=== PATIENT | male | born 1960 | race Caucasian/White ===

== ENCOUNTER → 2017-12-11 09:57 | Outpatient (CLI) | payer OTHER, SELFPAY ==
--- NOTE | 2017-12-11 15:29 | PFTCOMP_ITS ---
COMPLETE PULMONARY FUNCTION TEST INTERPRETATION Brief HPI: Patient is a 57 year old male, currently under the care of myself, who presents to [facility] for complete pulmonary function tests secondary to diagnosis of dyspnea. Respiratory therapist reports good effort and reproducible results. Interpretation: Forced expiration spirometry shows no large airways obstructive ventilatory defect with an FEV1 of 93% predicted. There is no significant bronchodilator response by ATS criteria. Spirograms are of good quality and plateau normally. The respiratory flow volume loop shows a normal pattern. Lung volumes by body plethysmography show a decreased total lung capacity at 5.25 L, 82% predicted. All other lung volumes are reduced symmetrically. Diffusion capacity by carbon monoxide is normal at 91% predicted. The airway resistance is normal. Compared to previous pulmonary function tests from 11/09/2016, there has been no significant change. Impression: Mild restrictive ventilatory defect with preserved diffusion capacity consistent with musculoskeletal limitation.
== END ==
PROVIDERS: Family Provider Internal Medicine; PCP Internal Medicine; Visit Provider Internal Medicine Critical Care Medicine
DX: J20.9 Acute bronchitis, unspecified (principal)
CPT/HCPCS: 94060; 94726; 94729

== ENCOUNTER 2020-08-26 07:52 | Outpatient (RCR) | payer OTHER, SELFPAY ==
[2017-12-20 12:40] VITALS: BMI 35.6
== END 2020-10-12 23:59 ==
LOC: IMMUN 07:52
PROVIDERS: PCP Internal Medicine; Referring Provider Family Medicine; Visit Provider Family Medicine
DX: Z23 Encounter for immunization (principal)
CPT/HCPCS: 0001A; 0002A; 91300

== ENCOUNTER → 2020-10-14 06:18 | Outpatient (CLI) | payer OTHER, SELFPAY ==
--- NOTE | 2020-10-14 18:18 | STRESSREP ---
Stress Test Report Exercise cardial perfusion stress test. 60-year-old man with a history of chest pain. Stress protocol: Rest EKG demonstrates normal sinus rhythm with a rate of 78 bpm normal intervals are noted resting blood pressure is 120/82 mmHg. The patient exercised according to regular Surjit protocol for total duration of 6 minutes and 30 seconds. Patient completed 30 seconds into stage III of the Surjit protocol the maximum heart rate attained was 150 bpm which was 94% of maximum predicted heart rate and maximum workload was 7.4 metabolic equivalents. At rest there were no ST or T wave changes noted to suggest ischemia and at peak exercise upsloping ST changes only were noted with did not meet the criteria for ischemia the test was terminated due to shortness of breath. The peak blood pressure was 140/62 mmHg. Myocardial perfusion protocol. 14.4 mCi of technetium 99m sestamibi was injected at rest. The patient exercised according to regular Surjit protocol for 6-1/2 minutes and at peak exercise 44.7 mCi of technetium 99m sestamibi was injected stress images were obtained stress and rest images were reconstructed in comparing the short axis vertical long and horizontal long axis. Gated images were also obtained Perfusion SPECT analysis: Review of the stress images demonstrate normal uptake of tracer noted in all areas of the myocardium. The resting images similarly demonstrate normal uptake of tracer noted in all areas of the myocardium. No areas of reversibility were noted to suggest ischemia and no previous infarct is noted. Gated SPECT analysis: The gated ejection fraction is 74%. Conclusion: Normal exercise myocardial perfusion stress test at a moderate workload. Preserved ejection fraction.
== END ==
PROVIDERS: PCP Internal Medicine; Referring Provider Internal Medicine; Visit Provider Internal Medicine
DX: R00.0 Tachycardia, unspecified (principal); R06.00 Dyspnea, unspecified; R06.02 Shortness of breath
CPT/HCPCS: 78452; 93017; A9500; A4216

== ENCOUNTER → 2022-11-17 | Outpatient (CLI) | payer BC, SELFPAY ==
--- NOTE | 2022-11-18 07:55 | PFT ---
INTRODUCTION: The patient is a 62-year-old male that presents for pulmonary function studies secondary to a diagnosis of asthma. Respiratory therapy reported good patient effort. Bronchodilators were used during testing. INTERPRETATION: Forced expiration spirometry demonstrates no evidence of a large airways obstructive ventilatory defect. There was no significant response to aerosolized bronchodilators. Spirograms are of good quality and plateau normally. Body plethysmography was performed and revealed a decreased TLC to 5.04 L, 79% of predicted, indicative of a mild restrictive ventilatory impairment. Diffusing capacity by single breath CO was within normal limits. IMPRESSION: Mild restrictive ventilatory impairment with preserved diffusing capacity.
== END | disposition home or self-care (01) ==
PROVIDERS: PCP Internal Medicine; Referring Provider Internal Medicine Critical Care Medicine; Visit Provider Internal Medicine Critical Care Medicine
DX: J45.909 Unspecified asthma, uncomplicated (principal)
CPT/HCPCS: 94060; 94726; 94729

== ENCOUNTER → 2024-01-01 | Outpatient (CLI) | payer MEDICARE, BC, SELFPAY ==
[2024-01-01 09:22] LABS: Absolute Lymphocyte Count 3.14 X10^3/uL (0.83-4.51); Basophil# 0.05 X10^3/uL; Basophil% 0.6 % (0-1); Eosinophil# 0.26 X10^3/uL; Eosinophils% 3.2 % (0-5); Hematocrit 47.7 % (40-54); Hemoglobin 15.8 g/dL (13.0-16.5); Lymphocyte # 3.14 X10^3/ul (0.83-4.51); Lymphocyte % 38.2 % (19-41); Mean Corp Hgb Conc 33.1 g/dL (32-36); Mean Corpuscular Hgb 30.1 pg (27.0-32.0); Mean Corpuscular Volume 90.9 fL (80-94); Mean Platelet Vol. 10.2 fl (6.2-12.0); Monocyte# 0.74 X10^3/uL; NRBC Flagged by Analyzer 0 % (0-5); Neutrophil % 48.6 % (47-70); Platelet Count 299 K/mm3 (150-450); RBC Distribution Width CV 12.2 % (11.6-14.6); RBC Distribution Width SD 40.6 fl (35.1-43.9); Red Blood Count 5.25 M/mm3 (4.6-6.2); White Blood Count 8.2 K/mm3 (4.4-11.0)
[2024-01-01 15:03] LABS: Vitamin B12 1375 pg/mL (211-911)
[2024-01-01 17:21] LABS: ALB/GLOB Ratio 0.9 RATIO (0.9-2.4); AST(SGOT) 23 U/L (15-37); Alanine Aminotransfer ALT/SGPT 35 U/L (16-61); Albumin, Serum 3.6 g/dL (3.2-5.0); Alkaline Phosphatase 106 U/L (45-117); Anion Gap 9 (5-15); BUN 13 mg/dL (7-18); BUN/Creat Ratio 13.8 RATIO (10-20); Calcium,Total 9.4 mg/dL (8.5-10.1); Chloride 101 mmol/L (98-107); Cholesterol 136 mg/dL (200); Creatinine, Serum 0.94 mg/dL (0.70-1.30); EST Glomerular Filtration Rate 85 mL/min (>60); Est Glom Filt Rate - Afr Amer 103 mL/min (>60); Ferritin 28 ng/mL (26-388); Globulin 3.8 g/dL (2.2-4.2); Glucose 157 mg/dL (74-106); High Density Lipoprotein 51 mg/dL; Potassium 4.2 mmol/L (3.5-5.1); Protein, Total 7.4 g/dL (6.4-8.2); Sodium Level 136 mmol/L (136-145); Triglycerides 184 mg/dL; Very Low Density Lipoprotein 37 mg/dL (5-40)
== END | disposition home or self-care (01) ==
PROVIDERS: PCP Internal Medicine; Referring Provider Nurse Practitioner Family; Visit Provider Nurse Practitioner Family
DX: R53.83 Other fatigue (principal); E11.9 Type 2 diabetes mellitus without complications; E55.9 Vitamin D deficiency, unspecified; D64.9 Anemia, unspecified
CPT/HCPCS: 36415; 80053; 80061; 82306; 82607; 82728; 84443; 85025

== ENCOUNTER → 2024-05-19 | Outpatient (CLI) | payer MEDICARE, BC, SELFPAY ==
[2024-05-19] MEDS: Zolpidem Tartrate 5 MG Tablet PO (21:25)
== END | disposition home or self-care (01) ==
LOC: SL 19:49
PROVIDERS: PCP Internal Medicine; Referring Provider Nurse Practitioner Family; Visit Provider Nurse Practitioner Family
DX: G47.33 Obstructive sleep apnea (adult) (pediatric) (principal)
CPT/HCPCS: 95810; 95811

== ENCOUNTER 2024-06-09 16:02 | Emergency (ER) | payer MEDICARE, BC, SELFPAY ==
[2024-06-09 16:03] VITALS: BP 120/73; PULSE 93; RESP 18; TEMP 36.6; O2SAT 98; BMI 31.0
[2024-06-09 17:42] VITALS: O2SAT 98
[2024-06-09] MEDS: 0.9% Normal Saline (500mL Bag) 500 ML 1000 ML IV (18:28)
--- NOTE | 2024-06-09 18:30 | RAD_ITS ---
PROCEDURE: CHEST PA AND LATERAL REASON FOR EXAM: Increased weakness; fatigue; cough and congestion. TECHNIQUE: Frontal and lateral views of the chest. COMPARISON: None. FINDINGS: The heart size is normal. The mediastinal contour is unremarkable. The lungs are clear. The bones are unremarkable. RAD/Chest PA and Lateral IMPRESSION: NEGATIVE CHEST Reading Location: [id number]
[2024-06-09 18:46] LABS: Absolute Lymphocyte Count 2.85 X10^3/uL (0.83-4.51); Absolute Neutrophil Count 2.3 X10^3/uL (2.0-7.7); Basophil# 0.01 X10^3/uL; Basophil% 0.2 % (0-1); Eosinophils% 1.7 % (0-5); Hematocrit 46.1 % (40-54); Hemoglobin 15.3 g/dL (13.0-16.5); Lymphocyte # 2.85 X10^3/ul (0.83-4.51); Lymphocyte % 48.4 % (19-41); Mean Corp Hgb Conc 33.2 g/dL (32-36); Mean Corpuscular Hgb 30.1 pg (27.0-32.0); Mean Corpuscular Volume 90.6 fL (80-94); Mean Platelet Vol. 10.3 fl (6.2-12.0); Monocyte# 0.62 X10^3/uL; Monocyte% 10.5 % (0-10); NRBC Flagged by Analyzer 0 % (0-5); Platelet Count 255 K/mm3 (150-450); RBC Distribution Width CV 12.1 % (11.6-14.6); RBC Distribution Width SD 40.2 fl (35.1-43.9); Red Blood Count 5.09 M/mm3 (4.6-6.2); White Blood Count 5.9 K/mm3 (4.4-11.0)
--- NOTE | 2024-06-09 18:47 | EDS_ITS ---
HPI History of Present Illness Chief Complaint: Shortness of Breath Informant: patient and spouse/S.O. Narrative Narrative: History of asthma and diabetes, 1 with history of fatigue not feeling well. Mild cough productive. No fevers. No urinary symptoms. Had diarrhea yesterday but states he must ate something bad. Denies black or bloody stools. Denies nausea or vomiting. States mild wheezing. Reports his pulse ox at home was in the 80s throughout the week. Denies any tobacco history. Prior similar symptoms: No PFSH PFSH Medical History Obesity Polyneuropathy due to type 2 diabetes mellitus Diabetes GERD (gastroesophageal reflux disease) Neuropathy Asthma Acute bronchitis Sepsis Hyperlipidemia Hypertension Type 2 diabetes mellitus Home Medications ?Medication ?Instructions ?Recorded ?Last Taken ?Type multivitamin (Multiple Vitamins 1 ea PO DAILY 08/22/16 08/21/16 History tablet) atorvastatin 10 mg tablet 10 mg PO QHS 10/13/20 Unknow n History tamsulosin 0.4 mg capsule 0.4 mg PO QHS 10/13/20 Unkno wn History pen needle, diabetic 32 gauge x #100 ea 10/26/21 Unkno wn Rx (BD Ultra-Fine Wendy Pen Needle) omeprazole magnesium 20 mg 20 mg PO DAILY 10/31/22 Unk nown History tablet,delayed release (Prilosec OTC) lisinopril 5 mg tablet 2.5 mg PO DAILY 06/25/23 Unk nown History metformin 1,000 mg tablet 1,000 mg PO BIDWMEAL #180 ta bs 10/06/23 Unknown Rx cyanocobalamin (vitamin B-12) 1,000 mcg PO DAILY 12/23 Unknown History 1,000 mcg tablet dulaglutide 4.5 mg/0.5 mL 4.5 mg (0.5 mL) subcut QWEEK #6 mL 02/04/24 Unknown Rx subcutaneous pen injector (Trulicity) dapagliflozin propanediol 10 mg 10 mg PO QDAY #90 tabs 04/09/24 Unknown Rx tablet (Farxiga) melatonin 5 mg capsule mg PO HS PRN 05/09/24 Unknow n History Allergy/AdvReac Type Severity Reaction Status Date / Time No Known Allergies Allergy Verified 06/09/24 16:03 Family History Father CVA (cerebral vascular accident) Diabetes Heart disease Myocardial infarction, Onset Age: 64 Mother Diabetes Grandfather Diabetes Other High cholesterol Hypertension Skin cancer Social History Smoking Status: Never smoker second hand exposure: No alcohol intake: never substance use type: does not use caffeine: No what type of physical activity do you participate in: none ROS ROS ED Constitutional Constitutional ED: Reports other Details: Fatigue ; Denies chills, fever(s) or sweats ENT ENT ED: Denies sore throat Cardiovascular Cardiovascular: Denies chest pain, leg edema, palpitations or racing heartbeat Respiratory/Chest Respiratory/Chest: Reports cough; Denies dyspnea or dyspnea on exertion Gastrointestinal Gastrointestinal: Reports diarrhea; Denies abdominal pain, nausea or vomiting Genitourinary Genitourinary ED: Denies dysuria, hematuria or urinary frequency Musculoskeletal Musculoskeletal: Denies back pain, extremity pain or neck pain Integumentary Denies rash or wounds Neurologic Neurologic: Denies headache(s), paresthesias or weakness EXAM Physical Exam Const Vital Signs: 06/09/24 16:03 06/09/24 17:42 06/09/24 20:00 Temperature 98 F 97.6 F L Temperature Source Oral Oral Pulse Rate 93 67 Respiratory Rate 18 18 Respiratory Effort Normal Respiratory Depth Normal Respiratory Pattern Normal Blood Pressure 120/73 112/84 H Blood Pressure Mean 88 93 Pulse Ox 98 98 Oxygen Delivery Method Room Air Room Air Room Air Positive well nourished and well developed General Appearance ED: well developed and NAD HEENT HEENT Narrative: Mild dry mucosal membranes. normocephalic and atraumatic Eyes General Eye ED: Yes normal appearance of both eyes Neck full ROM Chest Wall Chest: Negative for tenderness Resp normal respiratory effort and normal air movement Effort and Inspection: symmetric chest movement; Negative for respiratory distress Cardio regular rate, regular rhythm and no murmurs Peripheral Pulses: pulses 2+ throughout GI normal to inspection, nondistended, normoactive bowel sounds and non-tender Palpation: Negative for guarding or rebound tenderness present Extremity normal to inspection General Extremety ED: Negative for edema or tenderness General Extremity: Negative for edema Neuro oriented x3 and no sensory deficits noted Sensorium / Orientation: awake and alert Skin no rashes or lesions noted and no wounds MDM MDM MDM Narrative Medical decision making narrative: Interventions / MDM: Differential diagnosis: Viral syndrome, history of asthma Diagnosis considered but do not suspect: Pneumonia however chest x-ray negative. My EKG interpretation: N/A Imaging independently reviewed and interpreted by myself: 2 view chest x-ray no acute process also read by radiology. External documents reviewed: N/A Test considered but not ordered:N/A ED course: Vital stable 98% room air on arrival no respiratory distress. Cough fatigue with wheeze symptoms. Will check chest x-ray labs and viral swabs. Will dose with prednisone with his asthma history reported wheezing at home. Chest x-ray negative labs negative. Swabs positive for influenza A. Day 6 of symptoms outside the window for antivirals. He is continued on prednisone with his asthma history. Outpatient follow-up. All questions were answered. Re-evaluation: stable Disposition discussed with patient/family/significant other: Patient Case discussed with consulting clinician: N/A This note was generated with [email or web address] dictation software. It may contain incorrect words, spelling, and punctuation that were not noted in checking the note before signing. Lab Data Attestation: I reviewed the patient's lab results. Labs: Laboratory Results - last 24 hr 06/09/24 18:14 WBC 5.9 RBC 5.09 Hgb 15.3 Hct 46.1 MCV 90.6 MCH 30.1 MCHC 33.2 RDW Std Deviation 40.2 RDW Coeff of Mauro 12.1 Plt Count 255 MPV 10.3 Immature Gran % (Auto) 0.200 Neut % (Auto) 39.0 L Lymph % (Auto) 48.4 H [place] % (Auto) 10.5 H Eos % (Auto) 1.7 Baso % (Auto) 0.2 Absolute Neuts (auto) 2.3 Absolute Lymphs (auto) 2.85 Nucleated RBC % 0 Sodium 137 Potassium 4.1 Chloride 105 Carbon Dioxide 24.0 Anion Gap 8 BUN 13 Creatinine 0.85 Estim Creat Clear Calc 98.68 Est GFR (MDRD) Af Amer 116 Est GFR (MDRD) Non-Af 96 BUN/Creatinine Ratio 15.2 Glucose 132 H Calcium 8.9 Radiography Diagnostic Testing: Clinical Impression(s) from Imaging Studies Chest X-Ray 06/09/24 18:30 IMPRESSION: NEGATIVE CHEST Reading Location: [id number] Discharge Plan Triage Chief Complaint: Shortness of Breath ED Provider: Ed Montoya Dx/Rx/DC Orders Clinical Impression: Influenza A, Viral syndrome, History of diabetes mellitus Instructions: ED Influenza (Adult) Prescriptions: No Action atorvastatin 10 mg tablet 10 mg PO QHS tamsulosin 0.4 mg capsule 0.4 mg PO QHS (DME) pen needle, diabetic [BD Ultra-Fine Wendy Pen Needle] 32 gauge x 5/32 needle See Rx Instructions .Route Qty: 100 3RF Rx Instructions: once daily omeprazole magnesium [Prilosec OTC] 20 mg tablet,delayed release (DR/EC) 20 mg PO DAILY cyanocobalamin (vitamin B-12) 1,000 mcg tablet 1,000 mcg PO DAILY melatonin 5 mg capsule PO HS PRN multivitamin [Multiple Vitamins] 1 EACH tablet 1 ea PO DAILY Patient Comments: SUPPLEMENT lisinopril 5 mg tablet 2.5 mg PO DAILY Patient Comments: BLOOD PRESSURE metformin 1,000 mg tablet 1,000 mg PO BIDWMEAL Qty: 180 3RF Trulicity 4.5 mg/0.5 mL pen injector 4.5 mg subcut QWEEK Qty: 6 1RF dapagliflozin propanediol [Farxiga] 10 mg tablet 10 mg PO QDAY Qty: 90 3RF Primary Care Provider: Les Elizalde Referrals: Les Elizalde MD [Primary Care Provider] - 1 Week Activity Restrictions/Additional Instructions: Influenza A positive. COVID-negative. RSV negative. Chest x-ray negative. Labs stable glucose 132. Continue oral fluids for hydration. Follow-up with your doctor. Print Language: Tamazight Disposition Disposition: Home, Self Care Discharge Date/Time: 06/09/24 20:03
[2024-06-09 18:50] LABS: Anion Gap 8 (5-15); BUN 13 mg/dL (7-18); BUN/Creat Ratio 15.2 RATIO (10-20); Calcium,Total 8.9 mg/dL (8.5-10.1); Chloride 105 mmol/L (98-107); Creatinine, Serum 0.85 mg/dL (0.70-1.30); EST Glomerular Filtration Rate 96 mL/min (>60); Est Glom Filt Rate - Afr Amer 116 mL/min (>60); Estimated Creatinine Clearance 98.68 ml/min; Glucose 132 mg/dL (74-106); Potassium 4.1 mmol/L (3.5-5.1); Sodium Level 137 mmol/L (136-145)
[2024-06-09] MEDS: predniSONE 20 MG Tablet 60 MG PO (19:21)
[2024-06-09 20:00] VITALS: BP 112/84; PULSE 67; RESP 18; TEMP 36.4; O2SAT 98
== END 2024-06-09 20:03 | disposition home or self-care (01) ==
PROVIDERS: Emergency Provider Emergency Medicine; PCP Internal Medicine; Visit Provider Emergency Medicine
DX: J10.1 Influenza due to other identified influenza virus with other respiratory manifestations (principal); E11.42 Type 2 diabetes mellitus with diabetic polyneuropathy; I10 Essential (primary) hypertension; E78.5 Hyperlipidemia, unspecified; Z79.84 Long term (current) use of oral hypoglycemic drugs; Z79.85 Long-term (current) use of injectable non-insulin antidiabetic drugs; Z79.899 Other long term (current) drug therapy
CPT/HCPCS: 71046; 80048; 85025; 87631; 96360; 99282; A4216

== ENCOUNTER → 2024-06-13 | Outpatient (CLI) | payer MEDICARE, BC, SELFPAY ==
[2024-06-13] MEDS: Zaleplon 5 MG Capsule PO (22:11)
== END | disposition home or self-care (01) ==
LOC: SL 20:14
PROVIDERS: PCP Internal Medicine; Referring Provider Nurse Practitioner Family; Visit Provider Nurse Practitioner Family
DX: G47.33 Obstructive sleep apnea (adult) (pediatric) (principal)
CPT/HCPCS: 95811

== ENCOUNTER → 2024-09-09 | Outpatient (CLI) | payer MEDICARE, BC, SELFPAY | END | disposition home or self-care (01) | LOC: PSN 08:10 | PROVIDERS: PCP Internal Medicine; Referring Provider Nurse Practitioner Family; Visit Provider Nurse Practitioner Family | DX: R09.02 Hypoxemia (principal) | CPT/HCPCS: 94060; 94726; 94729 ==

== ENCOUNTER → 2024-09-16 | Outpatient (CLI) | payer MEDICARE, BC, SELFPAY ==
[2024-09-16 08:17] VITALS: PULSE 84; PULSE 86; PULSE 90; PULSE 96; PULSE 98; PULSE 99; O2SAT 93; O2SAT 94; O2SAT 95; O2SAT 96
--- NOTE | 2024-09-19 11:25 | PCM.PSN.6M ---
PSN 6 Minute Walk Test 6 Minute Walk Test 6 Minute Walk Test: 6 Minute Walk Test PSN:6-Minute Walk Test Start: 09/16/24 08:17 Freq: Status: Active Protocol: [id number] Document 09/16/24 08:17 DENZEL (Rec: 09/16/24 08:19 DENZEL [id number]) 6 Minute Walk Test Date Performed 09/16/24 Time Performed 08:00 Height 5 ft 9 in Weight: 215 lb Weight in Pounds [address]: Luanne Bar Assistive device None used: Pre-test Oxygen Delivery Room Air Method Pulse Ox (%) 96 Pulse Rate (60-100 86 beats/min) Dyspnea Emmy Scale ( 0 0-10) Exertion Emmy Scale 6 (6-20) 1st minute Oxygen Delivery Room Air Method Pulse Ox (%) 95 Pulse Rate (60-100 90 beats/min) 2nd minute Oxygen Delivery Room Air Method Pulse Ox (%) 94 Pulse Rate (60-100 96 beats/min) 3rd minute Oxygen Delivery Room Air Method Pulse Ox (%) 93 Pulse Rate (60-100 98 beats/min) 4th minute Oxygen Delivery Room Air Method Pulse Ox (%) 95 Pulse Rate (60-100 99 beats/min) 5th minute Oxygen Delivery Room Air Method Pulse Ox (%) 94 Pulse Rate (60-100 99 beats/min) 6th minute Oxygen Delivery Room Air Method Pulse Ox (%) 95 Pulse Rate (60-100 99 beats/min) Dyspnea Emmy Scale ( 2 0-10) Exertion Emmy Scale 12 (6-20) Post-test Oxygen Delivery Room Air Method Pulse Ox (%) 96 Pulse Rate (60-100 84 beats/min) Full Laps Walked 23 Partial Lap, Number 2 of Tiles Walked Total Distance 1359 Walked (ft) Interpretation Interpretation: The patient ambulated 1359 feet over the course of 6 minutes beginning on room air without assistive devices. Pretesting oxygen saturation was noted to be 96% on room air. With ambulation, the shawna oxygen saturation was 93%. There was no significant exertional oxygen desaturation. Recommendations Recommendations: There is no indication for the use of supplemental oxygen at this time.
== END | disposition home or self-care (01) ==
LOC: PSN 07:59
PROVIDERS: PCP Internal Medicine; Referring Provider Nurse Practitioner Family; Visit Provider Nurse Practitioner Family
DX: R09.02 Hypoxemia (principal)
CPT/HCPCS: 94618

== ENCOUNTER → 2024-12-11 | Outpatient (CLI) | payer MEDICARE, BC, SELFPAY ==
--- OUTSIDE RECORDS SUMMARY | 2024-12-11 09:52 | XMS RPT_ITS | CCD ---
Author Organization [facility] Care Team Providers Care Java Web Services Developer Name Role Phone Blake SOFTWARE CLERK, Mary Julianna Unavailable Unavaila ble Yensho SOFTWARE CLERK, Eli A Unavailable Unavailab le Blake SOFTWARE CLERK, Mary Julianna Unavailable Unavaila ble Blake SOFTWARE CLERK, Mary Julianna Unavailable Unavaila Les Huerta MD Primary Care Provider Les Viramontes MD Primary Care Provider Les Viramontes MD Primary Care Provider Dr. Les Viramontes Primary Care Provider Dr. Les Viramontes Referring Provider BEN Wick Attending Provider Dr. Surjit Barrera Attending Provider Dr. Surjit Barrera Referring Provider Dr. Surjit Barrera Other Provider Dr. Lex Dial Attending Provider Les Viramontes MD Primary Care Provider Juana CRITICAL CARE EDUCATOR.BUILDING INSPECTION ENGINEER, Marisa M Unavailable Dr. Les Viramontes MD Primary Care Provider Luanne Nice Attending Provider Luanne Nice Referring Provider Dr. Ed Montoya DO Attending Provider Dr. Ed Montoya DO Emergency Provider Dr. Les Viramontes MD Referring Provider Delano NURSING UNIT CLERK-CGladys Attending Provider [phone] VIRAMONTES, SHIVA Referring Unavailable VIRAMONTES, SHIVA Primary Care Unavailable VIRAMONTES, SHIVA Attending Unavailable VIRAMONTES, SHIVA Primary Care Unavailable SELF Referring Unavailable VIRAMONTES, SHIVA Primary Care Unavailable VIRAMONTES, SHIVA Primary Care Unavailable VIRAMONTES, SHIVA Attending Unavailable VIRAMONTES, SHIVA Referring Unavailable VIRAMONTES, SHIVA Primary Care Unavailable VIRAMONTES, SHIVA Primary Care Unavailable VIRAMONTES, SHIVA Attending Unavailable Dr. Les Viramontes MD Primary Care Provider Dipika GUTIERRES-CLuanne Attending Provider Dipika NURSING UNIT CLERK-C, Luanne Coto Referring Provider Dr. Lex Dial DO Attending Provider [phone] Dipika GUTIERRES-C, Luanne Coto Other Provider [phone] Tonio, Les Primary Care Unavailable dE Montoya Attending Unavailable Luanne Bar Attending Unavailable Luanne Bar Referring Unavailable Tonio, Les Primary Care Unavailable Gladys Wick Referring Unavailable Gladys Wick Attending Unavailable Viramontes, Les Primary Care Unavailable Luanne Bar Attending Unavailable Tonio, Les Primary Care Unavailable Tonio, Les Referring Unavailable Lex Dial Attending Unavailable Luanne Bar Referring Unavailable Tonio, Les Primary Care Unavailable Lex Dial Attending Unavailable Luanne Bar Consulting Unavailable Luanne Bar Referring Unavailable Viramontes, Les Primary Care Unavailable Gladys Wick Attending Unavailable Viramontes, Les Primary Care Unavailable Viramontes, Les Referring Unavailable Luanne Bar Attending Unavailable Viramontes, Les Primary Care Unavailable Viramontes, Les Referring Unavailable Gladys Wick Attending Unavailable Viramontes, Les Referring Unavailable Viramontes, Les Primary Care Unavailable Gladys Wick Attending Unavailable Viramontes, Les Referring Unavailable Viramontes, Les Primary Care Unavailable Gladys Wick Attending Unavailable Viramontes, Les Primary Care Unavailable Viramontes, Les Referring Unavailable Luanne Bar Attending Unavailable Les Viramontes Referring Unavailable Les Viramontes Primary Care Unavailable Luanne Bar Attending Unavailable Luanne Bar Referring Unavailable Les Viramontes Primary Care Unavailable Luanne Bar Attending Unavailable Luanne Bar Referring Unavailable Les Viramontes Primary Care Unavailable Luanne Bar Attending Unavailable Luanne Bar Referring Unavailable Les Viramontes Primary Care Unavailable Luanne Bar Attending Unavailable Luanne Bar Referring Unavailable Les Viramontes Primary [facility] Unavailable Allergies Allergy Classification Reported Allergen(s) Allergy Type Date of Onset Reaction(s) Facility (1 source) Seasonal Allergies: Uncoded; Translations: [Seasonal Allergies: Uncoded] Propensity to adverse reactions (disorder) [facility] Repository Medications Current Medications Medication Drug Class(es) Dates Sig (Normalized) Sig (Original) amoxicillin 875 mg / clavulanate 125 mg oral tablet (1 source) Penicillin-class Antibacterial Start: 10-08-2022 End: 10-13-2022 take 1 tablet by mouth twice daily amoxicillin-clavula jasen acid (AUGMENTIN) 875-125 mg per tablet Take 1 tablet by mouth twice daily for 5 days. 10 tablet 0 10/08/2022 10/13/2022 Active Comment on above: Take 1 tablet by marci th twice daily for 5 days. atorvastatin 10 mg oral tablet (20 sources) HMG-CoA Reductase Inhibitor Start: 10-13-2020 End: 07-01-2024 take 1 tablet by mouth at bedtime Atorvastatin 10 mg tablet Active 10 mg PO AT BEDTIME October 13, 2020 12:00am Comment on above: Take 1 tablet by marci th daily at bedtime. betamethasone 0.5 mg/ml / clotrimazole 10 mg/ml topical cream (1 source) Azole Antifungal, Corticosteroid Start: 05-10-2022 End: 05-24-2022 clotrimazole-betame thasone (LOTRISONE) cream Apply to affected area twice daily for 14 days. 45 g 0 05/10/2022 05/24/2022 Active Comment on above: Apply to affected ar ea twice daily for 14 days. cephalexin 500 mg oral capsule (1 source) Cephalosporin Antibacterial Start: 01-26-2024 End: 01-31-2024 take 1 capsule by mouth four times daily cephALEXin (KEFLEX) 500 mg capsule Take 1 capsule by mouth four times daily for 5 days. 20 capsule 01/26/2024 01/31/2024 Active ciclopirox 7.7 mg/ml topical cream (1 source) Start: 03-10-2022 End: 04-09-2022 ciclopirox (LOPROX) 0.77 % cream Indications: Erythema intertrigo Apply to affected area twice daily. Left axillary rash 30 g 0 03/10/2022 04/09/2022 Active Comment on above: Apply to affected ar ea twice daily. Left axillary rash dapagliflozin 10 mg oral tablet (6 sources) Sodium-Glucose Cotransporter 2 Inhibitor Start: 04-09-2024 End: 10-29-2024 take 1 tablet by mouth once daily Dapagliflozin Propanediol (Farxiga) 10 mg tablet Active 10 mg PO daily 90 October 29, 2024 11:32am Diabetes mellitus Type 2 diabetes mellitus with hyperglycemia dulaglutide (TRULICITY) 4.5 mg/0.5 mL pen injector (6 sources) Start: 09-21-2023 inject 4.5 mg by subcutaneous injection once dulaglutide (TRULICITY) 4.5 mg/0.5 mL pen injector Indications: Type 2 diabetes mellitus with diabetic neuropathy, without long-term current use of insulin (HCC) Inject 4.5 mg subcutaneously one time a week. Per Endo. 09/21/2023 Active Start: 09-21-2023 inject 4.5 mg by sub cutaneous injection once dulaglutide (TRULICITY) 4.5 mg/0.5 mL pen injector Indications: Type 2 diabetes mellitus with diabetic neuropathy, without long-term current use of insulin (HCC) Inject 4.5 mg subcutaneously one time a week. Per Endo. 0 09/21/2023 Active lisinopril 2.5 mg oral tablet (20 sources) Angiotensin Converting Enzyme Inhibitor Start: 11-28-2024 take 1 tablet by mouth every other day Lisinopril 2.5 mg tablet Active 2.5 mg PO .November 28, 2024 12:00am 2.5 mg orally Every other day; Start: 08-06-2024 End: 11-05-2024 take 2.5 mg by mouth every other day Lisinopril 5 mg tablet Discontinued 2.5 mg PO every other day August 06, 2024 2:54pm November 05, 2024 2:41pm Start: 06-25-2023 End: 08-06-2024 take 2.5 mg by mouth once daily Lisinopril 5 mg tablet Discontinued 2.5 mg PO DAILY June 25, 2023 3:20pm August 06, 2024 2:54pm Start: 03-23-2023 End: 07-01-2024 take 1 tablet by mouth once daily lisinopril 2.5 mg tablet Indications: Essential hypertension Take 1 tablet by mouth once daily. 90 tablet 3 07/02/2024 Active Start: 08-22-2016 End: 06-25-2023 take 1 tablet by mouth once daily Lisinopril 5 MG tablet Discontinued 5 mg PO DAILY August 22, 2016 12:00am June 25, 2023 3:21pm Comment on above: Take 1 tablet by marci th once daily. melatonin 5 mg oral capsule (6 sources) Start: 05-09-2024 take 1 mg by mouth at bedtime as needed Melatonin 5 mg capsule Active mg PO BEDTIME as needed May 09, 2024 1:00am End: 03-10-2022 take 1 tablet by mouth every twenty-four hours as needed melatonin 5 mg tablet Take 5 mg by mouth at bedtime as needed. 0 03/10/2022 Discontinued Comment on above: Take 5 mg by mouth a t bedtime as needed. MOUNJARO 2.5 mg/0.5 mL pen injector (1 source) Start: 09-02-19 25 inject 2.5 mg by subcutaneous injection once MOUNJARO 2.5 mg/0.5 mL pen injector Inject 2.5 mg subcutaneously one time a week. Per endo 2024 Active Multivitamin (Multiple Vitamins) 1 EACH tablet (4 sources) Start: 08-23-19 17 take 1 tablet by mouth once daily Multivitamin (Multiple Vitamins) 1 EACH tablet Active 1 NMA PO DAILY August 22, 2016 12:00am Start: 08-22-2016 take 1 tablet by marci th once daily Multivitamin (Multiple Vitamins) 1 EACH tablet Active 1 EACH PO DAILY August 22, 2016 12:00am MULTIVITAMIN TAB (15 sources) Start: 01-07-2008 MULTIVITAMIN TAB Indications: Diarrhea Take one(1) tablet daily. 0 01/07/2008 Active Comment on above: Take one(1) tablet d aily. omeprazole 20 mg delayed release oral tablet (15 sources) Proton Pump Inhibitor Start: 09-15-2022 take 1 tablet by mouth once daily Omeprazole Magnesium (Prilosec Otc) 20 mg tablet,delayed release (DR/EC) Active 20 mg PO DAILY October 31, 2022 12:00am Comment on above: Take 1 tablet by marci daily before breakfast. 1/2 hr before meal. sildenafil 100 mg oral tablet (3 sources) Phosphodiesterase 5 Inhibitor Start: 11-05-2024 take 50-100 mg by mouth once daily as needed Sildenafil 100 mg tablet Active 50 - 100 mg PO daily as needed November 05, 2024 12:00am Start: 09-26-2024 take 0.5-1 tablets b y mouth once daily as needed sildenafil (VIAGRA) 100 mg tablet Indications: Erectile dysfunction, unspecified erectile dysfunction type Take 0.5-1 tablets by mouth once daily as needed. Take 30-60 minutes before sexual activity. 5 tablet 1 09/26/2024 Active tamsulosin hydrochloride 0.4 mg oral capsule (20 sources) alpha-Adrenergic Paulino Start: 10-13-2020 End: 11-06-2024 take 1 capsule by mouth at bedtime Tamsulosin 0.4 mg capsule Active 0.4 mg PO AT BEDTIME October 13, 2020 12:00am Comment on above: Take 1 capsule by mo [facility] daily at bedtime. Tirzepatide (Mounjaro) 5 mg/0.5 mL pen injector (2 sources) Start: 11-05-2024 Tirzepatide (Mounjaro) 5 mg/0.5 mL pen injector Active 5 mg SC EVERY WEEK 2 November 05, 2024 12:00am Type 2 diabetes mellitus Type 2 diabetes mellitus without complications vitamin b12 1 mg oral tablet (3 sources) Vitamin B12 Start: 12-24-2023 take 1 tablet by mouth once daily Cyanocobalamin (Vitamin B-12) 1,000 mcg tablet Active 1000 ug PO DAILY December 24, 2023 12:00am Completed/Discontinued Medications Medication Drug Class(es) Dates Sig (Normalized) Sig (Original) 200 actuat albuterol 0.09 mg/actuat metered dose inhaler (4 sources) beta2-Adrenergic Agonist Start: 08-29-2016 take 2 puff(s) by inhalation every four hours as needed VENTOLIN HFA 108 (90 Base) MCG/ACT AERS INH 2 puffs q4h as needed ALBUTEROL SULFATE [id number] Mary Julianna Blake SOFTWARE CLERK Start: 08-29-2016 take 2 puff(s) by in halation every four hours as needed VENTOLIN HFA 108 (90 Base) MCG/ACT AERS INH 2 puffs q4h as needed ALBUTEROL SULFATE [id number] Mary Julianna Blake SOFTWARE CLERK azithromycin 250 mg oral tablet (4 sources) Macrolide Antimicrobial Start: 10-31-2022 End: 11-20-2022 Azithromycin 250 mg tablet Discontinued 0 PO .COMPLEX 6 0 October 31, 2022 12:00am November 20, 2022 1:30pm For 250 mg dose pack: take 500 mg today (day 1), then 250 mg for 4 days (days 2-5) PO Start: 10-31-2022 End: 11-20-2022 Azithromycin Discontinued 0 PO .COMPLEX 6 October 31, 2022 12:00am November 20, 2022 1:30pm For 250 mg dose pack: take 500 mg today (day 1), then 250 mg for 4 days (days 2-5) PO benzonatate 100 mg oral capsule (1 source) Non-narcotic Antitussive Start: 10-16-2022 take 100-200 mg by mouth every eight hours as needed for cough and cough benzonatate (TESSALON PERLES) 100 mg capsule Indications: Acute cough Take 1-2 capsules by mouth three times daily as needed. 30 capsule 0 10/16/2022 Active Comment on above: Take 1-2 capsules by mouth three times daily as needed. doxycycline hyclate 100 mg oral tablet (2 sources) Tetracycline-class Drug Start: 03-23-2023 End: 09-21-2023 take 1 tablet by mouth once daily doxycycline (VIBRA-TABS) 100 mg tablet Indications: Travel advice encounter Take 1 tablet by mouth once daily. Begin 1 day before foreign travel, and take for 4 weeks after returning from travel. 56 tablet 0 03/23/2023 09/21/2023 Discontinued Start: 05-29-2021 End: 10-28-2021 take 1 tablet by mouth once daily doxycycline (VIBRA-TABS) 100 mg tablet Indications: Travel advice encounter Take 1 tablet by mouth once daily. Begin 1 day before foreign travel, and take for 4 weeks after returning from travel. 56 tablet 0 05/29/2021 10/28/2021 Discontinued Comment on above: Take 1 tablet by marci once daily. Begin 1 day before foreign travel, and take for 4 weeks after returning from travel. Dulaglutide (20 sources) GLP-1 Receptor Agonist Start: 02-04-2024 End: 08-15-2024 Dulaglutide (Trulicity) 4.5 mg/0.5 mL pen injector Discontinued 4.5 mg SC EVERY WEEK 6 February 04, 2024 4:18pm August 15, 2024 1:43pm Type 2 diabetes mellitus Type 2 diabetes mellitus without complications Start: 02-04-2024 End: 08-15-2024 Dulaglutide (Trulicity) 4.5 mg/0.5 mL pen injector Discontinued 4.5 mg SC EVERY WEEK 6 February 04, 2024 4:18pm August 15, 2024 1:43pm Start: 11-15-2023 End: 02-04-2024 Dulaglutide (Trulicity) 4.5 mg/0.5 mL pen injector Discontinued 4.5 mg SC EVERY WEEK 6 November 15, 2023 2:34pm February 04, 2024 4:19pm Type 2 diabetes mellitus Type 2 diabetes mellitus without complications Start: 11-15-2023 End: 02-04-2024 Dulaglutide (Trulicity) 4.5 mg/0.5 mL pen injector Discontinued 4.5 mg SC EVERY WEEK 6 November 15, 2023 2:34pm February 04, 2024 4:19pm Start: 08-13-2023 End: 11-15-2023 Dulaglutide (Trulicity) 4.5 mg/0.5 mL pen injector Discontinued 4.5 mg SC EVERY WEEK 6 August 13, 2023 4:29pm November 15, 2023 2:34pm Type 2 diabetes mellitus Type 2 diabetes mellitus without complications Start: 08-13-2023 End: 11-15-2023 Dulaglutide (Trulicity) 4.5 mg/0.5 mL pen injector Discontinued 4.5 mg SC EVERY WEEK 6 August 13, 2023 4:29pm November 15, 2023 2:34pm Start: 08-07-2023 End: 08-13-2023 Dulaglutide (Trulicity) 4.5 mg/0.5 mL pen injector Discontinued 4.5 mg SC EVERY WEEK 6 August 07, 2023 5:21pm August 13, 2023 4:29pm Type 2 diabetes mellitus Type 2 diabetes mellitus without complications Start: 08-07-2023 End: 08-13-2023 Dulaglutide (Trulicity) 4.5 mg/0.5 mL pen injector Discontinued 4.5 mg SC EVERY WEEK August 07, 2023 5:21pm August 13, 2023 4:29pm Start: 06-25-2023 End: 08-07-2023 Dulaglutide (Trulicity) 4.5 mg/0.5 mL pen injector Discontinued 4.5 mg SC EVERY WEEK 6 June 25, 2023 1:00am August 07, 2023 5:22pm Type 2 diabetes mellitus Type 2 diabetes mellitus without complications Start: 06-25-2023 End: 08-07-2023 Dulaglutide (Trulicity) 4.5 mg/0.5 mL pen injector Discontinued 4.5 mg SC EVERY WEEK 6 June 25, 2023 1:00am August 07, 2023 5:22pm Start: 04-03-2023 End: 06-25-2023 Dulaglutide (Trulicity) 3 mg /0.5 mL pen injector Discontinued 3 mg SC EVERY WEEK 6 April 03, 2023 1:09pm June 25, 2023 3:45pm Diabetes mellitus Type 2 diabetes mellitus without complications Start: 04-03-2023 End: 06-25-2023 Dulaglutide (Trulicity) 3 mg /0.5 mL pen injector Discontinued 3 mg SC EVERY WEEK 6 April 03, 2023 1:09pm June 25, 2023 3:45pm Start: 03-01-2023 End: 04-03-2023 Dulaglutide (Trulicity) 3 mg /0.5 mL pen injector Discontinued 3 mg SC EVERY WEEK 6 March 01, 2023 5:06pm April 03, 2023 1:09pm Diabetes mellitus Type 2 diabetes mellitus without complications Start: 03-01-2023 End: 04-03-2023 Dulaglutide (Trulicity) 3 mg /0.5 mL pen injector Discontinued 3 mg SC EVERY WEEK 6 March 01, 2023 5:06pm April 03, 2023 1:09pm Start: 10-19-2022 End: 03-01-2023 Dulaglutide (Trulicity) 3 mg /0.5 mL pen injector Discontinued 3 mg SC EVERY WEEK 6 October 19, 2022 1:35pm March 01, 2023 5:06pm Diabetes mellitus Type 2 diabetes mellitus without complications Start: 10-19-2022 End: 03-01-2023 Dulaglutide (Trulicity) 3 mg /0.5 mL pen injector Discontinued 3 mg SC EVERY WEEK 6 October 19, 2022 1:35pm March 01, 2023 5:06pm Start: 10-19-2022 Dulaglutide (T rulicity) 3 mg/0.5 mL pen injector Active 3 MG SC EVERY WEEK 6 October 19, 2022 1:35pm Start: 08-21-2022 End: 10-19-2022 Dulaglutide (Trulicity) 3 mg /0.5 mL pen injector Discontinued 3 mg SC EVERY WEEK 6 August 21, 2022 12:00am October 19, 2022 1:35pm Diabetes mellitus Type 2 diabetes mellitus without complications Start: 08-21-2022 End: 10-19-2022 Dulaglutide (Trulicity) 3 mg /0.5 mL pen injector Discontinued 3 mg SC EVERY WEEK 6 August 21, 2022 12:00am October 19, 2022 1:35pm Start: 08-21-2022 End: 10-19-2022 Dulaglutide (Trulicity) 3 mg /0.5 mL pen injector Discontinued 3 MG SC EVERY WEEK 6 August 21, 2022 12:00am October 19, 2022 1:35pm Start: 12-05-2021 End: 09-15-2022 Dulaglutide (Trulicity) 1.5 mg/0.5 mL pen injector Discontinued 1.5 mg SC EVERY WEEK 6 April 17, 2022 9:19am August 21, 2022 1:43pm Diabetes mellitus Type 2 diabetes mellitus with hyperglycemia Start: 10-28-2021 End: 12-05-2021 Dulaglutide (Trulicity) 3 mg /0.5 mL pen injector Discontinued 3 mg SC EVERY WEEK 6 1 October 28, 2021 2:45pm December 05, 2021 2:55pm Start: 10-28-2021 End: 12-05-2021 Dulaglutide (Trulicity) 3 mg /0.5 mL pen injector Discontinued 3 mg SC EVERY WEEK 6 October 28, 2021 2:45pm December 05, 2021 2:55pm Start: 10-28-2021 End: 12-05-2021 Dulaglutide (Trulicity) 3 mg /0.5 mL pen injector Discontinued 3 MG SC EVERY WEEK 6 October 28, 2021 2:45pm December 05, 2021 2:55pm Start: 10-28-2021 End: 10-28-2021 Dulaglutide (Trulicity) 3 mg /0.5 mL pen injector Discontinued 3 mg SC EVERY WEEK 6 1 October 28, 2021 2:04pm October 28, 2021 2:45pm Start: 10-28-2021 End: 10-28-2021 Dulaglutide (Trulicity) 3 mg /0.5 mL pen injector Discontinued 3 mg SC EVERY WEEK 6 October 28, 2021 2:04pm October 28, 2021 2:45pm Start: 10-28-2021 End: 10-28-2021 Dulaglutide (Trulicity) 3 mg /0.5 mL pen injector Discontinued 3 MG SC EVERY WEEK 6 October 28, 2021 2:04pm October 28, 2021 2:45pm Start: 06-06-2021 End: 06-10-2021 Dulaglutide (Trulicity) 3 mg /0.5 mL pen injector Discontinued 3 mg SC EVERY WEEK 6 0 June 06, 2021 11:48am June 10, 2021 9:29am Start: 06-06-2021 End: 06-10-2021 Dulaglutide (Trulicity) 3 mg /0.5 mL pen injector Discontinued 3 mg SC EVERY WEEK June 06, 2021 11:48am June 10, 2021 9:29am Start: 06-06-2021 End: 06-10-2021 Dulaglutide (Trulicity) 3 mg /0.5 mL pen injector Discontinued 3 MG SC EVERY WEEK 6 June 06, 2021 11:48am June 10, 2021 9:29am Start: 11-01-2020 End: 06-06-2021 Dulaglutide (Trulicity) 3 mg /0.5 mL pen injector Discontinued 3 mg SC EVERY WEEK 6 November 01, 2020 12:00am June 06, 2021 11:49am Start: 11-01-2020 End: 06-06-2021 Dulaglutide (Trulicity) 3 mg /0.5 mL pen injector Discontinued 3 mg SC EVERY WEEK 6 November 01, 2020 12:00am June 06, 2021 11:49am Start: 11-01-2020 End: 06-06-2021 Dulaglutide (Trulicity) 3 mg /0.5 mL pen injector Discontinued 3 MG SC EVERY WEEK 6 November 01, 2020 12:00am June 06, 2021 11:49am Start: 10-13-2020 End: 11-01-2020 Dulaglutide (Trulicity) 1.5 mg/0.5 mL pen injector Discontinued 1.5 mg SC EVERY WEEK October 13, 2020 12:00am November 01, 2020 3:11pm Comment on above: Inject 1.5 mg subcut aneously one time a week. Inject once per week. Discard Pen After dulaglutide (TRULICITY) 3 mg/0.5 mL pen injector (1 source) Start: 021 End: 022 inject 3 mg by subcutaneous injection once dulaglutide (TRULICITY) 3 mg/0.5 mL pen injector Indications: Type 2 diabetes mellitus with diabetic neuropathy, without long-term current use of insulin (HCC) Inject 3 mg subcutaneously one time a week. Per Dr. Oneyda Haynes, endocrinology. 0 01/03/2021 10/28/2021 Discontinued Comment on above: Inject 3 mg subcutan eously one time a week. Per Dr. Oneyda Haynes, endocrinology. dulaglutide (TRULICITY) 3 mg/0.5 mL pen injector (5 sources) End: inject 3 mg by subcutaneous injection every week dulaglutide (TRULICITY) 3 mg/0.5 mL pen injector Indications: Type 2 diabetes mellitus with diabetic neuropathy, without long-term current use of insulin (HCC) Inject 3 mg subcutaneously one time a week. 09/21/2023 Discontinued End: 09-21-2023 inject 3 mg by subcutaneous injection every week dulaglutide (TRULICITY) 3 mg/0.5 mL pen injector Indications: Type 2 diabetes mellitus with diabetic neuropathy, without long-term current use of insulin (HCC) Inject 3 mg subcutaneously one time a week. 0 09/21/2023 Discontinued inject 3 mg by subcu taneous injection every week dulaglutide (TRULICITY) 3 mg/0.5 mL pen injector Indications: Type 2 diabetes mellitus with diabetic neuropathy, without long-term current use of insulin ([facility]) Inject 3 mg subcutaneously one time a week. 0 Active Comment on above: Inject 3 mg subcutan eously one time a week. empagliflozin 25 mg oral tablet (18 sources) Sodium-Glucose Cotransporter 2 Inhibitor Start: 06-25-19 End: 04-09-20 24 take 1 tablet by mouth once daily Empagliflozin (Jardiance) 25 mg tablet Discontinued 25 mg PO DAILY 3 March 11, 2024 8:58am April 09, 2024 9:25am Type 2 diabetes mellitus Type 2 diabetes mellitus without complications esomeprazole 20 mg delayed release oral capsule (9 sources) Proton Pump Inhibitor Start: 10-02-19 End: 11-01-19 23 take 1 capsule by mouth once daily Esomeprazole Magnesium (Nexium) 20 mg capsule,delayed release(DR/EC) Discontinued 20 mg PO DAILY October 13, 2020 12:00am October 31, 2022 1:51pm Comment on above: Take 1 capsule by [facility] daily before breakfast. 1/2 hr before meal. glipiZIDE er 5 mg 24 hr extended release oral tablet (20 sources) Sulfonylurea Start: 03-10-20 End: 09-16-19 23 take 1 tablet by mouth once daily glipiZIDE (GLUCOTROL XL) 5 mg 24 hr tablet Indications: Type 2 diabetes mellitus with diabetic neuropathy, without long-term current use of insulin ([facility]) Take 1 tablet by mouth once daily. 0 03/10/2022 09/15/2022 Discontinued Start: 07-11-2021 End: 09-21-2023 take 1 tablet by mouth twice daily Glipizide 5 mg tablet extended release 24hr Discontinued 5 mg PO TWICE A DAY 180 1 December 01, 2022 9:09am June 25, 2023 3:45pm Start: 04-26-2021 End: 10-28-2021 take 1 tablet by mouth once daily glipiZIDE (GLUCOTROL XL) 5 mg 24 hr tablet Indications: Type 2 diabetes mellitus with diabetic neuropathy, without long-term current use of insulin (HCC) Take 1 tablet by mouth once daily. 90 tablet 3 04/26/2021 10/28/2021 Discontinued Start: 10-13-2020 End: 07-11-2021 take 5 mg by mouth once daily Glipizide Discontinued 5 MG PO DAILY October 13, 2020 8:52am July 11, 2021 4:45pm Start: 08-22-2016 End: 07-11-2021 take 1 tablet by mouth once daily Glipizide 2.5 mg tablet extended release 24hr Discontinued 5 mg PO DAILY October 13, 2020 8:52am July 11, 2021 4:45pm Comment on above: Take 1 tablet by marci th twice daily with meals. Take 1 tablet by marci th once daily. Take 2 tablets by mo [facility] twice daily with meals. Take 1 tablet by marci th twice daily. Take 1 tablet by marci th two times a day. 3 ml insulin glargine 100 unt/ml pen injector (7 sources) Insulin Analog Start: End: inject 10 [IU] by subcutaneous injection once daily insulin glargine (LANTUS SOLOSTAR U-100 INSULIN) 100 unit/mL (3 mL) Indications: Type 2 diabetes mellitus with diabetic neuropathy, without long-term current use of insulin (HCC) Inject 10 Units subcutaneously once daily. 0 10/28/2021 03/10/2022 Discontinued (Course of therapy completed) Start: 10-26-2021 End: 08-21-2022 Insulin Glargine (Lantus Karen ostar U-100 Insulin) 100 unit/mL (3 mL) insulin pen Discontinued 15 U SC AT BEDTIME 13.5 1 October 26, 2021 12:00am August 21, 2022 1:43pm Comment on above: Inject 10 Units subc utaneously once daily. levoFLOXacin 500 mg oral tablet (8 sources) Quinolone Antimicrobial Start: 08-25-19 End: 12-21-19 take 1 tablet by mouth once daily Levofloxacin 500 MG tablet Discontinued 500 mg PO DAILY August 24, 2016 12:00am December 20, 2017 4:41pm metFORMIN hydrochloride 1000 mg oral tablet (20 sources) Biguanide Start: 07-12-19 End: 06-16-19 take 1 tablet by mouth twice daily at mealtime Metformin 1,000 mg tablet Discontinued 1000 mg PO 2 times per day with meals 180 3 October 06, 2023 8:41pm June 16, 2024 2:09pm Start: 07-11-2021 End: 07-11-2021 Metformin 500 mg tablet Discontinued NMA PO July 11, 2021 1:00am July 11, 2021 4:45pm Start: 04-26-2021 End: 07-01-2024 take 2 tablets by mouth twice daily at mealtime metFORMIN (GLUCOPHAGE) 500 mg tablet Indications: Type 2 diabetes mellitus with diabetic neuropathy, without long-term current use of insulin (HCC) Take 2 tablets by mouth two times a day with meals. 360 tablet 3 07/02/2024 Active Start: 08-22-2016 End: 11-02-2020 Metformin 1,000 mg tablet Discontinued 1000 mg PO .bidcm October 13, 2020 8:51am November 02, 2020 2:13pm Comment on above: Take 2 tablets by [facility] twice daily with meals. MULTIPLE VITAMINS-MINERALS (1 source) Start: 7 take 1 tablet by mouth once daily MULTI COMPLETE CAPS One tablet by mouth daily MULTIPLE VITAMINS-MINERALS [id number] Mary Julianna Blake SOFTWARE CLERK MULTIPLE VITAMINS-MINERALS (3 sources) Start: 7 take 1 tablet by mouth once daily MULTI COMPLETE CAPS One tablet by mouth daily MULTIPLE VITAMINS-MINERALS [id number] Mary Julianna Blake SOFTWARE CLERK pantoprazole 40 mg oral granules (8 sources) Proton Pump Inhibitor Start: 7 take 1 tablet by mouth once daily PROTONIX 40 MG PACK One tablet by mouth daily PANTOPRAZOLE SODIUM [id number] Mary Julianna Blake SOFTWARE CLERK Start: 08-29-2016 take 1 tablet by marci once daily PROTONIX 40 MG PACK One tablet by mouth daily PANTOPRAZOLE SODIUM [id number] Mary Blake NANETTE Start: 08-22-2016 End: 10-13-2020 take 1 tablet by mouth once daily Pantoprazole 40 MG tablet Discontinued 40 mg PO DAILY August 22, 2016 12:00am October 13, 2020 8:51am pravastatin sodium 10 mg oral tablet (8 sources) HMG-CoA Reductase Inhibitor Start: 08-22-2016 End: 10-13-2020 take 1 tablet by mouth once daily Pravastatin 10 MG tablet Discontinued 10 mg PO DAILY August 22, 2016 12:00am October 13, 2020 8:53am predniSONE 10 mg oral tablet (8 sources) Start: 10-31-2022 End: 11-20-2022 take 4 tablets by mouth once daily Prednisone 10 mg tablet Discontinued 10 mg PO DAILY 20 0 October 31, 2022 3:06pm November 20, 2022 1:31pm Take 4 tabs by mouth daily for 5 days Semaglutide (4 sources) Start: 06-10-2021 End: 10-26-2021 Semaglutide (Ozempic) 1 mg/dose (4 mg/3 mL) pen injector Discontinued 1 mg SC EVERY WEEK 9 June 10, 2021 1:00am October 26, 2021 8:06am Start: 06-10-2021 End: 10-26-2021 Semaglutide (Ozempic) 1 mg/d ose (4 mg/3 mL) pen injector Discontinued 1 mg SC EVERY WEEK June 10, 2021 1:00am October 26, 2021 8:06am Start: 06-10-2021 End: 10-26-2021 Semaglutide (Ozempic) 1 mg/d ose (4 mg/3 mL) pen injector Discontinued 1 MG SC EVERY WEEK June 10, 2021 1:00am October 26, 2021 8:06am Tirzepatide (Mounjaro) 2.5 mg/0.5 mL pen injector (6 sources) Start: 08-25-2024 End: 11-05-2024 Tirzepatide (Mounjaro) 2.5 mg/0.5 mL pen injector Discontinued 2.5 mg SC EVERY WEEK 2 3 August 25, 2024 2:20pm November 05, 2024 2:57pm Diabetes mellitus Type 2 diabetes mellitus with hyperglycemia Start: 08-25-2024 Tirzepatide (M ounjaro) 2.5 mg/0.5 mL pen injector Active 2.5 mg SC EVERY WEEK 2 August 25, 2024 2:20pm Start: 08-15-2024 End: 08-25-2024 Tirzepatide (Mounjaro) 2.5 m g/0.5 mL pen injector Discontinued 2.5 mg SC EVERY WEEK August 15, 2024 12:00am August 25, 2024 2:20pm for 4 weeks Problems Active Problems Problem Classification Problem Date Documented Date Episodic/Chronic Acute bronchitis (4 sources) Acute bronchitis; Translations: [Acute bronchitis, unspecified] 12-20-2017 Episodic Asthma (9 sources) Asthma; Translations: [Unspecified asthma, uncomplicated] 10-13-2020 Chronic Deficiency and other anemia (1 source) Anemia, unspecified; Translations: [Anemia, unspecified] Onset: 11-05-2024 Episodic Diabetes mellitus with complications (20 sources) Type 2 diabetes mellitus; Translations: [Type 2 diabetes mellitus with diabetic neuropathy, unspecified] Onset: 12-26-2018 Chronic Diabetes mellitus without complication (11 sources) Diabetes mellitus; Translations: [Type 2 diabetes mellitus without complications] Onset: 11-05-2024 07-11-2021 Chronic Disorders of lipid metabolism (20 sources) Hyperlipidemia; Translations: [Hyperlipidemia, unspecified] Onset: 04-23-2012 Chronic Esophageal disorders (20 sources) Gastroesophageal reflux disease; Translations: [Gastro-esophageal reflux disease without esophagitis] Onset: 07-11-2005 07-11-2005 Chronic Essential hypertension (20 sources) Essential hypertension; Translations: [Essential (primary) hypertension] Onset: 08-05-2015 Chronic Hyperplasia of prostate (20 sources) Benign prostatic hypertrophy with outflow obstruction; Translations: [Benign prostatic hyperplasia with lower urinary tract symptoms] Onset: 11-11-2013 11-11-2013 Chronic Immunizations and screening for infectious disease (6 sources) Exposure to Mycobacterium tuberculosis; Translations: [Needs influenza immunization] Onset: 12-18-2016 12-18-2016 Episodic Influenza (3 sources) Influenza due to Influenza A virus; Translations: [Influenza due to other identified influenza virus with other respiratory manifestations] 06-17-2024 Episodic Malaise and fatigue (1 source) Chronic fatigue, unspecified; Translations: [Chronic fatigue, unspecified] Onset: 11-05-2024 Chronic Malaise and fatigue (4 sources) Fatigue; Translations: [Other fatigue] Onset: 11-05-2024 12-24-2023 Episodic Nutritional deficiencies (1 source) Vitamin D deficiency, unspecified; Translations: [Vitamin D deficiency, unspecified] Onset: 11-05-2024 Chronic Open wounds of extremities (1 source) Laceration of left thumb; Translations: [Laceration without foreign body of left thumb without damage to nail, initial encounter] 01-26-2024 Episodic Other aftercare (1 source) Removal of sutures done; Translations: [Encounter for removal of sutures] 02-04-2024 Episodic Other connective tissue disease (1 source) Patellar tendinitis, left knee; Translations: [Patellar tendonitis of left knee] Onset: 09-26-2024 Episodic Other lower respiratory disease (4 sources) Dyspnea on exertion; Translations: [Other forms of dyspnea] 12-20-2017 Episodic Other lower respiratory disease (1 source) Cough; Translations: [Acute cough] 10-16-2022 Episodic Other lower respiratory disease (7 sources) Hypoxemia; Translations: [Hypoxemia] 08-15-2024 Episodic Other lower respiratory disease (2 sources) Hypoxemia; Translations: [Hypoxemia] Onset: 09-25-2024 Episodic Other male genital disorders (2 sources) Male erectile dysfunction, unspecified; Translations: [Impotence of organic origin] Onset: 09-26-2024 09-26-2024 Chronic Other nervous system disorders (7 sources) Neuropathy; Translations: [Polyneuropathy, unspecified] 10-13-2020 Chronic Other nervous system disorders (1 source) Other chronic pain; Translations: [Chronic hip pain, right] Onset: 09-26-2024 Chronic Other nervous system disorders (1 source) Polyneuropathy, unspecified; Translations: [Polyneuropathy, unspecified] Onset: 11-05-2024 Chronic Other non-traumatic joint disorders (1 source) Pain in right hip; Translations: [Chronic hip pain, right] Onset: 09-26-2024 Episodic Other nutritional; endocrine; and metabolic disorders (15 sources) Obese class I; Translations: [Obesity, unspecified] Onset: 10-01-2020 10-01-2020 Chronic Other nutritional; endocrine; and metabolic disorders (20 sources) Obese class II; Translations: [Obesity, unspecified] Onset: 12-25-2017 Resolved: 10-01-2020 Chronic Other nutritional; endocrine; and metabolic disorders (16 sources) Obesity; Translations: [Obesity, unspecified] Onset: 01-07-2008 Resolved: 12-25-2017 07-11-2021 Chronic Other nutritional; endocrine; and metabolic disorders (2 sources) Obesity, unspecified; Translations: [Obesity, unspecified] 08-21-2022 Chronic Other nutritional; endocrine; and metabolic disorders (1 source) Other obesity due to excess calories; Translations: [Other obesity due to excess calories] Onset: 11-05-2024 Chronic Other nutritional; endocrine; and metabolic disorders (1 source) Body mass index (BMI) 34.0-34.9, adult; Translations: [Body mass index [BMI] 34.0-34.9, adult] Onset: 11-05-2024 Chronic Other nutritional; endocrine; and metabolic disorders (3 sources) H/O: diabetes mellitus; Translations: [Personal history of other endocrine, nutritional and metabolic disease] 06-17-2024 Episodic Other screening for suspected conditions (not mental disorders or infectious disease) (1 source) Patient encounter status; Translations: [Encounter for screening for malignant neoplasm of prostate] Episodic Other upper respiratory disease (1 source) Chronic rhinitis; Translations: [Unspecified sinusitis (chronic)] Chronic Other upper respiratory infections (1 source) Chronic sinusitis, unspecified; Translations: [Unspecified sinusitis (chronic)] 10-31-2022 Chronic Residual codes; unclassified (20 sources) Obstructive sleep apnea syndrome; Translations: [Obstructive sleep apnea (adult) (pediatric)] Onset: 12-25-2017 07-01-2018 Chronic Residual codes; unclassified (3 sources) Obstructive sleep apnea (adult) (pediatric); Translations: [LONI on CPAP] Onset: 06-30-2024 Chronic Screening and history of mental health and substance abuse codes (2 sources) Encounter for screening for depression; Translations: [Encounter for screening examination for other mental health and behavioral disorders] Onset: 09-26-2024 Episodic Septicemia (except in labor) (4 sources) Sepsis; Translations: [Sepsis, unspecified organism] 12-20-2017 Episodic Viral infection (3 sources) Viral disease; Translations: [Viral infection, unspecified] 06-17-2024 Episodic Past or Other Problems Problem Classification Problem Date Documented Da te Episodic/Chronic Mood disorders (8 sources) Depressive disorder; Translations: [Other specified depressive episodes] Onset: 07-11-2005 Resolved: 10-30-2014 10-30-2014 Chronic Other and unspecified benign neoplasm (15 sources) Tubular adenoma of colon; Translations: [Benign neoplasm of colon, unspecified] Onset: 11-19-2014 01-03-2021 Episodic Other diseases of kidney and ureters (1 source) Other obstructive and reflux uropathy; Translations: [BPH with obstruction/lower urinary tract symptoms] Onset: 11-11-2013 Episodic Other gastrointestinal disorders (8 sources) Diarrhea; Translations: [Diarrhea, unspecified] Onset: 01-07-2008 Resolved: 07-26-2009 07-26-2009 Episodic Other inflammatory condition of skin (15 sources) Intertrigo; Translations: [Erythema intertrigo] Onset: 03-10-2022 Episodic Other lower respiratory disease (4 sources) Dyspnea; Translations: [Shortness of breath] Onset: 08-29-2016 08-29-2016 Episodic Other lower respiratory disease (1 source) Shortness of breath; Translations: [Shortness of breath] Onset: 06-26-2024 Episodic Other nutritional; endocrine; and metabolic disorders (8 sources) Metabolic syndrome X; Translations: [Dysmetabolic syndrome] Onset: 11-12-2009 Resolved: 10-19-2011 10-19-2011 Chronic Residual codes; unclassified (4 sources) Hypersomnia; Translations: [Hypersomnia, unspecified] Onset: 08-29-2016 08-29-2016 Episodic Results Test Name Value Interpretation Reference Range Facility Pulmonary Visit Reporton Pulmonary Visit Report [facility] [place] [address] [place] [address] OFFICE VISIT Date of Service: 11/28/24 MR#: [id number] Acct: [id number] Name: LELE PASTRANA Rep #: [id number] : 1960 Provider: Luanne Bar NP Age/Sex: 64/M Location: [facility] [place].[facility] Status: Signed Assessment and Plan Assessment and Plan (1) LONI (obstructive sleep apnea): Status: Chronic Plan: Obstructive sleep apnea is well-controlled with use of CPAP at 5 cm. The patient is receiving significant benefit from using the device. I have recommended that a nocturnal oximetry be performed on CPAP 5 cm prior to next follow-up in 3 to 4 months. The patient should continue to use a nasal style mask. There is no indication for a titration study at this time. Compliance download on follow-up. (2) Asthma: Status: Chronic Qualifiers: Asthma complication type: uncomplicated Asthma persistence: unspecified Asthma severity: unspecified severity Qualified Code(s): J45.909 - Unspecified asthma, uncomplicated Plan: There is no evidence to suggest asthma on his recent PFT. He has not had an albuterol inhaler for 15-17 years. He is to notify this practice if he has worsening respiratory symptoms. (3) Hypoxemia: Status: Acute Plan: I strongly suspect that the nocturnal hypoxemia identified on sleep testing was due to uncontrolled sleep apnea because the recent PFT did not show gas transfer abnormality or hypoxemia on the 6- minute walk test. I have recommended that a nocturnal oximetry be performed on PAP therapy to ensure that the nocturnal hypoxemia is controlled with PAP therapy. The patient is agreeable to this plan. Orders: Orders OutPt Pulse Ox/Cont Overnight Today G47.33 - Obstructive sleep apnea (adult) (pediatric) Plan Details Follow Up: 4 to 6 months (LMR) HPI HPI Comments Details: This 64 year old male patient presents to the office today to review recent testing. He is ambulatory and currently on room air. Since last follow-up he has not had recent respiratory illness requiring oral prednisone or antibiotics. He has not been seen in the hospital or require ER or urgent care. He has had no recent exacerbation of his asthma. He is not currently on inhaled therapy. He denies shortness of breath. He is denying cough and sputum production. He denies any wheezing, chest tightness, chest pain or palpitations. He denies fever, chills or body aches. He is a lifetime non-smoker. He has noticed a difference in the quality of his sleep since using the pap device. He is sleeping through the night better. He is not awakening as often. He does feel rested on awakening. He is not napping. He is not struggling with claustrophobia as he was anticipating because he is using a nasal style mask. He is not experiencing oral dryness. He reports compliant use of PAP therapy. He does not have mask leak. Pulmonary function test completed on November 17, 2022. Impression is mild restrictive ventilatory impairment with preserved diffusing capacity. PSG from May 19 2024 showed moderate obstructive sleep apnea with hypoxemia identified and average saturation at 87% during sleep. Documentation reviewed with patient today includes: Compliance download from October 25, 2024 shows use of CPAP 5 cm at 100% compliance, 8 hours and 26 minutes nightly average. There is minimal air leak identified. AHI is 1.1. PFT from September 09, 2024 is grossly normal. 6-minute walk test from September 16, 2024 shows no significant exertional oxygen desaturation. There is no indication for the use of supplemental oxygen at this time. Intake Vital Signs 09/16/24 08:17 11/28/24 12:22 Height 5 ft 9 in 5 ft 9 in Weight: 220 lb BMI 32.5 BP 128/76 H Blood Pressure Location Lt brachial Position Sitting Respiration 16 Pulse 76 Pulse Source Monitor Temp 97.3 F L Temperature Source Temporal Artery Pulse Oximetry (%) 96 Oxygen Delivery Method room air Intake Visit Reasons: 3 M FU Chief Complaint: f/u diabetes Supervisor Brake Repair Required: No DME Vendor: Ann Accompanied by: Self Is patient in pain?: No Allergies No Known Allergies Allergy (Verified 11/28/24 14:44) Medications ???Medication ???Instructions ???Recorded ???Confirmed ???Type multivitamin (Multiple Vitamins 1 ea PO DAILY 08/22/16 11/28/24 giddy story tablet) atorvastatin 10 mg tablet 10 mg PO QHS 10/13/20 11/28/24 His tory tamsulosin 0.4 mg capsule 0.4 mg PO QHS 10/13/20 11/28/24 Hi story pen needle, diabetic 32 gauge x #100 ea 10/26/21 11/28/24 Rx (BD Ultra-Fine Wendy Pen Needle) omeprazole magnesium 20 mg 20 mg PO DAILY 10/31/22 11/28/24 H istory tablet,delayed release (Prilosec OTC) cyanocobalamin (vitamin B-12) 1,000 mcg PO DAILY 12/24/2311/28/ (more content not included)... Normal [facility] Endocrinology Visit Reporton 11-05-2024 Endocrinology Visit Report [facility] [address] [place] [address] OFFICE VISIT Date of Service: 11/05/24 MR#: [id number] Acct: [id number] Name: LELE PASTRANA Rep #: [id number] : 1960 Provider: BEN power Age/Sex: 64/M [place] [facility] [place]: Signed Intake Vital Signs 08/06/24 14:49 09/16/24 08:17 11/05/24 14:37 Height 5 ft 9 in 5 ft 9 in 5 ft 9 in Weight: 221 lb 2 oz BMI 32.6 BP 123/78 H Blood Pressure Location Rt brachial Position Sitting Pulse 85 Pulse Source Monitor Pulse Oximetry (%) 94 Oxygen Delivery Method room air Intake Visit Reasons: 3 M FU, RS 07/31 Chief Complaint: f/u diabetes Is patient in pain?: No Allergies No Known Allergies Allergy (Verified 11/05/24 14:41) Medications ???Medication ???Instructions ???Recorded ???Confirmed ???Type multivitamin (Multiple Vitamins 1 ea PO DAILY 08/22/16 11/05/24 Hi story tablet) atorvastatin 10 mg tablet 10 mg PO QHS 10/13/20 11/05/24 His tory tamsulosin 0.4 mg capsule 0.4 mg PO QHS 10/13/20 11/05/24 Hi story pen needle, diabetic 32 gauge x #100 ea 10/26/21 11/05/24 Rx (BD Ultra-Fine Wendy Pen Needle) omeprazole magnesium 20 mg 20 mg PO DAILY 10/31/22 11/05/24 H istory tablet,delayed release (Prilosec OTC) cyanocobalamin (vitamin B-12) 1,000 mcg PO DAILY 12/24/23 History 1,000 mcg tablet melatonin 5 mg capsule mg PO HS PRN 05/09/24 11/05/24 His tory metformin 1,000 mg tablet 1,000 mg PO BIDWMEAL #180 tabs 02/2811/05/24 Rx dapagliflozin propanediol 10 mg 10 mg PO QDAY #90 tabs 10/29/24 Rx tablet (Farxiga) sildenafil 100 mg tablet 50 - 100 mg PO QDAY PRN 11/05/24 0 11/05/24 History tirzepatide 5 mg/0.5 mL 5 mg (0.5 mL) subcut QWEEK #2 mL 0 11/05/24 11/05/24 Rx subcutaneous pen injector (Mounjaro) Have you fallen in the past year?: No PFSH Medical History Obesity Polyneuropathy due to type 2 diabetes mellitus Diabetes GERD (gastroesophageal reflux disease) Neuropathy Asthma Acute bronchitis Sepsis Hyperlipidemia Hypertension Type 2 diabetes mellitus Family History Father CVA (cerebral vascular accident) Diabetes Heart disease Myocardial infarction, Onset Age: 64 Mother Diabetes Grandfather Diabetes Other High cholesterol Hypertension Skin cancer Social History Smoking Status: Never smoker second hand exposure: No alcohol intake: never substance use type: does not use caffeine: No what type of physical activity do you participate in: none HPI HPI Chief Complaint: f/u diabetes Details: LELE PASTRANA, is a 64 M who presents to the office today for evaluation and management of diabetes. A1C today is 7.6%, essentially unchanged from 08/06/24. Weight is stable. Currently taking Farixga 10 mg once daily, metformin 1 gm BID with food, and Mounjaro 2.5 mg qweek- tolerating well. He admits that his diet is high in processed carbs, he does not enjoy eating vegetables. BP is controlled. ACEI was recently discontinued d/t postural hypotension. He reports symptoms have resolved since discontinuing medication. He takes a daily statin. He has tightly controlled cholesterol. He recently had labs completely with PCP. Denies any acute concerns. ROS Const Constitutional: No fatigue or weight change ENT ENT: No dizziness/vertigo Cardio Cardiology: No chest pain at rest, chest pain with exertion, shortness of breath or palpitations Skin Skin: No wounds Endo Endocrine: No fatigue or weight change Exam Const General: cooperative, healthy appearing, comfortable and no acute distress Nutritional Appearance: obese Orientation: alert, awake and oriented x3 HENMT Head: normal to inspection Ears: hearing grossly normal bilaterally Nose: external nose normal Face and sinus: normal facial exam Eyes General: appearance normal, both eyes and all related structures Alignment and Position: alignment normal Sclera: sclerae normal Neck Neck: normal visual inspection Chest Chest palpation inspection: normal inspection of the chest Resp Effort Inspection: normal respiratory effort, able to speak in complete sentences, symmetric chest movement, normal respiratory pattern, no audible wheezes and no cough Auscultation: Bilateral: Clear to Auscultation Cardio Rate: regular rate Rhythm: regular rhythm GI Inspection: obesity Musc Cervical Spine: normal cervical lordosis Thoracic/Lumbar Spine: thoracic and lumbar spine normal to inspection Skin General: no rashes or lesions noted Lesions: no le (more content not included)... Normal [facility] - Hematology and Cell countsOrdered By: Gladys Wick on 11-05-2024 HbA1c (Bld) [Mass fraction] 7.6 % High 4.2-6.3 [facility] CNOVon 09-26-2024 CNOV Office Visit (INTMWS) LELE PASTRANA ([id number]) 1960 M Date Time Provider Department 09/26/24 2:20 PM LES VIRAMONTES INTMWS During your visit today, we recorded the following information about you: Pulse Respiration Blood pressure Weight 74/minute 14/minute 124/80 99.9 kg Height 1.73 m Les Viramontes MD 09/26/2024 3:45 PM Signed Lele Barrios Zeina is a 64 year old male here for a Medicare wellness visit. Medicare Health Risk Assessment General Health Good Exercise: Minutes/Day Patient declined Exercise: Days/Week Patient declined Alcohol: Daily Use Never Alcohol: Drinks/Day Patient declined Alcohol: 6 or more drinks Patient declined Feel off balance No Concerns: Teeth/Dentures No Concerns: Sexual function Yes x 3 years Troubled by feelings None of the above Frequency: Eating healthy diet Decline ADLs requiring help None of the above Safety precautions in home/vehicle Yes Smoke, vape, chews tobacco No Difficulty hearing No Difficulty seeing No Current Providers Specialists: I have reviewed specialist-related care of the patient in the medical record. Current care team: Patient Care Team: Les Viramontes MD as PCP - General Marisa Arias APRN.BUILDING INSPECTION ENGINEER as Histologist Technologist (Internal Medicine) Outside specialists seen: Aldair Haynes MD; [facility]. Rashard Leon MD, Ophthalmology. Luanne Faust APRN, CNP, [facility]. Medical/Family history review Reviewed and updated problem list, medical/surgical/fam sharon/social history, medications, and allergies. Opioid use review Opioid Medications (last 90 days) No data to display Anxiety/Depression screening PHQ-2 Score: 0 (Lower risk for depression) GIAN-7 Score: 1 (Minimal Anxiety) Recommendation: no further intervention at this time Cognitive screening Mini Cog Score: 5 Cognitive screening reviewed and No further action needed (score 3-5). Functional Observation Was the patient's Timed Up AND Go test unsteady or >= 12 seconds? No Advance Care Planning Surrogate decision maker documented and/or advance directives scanned in chart Measurements BP 124/80 Pulse 74 Resp 14 Ht 173 cm (5' 8.11) Wt 99.9 kg (220 lb 3.8 oz) SpO2 98% BMI 33.38 kg/m? Vision Screening: Follows with optometry/ophthalmol ogy Right: 20/20 Left: 20/ 20 Both: 20/15 Assessment/Plan Medicare annual wellness visit, initial (Z00.00) - Counseled on healthy diet and regular exercise - Fall avoidance information provided - Personalized prevention plan provided - Discussed need for and benefit of weight loss. BMI 33.38 kg/(m2) Les Viramontes MD 09/26/2024 3:45 PM Signed This note was created using NoteWriter. Subjective Lele Pastrana is a 64 year old male. His hypertension was controlled off lisinopril. Diabetes was improving. Lipids were controlled. He had right hip pain for 4-5 months after prolonged sitting, improving with activity. He had remote soccer right hip injury. He also developed left knee pain for 3 months after jumping on a bed and noticing a pop. No limping and no swelling was noted. Pain was below the knee cap precipitated by certain twisting movement. He had not needed medication for his pain. He was now on CPAP for obstructive sleep apnea. He complained of erectile dysfunction for a few years, not previously addressed. He might travel to [place] 10[place]12-10/19/24 at 9000 feet. He will call if travel advise needed. Review of Systems Constitutional: Negative for fatigue and unexpected weight change. Respiratory: Negative for cough and shortness of breath. Cardiovascular: Negative for chest pain, palpitations and leg swelling. Gastrointestinal: Negative for abdominal pain, constipation and diarrhea. Genitourinary: Negative for difficulty urinating and dysuria. Musculoskeletal: Positive for arthralgias. Neurological: Negative for dizziness and headaches. ACTIVE PROBLEM LIST Esophageal Reflux Type 2 Diabetes Mellitus With Diabetic Neuropathy, Without Long-Term Current Use of Insulin ([facility]) Hyperlipidemia With Target Ldl Less Than 100 Bph With Obstruction/Lower Urinary Tract Symptoms Essential Hypertension Loni On Cpap Obesity, Class I, Bmi 30-34.9 Tubular Adenoma of Colon Obesity, Class II, Bmi 35-39.9 Erythema Intertrigo Erectile Dysfunction Social History Tobacco Use Smoking status: Never Smokeless tobacco: Never Vaping Use Vaping status: Never Used Substance Use Topics Alcohol use: No Drug use: No Current Outpatient Medications Medication Sig MOUNJARO 2.5 mg/0.5 mL pen injector Inject 2.5 mg subcutaneously one time a week. Per endo dapagliflozin propanediol (FARXIGA) 10 mg tablet Take 1 tablet by mouth once daily. Per endo atorvastatin (LIPITOR) 10 mg tablet Take 1 tablet by mouth daily at bedtime. tamsulosin (FLOMAX) 0.4 mg Take 1 caps (more content not included)... Normal [facility] ALBUMIN/CREATININE RATIO, UR INEon 09-22-2024 Albumin DL <= 20 mg/L (U) [Mass/Vol] mg/dL Normal [facility] Comment on above: Order Comment: Speci men Type: URINE SPECIMEN Ordering Facility: [facility] Address: [address] [place] [address] Performed By: #### U ACR #### [facility] CLIA [id number] [address] [place] [address] [place] Albumin/Creatinine (U) [Mass ratio] <7 Normal <30 [facility] Comment on above: Order Comment: Speci men Type: URINE SPECIMEN Ordering Facility: [facility] Address: [address] [place] [address] Result Comment: Adul t Male and Female Nephrotic Criteria: <30 mg/g is considered normal to mildly increased 30-300 mg/g is considered moderately increased >300 mg/g is considered severely increased KDIGO. (2013). KDIGO 2012 Clinical Practice Guideline for the Evaluation and Management of Chronic Kidney Disease. Official Journal of the International Society of Nephrology, 3(1), 1-150. Performed By: #### U ACR #### [facility] CLIA [id number] [address] [place] [address] [place] Creatinine (U) [Mass/Vol] 168.0 mg/dL Normal 20.0-300.0 [facility] Comment on above: Order Comment: Speci men Type: URINE SPECIMEN Ordering Facility: [facility] Address: [address] [place] [address] Performed By: #### U ACR #### [facility] CLIA [id number] [address] [place] [address] [place] Basic metabolic 2000 panelon 09-22-2024 Anion gap [Moles/Vol] 13 mmol/L Normal 8-15 [facility] Comment on above: Order Comment: Speci men Type: BLOOD SPECIMEN Ordering Facility: [facility] Address: [address] [place] [address] Performed By: #### 2 4331-1, 24268-1 #### [facility] CLIA [id number] [address] [place] [address] [place] Calcium [Mass/Vol] 9.0 mg/dL Normal 8.5-10.[address] [facility] Comment on above: Order Comment: Speci men Type: BLOOD SPECIMEN Ordering Facility: [facility] Address: [address] [place] [address] Performed By: #### 2 4331-1, 03246-0 #### [facility] CLIA [id number] [address] [place] [address] [place] Chloride [Moles/Vol] 101 mmol/L Normal 98-107 [facility] Comment on above: Order Comment: Speci men Type: BLOOD SPECIMEN Ordering Facility: [facility] Address: [address] [place] [address] Performed By: #### 2 4331-1, 14031-2 #### [facility] CLIA [id number] [address] [place] [address] [place] CO2 [Moles/Vol] 26 mmol/L Normal 22-30 [facility] Comment on above: Order Comment: Speci men Type: BLOOD SPECIMEN Ordering Facility: [facility] Address: [address] [place] [address] Performed By: #### 2 4331-1, 86305-1 #### [facility] CLIA [id number] [address] [place] [address] [place] Creatinine [Mass/Vol] 0.86 mg/dL Normal 0.73-1.22 [facility] Comment on above: Order Comment: Speci men Type: BLOOD SPECIMEN Ordering Facility: [facility] Address: [address] [place] [address] Performed By: #### 2 4331-1, 46215-5 #### [facility] CLIA [id number] [address] [place] [address] [place] Creatinine and Glomerular filtration rate.predicted panel (S/P/Bld) 95 mL/min/1.73m??? Normal >=60 [facility] Comment on above: Order Comment: Speci men Type: BLOOD SPECIMEN Ordering Facility: [facility] Address: [address] [place] [address] Result Comment: Karen mated Glomerular Filtration Rate (eGFR) is calculated using the 2020 CKD-EPI creatinine equation. This equation utilizes serum creatinine, sex, and age as parameters. The creatinine assay has traceable calibration to isotope dilution-mass spectrometry. Refer to KDIGO guidelines for clinical interpretation. In patients with unstable renal function, e.g. those with acute kidney injury, the eGFR may not accurately reflect actual GFR. Performed By: #### 2 4331-1, 64166-6 #### [facility] CLIA [id number] [address] [place] [address] [place] Glucose [Mass/Vol] 141 mg/dL High 74-[address] [facility] Comment on above: Order Comment: Neel mtz Type: BLOOD SPECIMEN Ordering Facility: [facility] Address: [address] [place] [address] Result Comment: The [place] Diabetes Association (ADA) provides guidance for cutoff values for fasting glucose and random glucose. The ADA defines fasting as no caloric intake for at least 8 hours. Fasting plasma glucose results between 100 to 125 mg/dL indicate increased risk for diabetes (prediabetes). Fasting plasma glucose results greater than or equal to 126 mg/dL meet the criteria for diagnosis of diabetes. In the absence of unequivocal hyperglycemia, results should be confirmed by repeat testing. In a patient with classic symptoms of hyperglycemia or hyperglycemic crisis, random plasma glucose results greater than or equal to 200 mg/dL meet the criteria for diagnosis of diabetes. Reference: Standards of Medical Care in Diabetes 2016, [place] Diabetes Association. Diabetes Care. 2016.39(Suppl 1). Performed By: #### 2 4331-, 31147-8 #### [facility] CLIA [id number] [address] [place] [address] [place] Potassium [Moles/Vol] 4.1 mmol/L Normal 3.7-5.1 [facility] Comment on above: Order Comment: Neel mtz Type: BLOOD SPECIMEN Ordering Facility: [facility] Address: [address] [place] [address] Performed By: #### 2 4331-, 93180-5 #### [facility] CLIA [id number] [address] [place] [address] [place] Sodium [Moles/Vol] 140 mmol/L Normal 136-[address] [facility] Comment on above: Order Comment: Speci men Type: BLOOD SPECIMEN Ordering Facility: [facility] Address: [address] [place] [address] Performed By: #### 2 4331-1, 35014-3 #### [facility] CLIA [id number] [address] [place] [address] [place] Urea nitrogen [Mass/Vol] 10 mg/dL Normal 9-24 [facility] Comment on above: Order Comment: Speci men Type: BLOOD SPECIMEN Ordering Facility: [facility] Address: [address] [place] [address] Performed By: #### 2 4331-1, 50976-6 #### [facility] CLIA [id number] [address] [place] [address] [place] HbA1c (Bld)on 09-22-2024 Average glucose Estimated from glycated hemoglobin (Bld) [Mass/Vol] 166 mg/dL Normal [facility] Comment on above: Order Comment: Speci men Type: BLOOD SPECIMEN Ordering Facility: [facility] Address: [address] [place] [address] Result Comment: eAG: (Estimated average glucose) is a calculated value from HgbA1c and is roofing sales representative of the average blood glucose level in the last 2-3 month period. Performed By: #### 5 5454-3 #### [facility] CLIA [id number] [address] [place] [address] [place] HbA1c (Bld) [Mass fraction] 7.4 % High 4.3-5.6 [facility] Comment on above: Order Comment: Speci men Type: BLOOD SPECIMEN Ordering Facility: [facility] Address: [address] [place] [address] Result Comment: [place] Diabetes Association guidelines indicate that patients with HgbA1c in the range 5.7-6.4% are at increased risk for development of diabetes, and intervention by lifestyle modification may be beneficial. HgbA1c greater or equal to 6.5% is considered diagnostic of diabetes. Performed By: #### 5 5454-3 #### [facility] CLIA [id number] [address] [place] [address] [place] Lipid 1996 panelon 5 Cholesterol [Mass/Vol] 114 mg/dL Normal <200 [facility] Comment on above: Order Comment: Neel mtz Type: BLOOD SPECIMEN Ordering Facility: [facility] Address: [address] [place] [address] Result Comment: <200 mg/dL, Desirable 200-239 mg/dL, Borderline high >239 mg/dL, High Performed By: #### 2 4331-1, 96973-1 #### [facility] CLIA [id number] [address] [place] [address] [place] Cholesterol in HDL [Mass/Vol] 44 mg/dL Normal >39 [facility] Comment on above: Order Comment: Neel mtz Type: BLOOD SPECIMEN Ordering Facility: [facility] Address: [address] [place] [address] Result Comment: 40-5 9 mg/dL, Acceptable >59 mg/dL, High: Negative risk factor for coronary heart disease <40 mg/dL, Low: Positive risk factor for coronary heart disease Performed By: #### 2 4331-1, 46690-2 #### [facility] CLIA [id number] [address] [place] [address] OF [facility] Cholesterol in LDL [Mass/Vol] 53 mg/dL Normal <100 [facility] Comment on above: Order Comment: Neel mtz Type: BLOOD SPECIMEN Ordering Facility: [facility] Address: [address] [place] [address] Result Comment: <100 mg/dL, Optimal 100-129 mg/dL, Near optimal/above optimal 130-159 mg/dL, Borderline high 160-189 mg/dL, High >189 mg/dL, Very high Secondary prevention optimal LDL Cholesterol levels are recommended to be <70 mg/dL LDL cholesterol is calculated using the Reis-NIH equation. Performed By: #### 2 4331-1, 08458-4 #### [facility] CLIA [id number] [address] [place] [address] [place] Cholesterol in LDL/Cholesterol in HDL [Mass ratio] 1.20 {ratio} Normal <2.54 [facility] Comment on above: Order Comment: Neel mtz Type: BLOOD SPECIMEN Ordering Facility: [facility] Address: [address] [place] [address] Result Comment: Refe rence: 1. National Cholesterol Education Program ATP III Guideline At-A-Glance Quick Desk Reference: National Heart, Lung, and Blood [place]. National Institutes of Health. 2001: NIH Publication No. 01-3305. 2. An International Atherosclerosis Society position paper: global recommendations for the management of dyslipidemia: executive summary, Atherosclerosis. 2014: 232(2):410-413. Performed By: #### 2 4331-1, 32856-6 #### [facility] CLIA [id number] [address] [place] [address] [place] Cholesterol in VLDL [Mass/Vol] 12 mg/dL Normal <30 [facility] Comment on above: Order Comment: Neel mtz Type: BLOOD SPECIMEN Ordering Facility: [facility] Address: [address] [place] [address] Performed By: #### 2 4331-1, 17750-7 #### [facility] CLIA [id number] [facility] [place] [address] [place] Cholesterol non HDL [Mass/Vol] 70 mg/dL Normal <130 [facility] Comment on above: Order Comment: Neel mtz Type: BLOOD SPECIMEN Ordering Facility: [facility] Address: [address] [place] [address] Result Comment: <130 mg/dL, Optimal 130-159 mg/dL, Near optimal/above optimal 160-189 mg/dL, Borderline high 190-219 mg/dL, High >219 mg/dL, Very high Secondary prevention optimal non HDL Cholesterol levels are recommended to be <100 mg/dL Performed By: #### 2 4331-1, 30763-6 #### [facility] CLIA [id number] [address] [place] [address] [place] Cholesterol.total/Choles terol in HDL [Mass ratio] 2.59 {ratio} Normal <5.10 [facility] Comment on above: Order Comment: Speci men Type: BLOOD SPECIMEN Ordering Facility: [facility] Address: [address] [place] [address] Performed By: #### 2 4331-1, 02637-0 #### [facility] CLIA [id number] [address] [place] [address] [place] FASTING TIME 12 hrs Normal [facility] Comment on above: Order Comment: Speci men Type: BLOOD SPECIMEN Ordering Facility: [facility] Address: [address] [place] [address] Performed By: #### 2 4331-1, #### [facility] CLIA [id number] [address] [place] [address] [place] Triglyceride [Mass/Vol] 86 mg/dL Normal <150 [facility] Comment on above: Order Comment: Speci men Type: BLOOD SPECIMEN Ordering Facility: [facility] Address: [address] [place] [address] Result Comment: <150 mg/dL, Normal 150-199 mg/dL, Borderline high 200-499 mg/dL, High >499 mg/dL, Very high Performed By: #### 2 4331-1, 10635-2 #### [facility] CLIA [id number] [address] [place] [address] [place] 6 Minute Walk Teston 09-19- 025 6 Minute Walk Test y [facility] [address] [place] [address] MR#: [id number] Acct: [id number] Name: LELE PASTRANA Rep #: [id number] : 1960 64 From: Lex Dial DO Referring Dr: Luanne Bar NURSING UNIT CLERK-C Status: REG CLI Location: [facility] Date: Sex: M C PSN 6 Minute Walk Test 6 Minute Walk Test 6 Minute Walk Test: 6 Minute Walk Test PSN:6-Minute Walk Test Start: 09/16/24 08:17 Freq: Status: Active Protocol: RESP.6MINW Document 09/16/24 08:17 SFENTON (Rec: 09/16/24 08:19 SFENTON [id number]) 6 Minute Walk Test Date Performed 09/16/24 Time Performed 08:00 Height 5 ft 9 in Weight: 215 lb Weight in Pounds 215.[address]: Luanne Bar Assistive device None used: Pre-test Oxygen Delivery Room Air Method Pulse Ox (%) 96 Pulse Rate (60-100 86 beats/min) Dyspnea Emmy Scale ( 0 0-10) Exertion Emmy Scale 6 (6-20) 1st minute Oxygen Delivery Room Air Method Pulse Ox (%) 95 Pulse Rate (60-100 90 beats/min) 2nd minute Oxygen Delivery Room Air Method Pulse Ox (%) 94 Pulse Rate (60-100 96 beats/min) 3rd minute Oxygen Delivery Room Air Method Pulse Ox (%) 93 Pulse Rate (60-100 98 beats/min) 4th minute Oxygen Delivery Room Air Method Pulse Ox (%) 95 Pulse Rate (60-100 99 beats/min) 5th minute Oxygen Delivery Room Air Method Pulse Ox (%) 94 Pulse Rate (60-100 99 beats/min) 6th minute Oxygen Delivery Room Air Method Pulse Ox (%) 95 Pulse Rate (60-100 99 beats/min) Dyspnea Emmy Scale ( 2 0-10) Exertion Emmy Scale 12 (6-20) Post-test Oxygen Delivery Room Air Method Pulse Ox (%) 96 Pulse Rate (60-100 84 beats/min) Full Laps Walked 23 Partial Lap, Number 2 of Tiles Walked Total Distance 1359 Walked (ft) Interpretation Interpretation: The patient ambulated 1359 feet over the course of 6 minutes beginning on room air without assistive devices. Pretesting oxygen saturation was noted to be 96% on room air. With ambulation, the shawna oxygen saturation was 93%. There was no significant exertional oxygen desaturation. Recommendations Recommendations: There is no indication for the use of supplemental oxygen at this time. 09/19/24 1125 Date Lex Dial DO CC: Date Dictated: 09/19/241124 Date Transcribed: 09/19/241124 Plant Reliability Engineer: Dr. Lex Dial DO Signed Normal [facility] Pulmonary Visit Reporton Pulmonary Visit Report [facility] [place] [address] [place] [address] OFFICE VISIT Date of Service: 08/15/24 MR#: [id number] Acct: [id number] Name: LELE PASTRANA Rep #: [id number] : 1960 Provider: Luanne Bar NP Age/Sex: 63/M Location: [facility] Status: Signed Assessment and Plan Assessment and Plan (1) LONI (obstructive sleep apnea): Status: Chronic Plan: In the past the patient has used an oral appliance but this is left him feeling unrefreshed upon awakening. Based on recent titration study I have recommended that he proceed with CPAP at 5 cm to treat LONI. This pressure may need to be adjusted, patient is aware that if he feels like he needs more air he should notify this practice. I have discussed the correlation between sleep apnea/ nocturnal hypoxemia and comorbid conditions such as A-fib and stroke. The patient is agreeable to proceed with treatment although he is concerned about wearing the mask due to feelings of claustrophobia. I would like for him to work with his vendor closely for mask fit and set up, he has chosen to proceed with [employer]. (2) Asthma: Status: Chronic Qualifiers: Asthma complication type: uncomplicated Asthma persistence: unspecified Asthma severity: unspecified severity Qualified Code(s): J45.909 - Unspecified asthma, uncomplicated Plan: Asthma is not active today. He continues without respiratory symptoms and has not required daily maintenance inhalers. Due to recent influenza A diagnosis and hypoxemia identified on PSG I have recommended that he undergo a PFT and a 6-minute walk test. He has been encouraged to contact the office with any new or worsening symptoms in the meantime. (3) Hypoxemia: Status: Acute Plan: It is likely that the nocturnal hypoxemia is due to uncontrolled sleep apnea. I have however recommended a PFT and a 6-minute walk test. I will be paying close attention to the gas transfer on the PFT and looking for evidence of exertional hypoxemia. Orders: Orders PFT Complete - DLCO, Spirometry b/a bronchodilators, lung volumes 09/09/24 R09.02 - Hypoxemia Simple Pulmonary Exercise Test 09/16/24 R09.02 - Hypoxemia Plan Details Follow Up: 3 Months (LMR) HPI HPI Comments Details: This 63 year old male patient presents to the office today to review recent testing. He is ambulatory and currently on room air. Since last follow-up he had gone to a in May on the and became ill on June 03. He did report to the local ER on June 09 due to concerns for hypoxemia. When he arrived to the hospital he was found to be dehydrated but he did not have hypoxemia present. He was diagnosed with influenza A and was prescribed Tamiflu. He indicates that he coughed until the middle of July. He had a home sleep study from 2016 which showed an AHI of 10.7 and severe desaturations. At that time he did not choose to proceed with treatment for sleep apnea. He instead obtained an [id number] oral appliance and wore this for many years. He reports that he has had worsening daytime hypersomnia although his ESS is 4. He awakens feeling unrefreshed. He has frequent awakenings throughout the night, up to 3 times. Nocturia will occur on occasion. He denies morning headaches and dry mouth. He does utilize melatonin for sleep onset with little benefit. He does snore on occasion. He reports that he has sinus congestion at times. He sleeps in side-lying positioning. He is apprehensive about treatment due to claustrophobia. He stopped using oral appliance in October 2022 due to seasonal allergies. He was not able to continue to use it. He has had no recent exacerbation of his asthma. He is not currently on inhaled therapy. He has not required antibiotics or prednisone for bronchitis or pneumonia. He denies shortness of breath. He is denying cough and sputum production. He denies any wheezing, chest tightness, chest pain or palpitations. He denies fever, chills or body aches. He does have some sinus congestion. He is a lifetime non-smoker. He lived in [place] and had dust from [employer]. He never developed allergies. When he was in high school, he was diagnosised with lung infection. When he had an illness, he could cough for months. He was placed on protonix for 8 years. He is now on prilosec. If he does not take this daily, he will feel acid reflux. He made a trip back to [facility] in [facility]. He was worn out and needed breathing treatments. He had a bacteria bronchitis, August 2016. No diagnosis of asthma as a child. He took inhaled treatments until 2012. Pulmonary function test completed on November 17, 2022. Impression is mild restrictive ventilatory impairment with preserved diffusing capacity. Documentation reviewed with patient today includes: PSG from May 19 2024 showed moderate obstruc (more content not included)... Normal [facility] Endocrinology Visit Reporton 08-06-2024 Endocrinology Visit Report [facility] [address] [place] [address] OFFICE VISIT Date of Service: 08/06/24 MR#: [id number] Acct: [id number] Name: LELE PASTRANA Rep #: [id number] : 1960 Provider: BEN power Age/Sex: 63/M [place] [facility] [place]: Signed Intake Vital Signs 04/28/24 11:32 06/09/24 16:03 08/06/24 14:49 Height 5 ft 9 in 5 ft 9 in 5 ft 9 in Weight: 222 lb BMI 32.8 BP 115/74 Blood Pressure Location Lt brachial Position Sitting Respiration 14 Pulse 80 Pulse Source Monitor Temp 97.3 F L Temp Source Temporal Pulse Oximetry (%) 96 Oxygen Delivery Method room air Intake Visit Reasons: 3 M JIE LOPEZ 07/31 Chief Complaint: f/u diabetes Supervisor Brake Repair Required: No Accompanied by: Self Is patient in pain?: No Allergies No Known Allergies Allergy (Verified 08/06/24 14:50) Medications ???Medication ???Instructions ???Recorded ???Confirmed ???Type multivitamin (Multiple Vitamins 1 ea PO DAILY 08/22/16 08/06/24 Hi story tablet) atorvastatin 10 mg tablet 10 mg PO QHS 10/13/20 08/06/24 His tory tamsulosin 0.4 mg capsule 0.4 mg PO QHS 10/13/20 08/06/24 Hi story pen needle, diabetic 32 gauge x #100 ea 10/26/21 05/09/24 Rx 5/32 (BD Ultra-Fine Wenyd Pen Needle) omeprazole magnesium 20 mg 20 mg PO DAILY 10/31/22 08/06/24 H istory tablet,delayed release (Prilosec OTC) cyanocobalamin (vitamin B-12) 1,000 mcg PO DAILY 12/24/23 History 1,000 mcg tablet dulaglutide 4.5 mg/0.5 mL 4.5 mg (0.5 mL) subcut QWEEK #6 mL 02/04/24 08/06/24 Rx subcutaneous pen injector (TrulicCloudCheckr) dapagliflozin propanediol 10 mg 10 mg PO QDAY #90 tabs 04/09/24 Rx tablet (Farxiga) melatonin 5 mg capsule mg PO HS PRN 05/09/24 08/06/24 His tory metformin 1,000 mg tablet 1,000 mg PO BIDWMEAL #180 tabs 02/2808/06/24 Rx lisinopril 5 mg tablet 2.5 mg PO Q OTHER DAY 08/06/2407/01 History Have you fallen in the past year?: No PFSH Medical History Obesity Polyneuropathy due to type 2 diabetes mellitus Diabetes GERD (gastroesophageal reflux disease) Neuropathy Asthma Acute bronchitis Sepsis Hyperlipidemia Hypertension Type 2 diabetes mellitus Family History Father CVA (cerebral vascular accident) Diabetes Heart disease Myocardial infarction, Onset Age: 64 Mother Diabetes Grandfather Diabetes Other High cholesterol Hypertension Skin cancer Social History Smoking Status: Never smoker second hand exposure: No alcohol intake: never substance use type: does not use caffeine: No what type of physical activity do you participate in: none HPI HPI Chief Complaint: f/u diabetes Details: LELE PASTRANA, is a 63 M who presents to the office today for evaluation and management of diabetes. A1C today is 7.7%, increased slightly from 04/10/24 at 7.6%. He has lost 4 lbs since that time. Currently taking Trulicity 4.5 mg qweek, metformin 1 gm BID with food, and Farixga 10 mg once daily. At his last appt he elected to improve diet vs resuming COFFEY. He tested positive for influenza A in June. BP today is controlled. PCP recently decreased lisinopril 2.5 mg to qod d/t dizziness with position changes. Reduction in frequency has resolved symptoms. He takes a daily statin. Labs are up to date with PCP and unremarkable. He has an appt with pulmonology coming up to discuss results of sleep study and potentially moving forward with CPAP. Denies any acute concerns. ROS Const Constitutional: Positive for fatigue (chronic) and weight change (Gain) Eyes Eyes: No change in vision ENT ENT: No dizziness/vertigo Cardio Cardiology: No chest pain at rest, chest pain with exertion, shortness of breath or palpitations Skin Skin: No wounds Endo Endocrine: Positive for fatigue (chronic) and weight change (Gain) Exam Const General: cooperative, healthy appearing, comfortable and no acute distress Nutritional Appearance: obese Orientation: alert, awake and oriented x3 HENMT Head: normal to inspection Ears: hearing grossly normal bilaterally Nose: external nose normal Face and sinus: normal facial exam Eyes General: appearance normal, both eyes and all related structures Alignment and Position: alignment normal Sclera: sclerae normal Neck Neck: normal visual inspection Chest Chest palpation inspection: normal inspection of the chest Resp Effort Inspection: normal respiratory effort, able to speak in complete sentences, symmetric chest movement, normal respiratory pattern, no audible wheezes and no cough (more content not included)... Normal [facility] - Hematology and Cell countsOrdered By: Gladys Wick on 08-06-2024 HbA1c (Bld) [Mass fraction] 7.7 % High 4.2-6.3 [facility] Absolute lymphocyte countOrd ered By: Ed Montoya on 06-09-2024 Lymphocytes Auto (Unsp spec) [#/Vol] 2.85 10*3/uL 0.83-4.51 [facility] Absolute neutrophil countOrd ered By: Ed Le on 06-09-2024 Neutrophils (Bld) [#/Vol] 2.3 10*3/uL 2.0-7.7 [facility] Automated lymphocyte count a s percentage of total leukocytesOrdered By: Ed Lindsay on 06-09-2024 Lymphocytes/100 WBC Auto (Unsp spec) 48.4 % High 19-41 [facility] Basic Metabolic Profile (BMP )on 06-09-2024 BUN/CRE 15.2 RATIO Normal 10-20 [facility] Comment on above: Performed By: #### M 100.678 #### [facility] [address] [place], [address] CA,Total 8.9 mg/dL Normal 8.5-10.1 [facility] Comment on above: Performed By: #### M 100.678 #### [facility] [address] [place], [address] Chloride [Moles/Vol] 105 mmol/L Normal 98-107 [facility] Comment on above: Performed By: #### M 100.678 #### [facility] [address] [place], [address] CO2 [Moles/Vol] 24.0 mmol/L Normal 21.0-32.0 [facility] Comment on above: Performed By: #### M 100.678 #### [facility] [address] [place], [address] Creatinine [Mass/Vol] 0.85 mg/dL Normal 0.70-1.30 [facility] Comment on above: Result Comment: The validity of the calculated GFR GFRAA in patients over 70 years has not been determined. Clinical correlation is essential. Performed By: #### M 100.678 #### [facility] [address], [address] ECRCL 98.68 ml/min Normal [facility] Comment on above: Performed By: #### M 100.678 #### [facility] [address] [place], [address] EST GFR - AA 116 mL/min Normal >60 [facility] Comment on above: Result Comment: Afri can [place] GFR Calc Performed By: #### M 100.678 #### [facility] [address] [place], [address] GAP 8 Normal 5-15 [facility] Comment on above: Performed By: #### M 100.678 #### [facility] [address], [address] GFR/1.73 sq M.predicted among non-blacks MDRD (S/P/Bld) [Vol rate/Area] 96 mL/min/{1.73_m2} Normal >60 [facility] Comment on above: Result Comment: Non- GFR Calc Performed By: #### M 100.678 #### [facility] [address], [address] Glucose [Mass/Vol] 132 mg/dL High 74-106 [facility] Comment on above: Result Comment: Fast ing Glucose result greater than or equal to 126 mg/dL suggests DIABETES MELLITUS per A.D.A. criteria. Performed By: #### M 100.678 #### [facility] [address] [place], [address] Potassium [Moles/Vol] 4.1 mmol/L Normal 3.5-5.1 [facility] Comment on above: Performed By: #### M 100.678 #### [facility] [address], [address] Sodium [Moles/Vol] 137 mmol/L Normal 136-145 [facility] Comment on above: Performed By: #### M 100.678 #### [facility] [address] [place], [address] Urea nitrogen [Mass/Vol] 13 mg/dL Normal 7-18 [facility] Comment on above: Performed By: #### M 100.678 #### [facility] [address] [place], [address] Basophil percentageOrdered B y: Ed Montoya on 06-09-2024 Basophils/100 WBC (Bld) 0.2 % 0-1 [facility] Blood urea nitrogen (BUN)/cr eatinine ratioOrdered By: Ed Montoya on 06-09-2024 Urea nitrogen/Creatinine [Mass ratio] 15.2 mg/mg 10-20 [facility] CBC W/Diff, Automatedon -2024 Absolute Lymph 2.85 X10 3/uL Normal 0.83-4.51 [facility] Comment on above: Performed By: #### M 100.678 #### [facility] [address] [place], [address] Absolute Neut 2.3 X10 3/uL Normal 2.0-7.7 [facility] Comment on above: Performed By: #### M 100.678 #### [facility] [address] [place], [address] Basophils/100 WBC (Bld) 0.2 % Normal 0-1 [facility] Comment on above: Performed By: #### M 100.678 #### [facility] [address] [place], [address] Eosinophils/100 WBC (Bld) 1.7 % Normal 0-5 [facility] Comment on above: Performed By: #### M 100.678 #### [facility] [address] [place], [address] Erythrocyte distribution width (RBC) [Ratio] 12.1 % Normal 11.6-14.6 [facility] Comment on above: Performed By: #### M 100.678 #### [facility] [address] [place], [address] Hematocrit (Bld) [Volume fraction] 46.1 % Normal 40-54 [facility] Comment on above: Performed By: #### M 100.678 #### [facility] [address] [place], [address] Hemoglobin (Bld) [Mass/Vol] 15.3 g/dL Normal 13.0-16.5 [facility] Comment on above: Performed By: #### M 100.678 #### [facility] [address] [place], [address] IG% 0.200 Normal 0.0-0.9 [facility] Comment on above: Result Comment: IG% - Immature Granulocytes (promyelocytes, myelocytes and metamyelocytes) > 1% indicates that a LEFT SHIFT is Present. Performed By: #### M 100.678 #### [facility] [address] [place], [address] Lymphocytes/100 WBC (Bld) 48.4 % High 19-41 [facility] Comment on above: Performed By: #### M 100.678 #### [facility] [address] [place], [address] MCH (RBC) [Entitic mass] 30.1 pg Normal 27.0-32.0 [facility] Comment on above: Performed By: #### M 100.678 #### [facility] [address] [place], [address] MCHC (RBC) [Mass/Vol] 33.2 g/dL Normal 32-36 [facility] Comment on above: Performed By: #### M 100.678 #### [facility] [address] [place], [address] MCV (RBC) [Entitic vol] 90.6 fL Normal 80-94 [facility] Comment on above: Performed By: #### M 100.678 #### [facility] [address] [place], [address] Monocytes/100 WBC (Bld) 10.5 % High 0-10 [facility] Comment on above: Performed By: #### M 100.678 #### [facility] [address] [place], [address] Neutrophils/100 WBC (Bld) 39.0 % Low 47-70 [facility] Comment on above: Performed By: #### M 100.678 #### [facility] [address] [place], [address] Nucleated RBC (Bld) [#/Vol] 0 10*3/uL Normal 0-5 [facility] Comment on above: Performed By: #### M 100.678 #### [facility] [address] [place], [address] Platelet mean volume (Bld) [Entitic vol] 10.3 fL Normal 6.2-12.0 [facility] Comment on above: Performed By: #### M 100.678 #### [facility] [address] [place], [address] Platelets (Bld) [#/Vol] 255 10*3/uL Normal 150-450 [facility] Comment on above: Performed By: #### M 100.678 #### [facility] [address] [place], [address] RBC (Bld) [#/Vol] 5.09 10*6/uL Normal 4.6-6.2 [facility] Comment on above: Performed By: #### M 100.678 #### [facility] [address] [place], [address] RDW SD 40.2 fl Normal 35.1-43.9 [facility] Comment on above: Performed By: #### M 100.678 #### [facility] [address] [place], [place], [address] WBC (Bld) [#/Vol] 5.9 10*3/uL Normal 4.4-11.0 [facility] Comment on above: Performed By: #### M 100.678 #### [facility] [address] [facility] [place], [place], [address] Carbon dioxide measurementOr dered By: Ed Montoya on 06-09-2024 CO2 [Moles/Vol] 24.0 mmol/L 21.0-32.0 [facility] Chest PA and Lateralon 06-09 Chest PA and Lateral [facility] [address] [place] [address] Chest PA and Lateral MR#: [id number] Acct: [id number] Name: LELE PASTRANA Rep #: [id number] : 1960 M 63 From: Dmitri Reynoso MD PCP: Dr. Les Viramontes MD Status: REG ER Study: Chest PA and Lateral Date of Exam: 06/09/24 Exam# [id number] Ordering Dr: Ed Montoya DO PROCEDURE: CHEST PA AND LATERAL REASON FOR EXAM: Increased weakness; fatigue; cough and congestion. TECHNIQUE: Frontal and lateral views of the chest. COMPARISON: None. FINDINGS: The heart size is normal. The mediastinal contour is unremarkable. The lungs are clear. The bones are unremarkable. RAD/Chest PA and Lateral IMPRESSION: NEGATIVE CHEST Reading Location: [id number] CC: Dr. Ed Montoya DO; Dr. Les Viramontes MD Plant Reliability Engineer: Signed Normal [facility] Chloride measurementOrdered By: Ed Montoya on 06-09-2024 Chloride [Moles/Vol] 105 mmol/L 98-107 [facility] Emergency Department Summary on 06-09-[address] [facility] Medical Records Department [address] [place] [address] Emergency Department Summary 06/09/24 MR#: [id number] Acct: [id number] Name: LELE PASTRANA Rep #: [id number] : 1960 63 From: Ed Patterson PCP: Dr. Les Viramontes MD Status:DEP ER Location: ED HPI History of Present Illness Chief Complaint: Shortness of Breath Informant: patient and spouse/S.O. Narrative Narrative: History of asthma and diabetes, 1 with history of fatigue not feeling well. Mild cough productive. No fevers. No urinary symptoms. Had diarrhea yesterday but states he must ate something bad. Denies black or bloody stools. Denies nausea or vomiting. States mild wheezing. Reports his pulse ox at home was in the 80s throughout the week. Denies any tobacco history. Prior similar symptoms: No PFSH PFSH Medical History Obesity Polyneuropathy due to type 2 diabetes mellitus Diabetes GERD (gastroesophageal reflux disease) Neuropathy Asthma Acute bronchitis Sepsis Hyperlipidemia Hypertension Type 2 diabetes mellitus Home Medications ???Medication ???Instructions ???Recorded ???Last Taken ???Type multivitamin (Multiple Vitamins 1 ea PO DAILY 08/22/16 08/21/16 Hi story tablet) atorvastatin 10 mg tablet 10 mg PO QHS 10/13/20 Unknown Hist ory tamsulosin 0.4 mg capsule 0.4 mg PO QHS 10/13/20 Unknown His tory pen needle, diabetic 32 gauge x #100 ea 10/26/21 Unknown Rx (BD Ultra-Fine Wendy Pen Needle) omeprazole magnesium 20 mg 20 mg PO DAILY 10/31/22 Unknown Hi story tablet,delayed release (Prilosec OTC) lisinopril 5 mg tablet 2.5 mg PO DAILY 06/25/23 Unknown H istory metformin 1,000 mg tablet 1,000 mg PO BIDWMEAL #180 tabs 05/30 Unknown Rx cyanocobalamin (vitamin B-12) 1,000 mcg PO DAILY 12/24/23 Unknow n History 1,000 mcg tablet dulaglutide 4.5 mg/0.5 mL 4.5 mg (0.5 mL) subcut QWEEK #6 mL 02/04/24 Unknown Rx subcutaneous pen injector (Trulicity) dapagliflozin propanediol 10 mg 10 mg PO QDAY #90 tabs 04/09/24 Un known Rx tablet (Farxiga) melatonin 5 mg capsule mg PO HS PRN 05/09/24 Unknown Hist ory Allergy/AdvReac Type Severity Reaction Status Date / Time No Known Allergies Allergy Verified 06/09/24 16:03 Family History Father CVA (cerebral vascular accident) Diabetes Heart disease Myocardial infarction, Onset Age: 64 Mother Diabetes Grandfather Diabetes Other High cholesterol Hypertension Skin cancer Social History Smoking Status: Never smoker second hand exposure: No alcohol intake: never substance use type: does not use caffeine: No what type of physical activity do you participate in: none ROS ROS ED Constitutional Constitutional ED: Reports other Details: Fatigue ; Denies chills, fever(s) or sweats ENT ENT ED: Denies sore throat Cardiovascular Cardiovascular: Denies chest pain, leg edema, palpitations or racing heartbeat Respiratory/Chest Respiratory/Chest: Reports cough; Denies dyspnea or dyspnea on exertion Gastrointestinal Gastrointestinal: Reports diarrhea; Denies abdominal pain, nausea or vomiting Genitourinary Genitourinary ED: Denies dysuria, hematuria or urinary frequency Musculoskeletal Musculoskeletal: Denies back pain, extremity pain or neck pain Integumentary Denies rash or wounds Neurologic Neurologic: Denies headache(s), paresthesias or weakness EXAM Physical Exam Const Vital Signs: 06/09/24 16:03 06/09/24 17:42 06/09/24 20:00 Temperature 98 F 97.6 F L Temperature Source Oral Oral Pulse Rate 93 67 Respiratory Rate 18 18 Respiratory Effort Normal Respiratory Depth Normal Respiratory Pattern Normal Blood Pressure 120/73 112/84 H Blood Pressure Mean 88 93 Pulse Ox 98 98 Oxygen Delivery Method Room Air Room Air Room Air Positive well nourished and well developed General Appearance ED: well developed and NAD HEENT HEENT Narrative: Mild dry mucosal membranes. normocephalic and atraumatic Eyes General Eye ED: Yes normal appearance of both eyes Neck full ROM Chest Wall Chest: Negative for tenderness Resp normal respiratory effort and normal air movement Effort and Inspection: symmetric chest movement; Negative for respiratory distress Cardio regular rate, regular rhythm and no murmurs Peripheral Pulses: pulses 2+ throughout GI normal to inspection, nondistended, normoactive bowel sounds and non-tender Palpation: Negative for guarding or rebound tenderness present Extremity normal to inspection General Extremety ED: Negative for edema or tenderness General Extremity: Negative for edema Neuro orien (more content not included)... Normal [facility] Eosinophil percentageOrdered By: Ed Montoya on 06-09-2024 Eosinophils/100 WBC (Bld) 1.7 % 0-5 [facility] Erythrocyte distribution wid th ratioOrdered By: Ed Montoya on 06-09-2024 Erythrocyte distribution width (RBC) [Ratio] 12.1 % 11.6-14.6 [facility] Erythrocyte distribution wid th standard deviationOrdered By: Ed Montoya on 06-09-2024 Erythrocyte distribution width (RBC) [Ratio] 40.2 fl 35.1-43.9 [facility] Glomerular filtration rate ( GFR) estimationOrdered By: Ed Montoya on 06-09-2024 GFR/1.73 sq M.predicted among non-blacks MDRD (S/P/Bld) [Vol rate/Area] 96 mL/min/{1.73_m2} >60 [facility] Comment on above: Non- GFR Calc Glucose measurementOrdered B y: Ed Montoya on 06-09-2024 Glucose [Mass/Vol] 132 mg/dL High 74-106 [facility] Comment on above: Fasting Glucose resu lt greater than or equal to 126 mg/dL suggests DIABETES MELLITUS per A.D.A. criteria. Hematocrit Auto (Bld) [Volum e fraction]Ordered By: Ed Montoya on 06-09-2024 Hematocrit (Bld) [Volume fraction] 46.1 % 40-54 [facility] Hemoglobin measurementOrdere d By: Ed Montoya on 06-09-2024 Hemoglobin (Bld) [Mass/Vol] 15.3 g/dL 13.0-16.5 [facility] Immature granulocytes/100 WB C Auto (Bld)Ordered By: Ed Montoya on 06-09-2024 Immature granulocytes/100 WBC (Bld) 0.200 % 0.0-0.9 [facility] Comment on above: IG% - Immature Granu locytes (promyelocytes, myelocytes and metamyelocytes) > 1% indicates that a LEFT SHIFT is Present. Influenza virus A and B and SARS-CoV-2 (COVID-19) and Respiratory syncytial virus RNAOrdered By: Ed Montoya on 06-09-2024 SARS-CoV-2 (COVID-19) RNA SANDRA+probe Ql (Unsp spec) Influenzae A Abnormal [facility] M100.678on 06-09-2024 SARS-CoV-2 (COVID-19) Ab IA Ql Normal Reference Range = Negative FLUABV+SARS-CoV-2+RS V Pnl Resp SANDRA+probe GeneXpert Instrument, PCR method FLUABV+SARS-CoV-2+RS V Pnl Resp SANDRA+probe Copy of report sent to Infection Control Printer MS#[id number] 06/09/241940 MADELEINE. RESULTS CALLED TO [employer] 06/09/241940 Gladys Morales. REPORT READ BACK BY SAME. SARS-CoV-2 (COVID 19) Negative INFLUENZA A A Positive A INFLUENZA B Negative RSV PCR Negative INFLUENZAE A Normal [facility] Comment on above: Performed By: #### M 100.678 #### [facility] [address] [place] [address]. [place], [address] MCV (mean corpuscular volume ) determinationOrdered By: Ed Montoya on 06-09-2024 MCV (RBC) [Entitic vol] 90.6 fL 80-94 [facility] Mean corpuscular hemoglobin (MCH) determinationOrdered By: Ed Montoya on 06-09-2024 MCH (RBC) [Entitic mass] 30.1 pg 27.0-32.0 [facility] Mean corpuscular hemoglobin concentration (MCHC) determinationOrdered By: Ed Montoya on 06-09-2024 MCHC (RBC) [Mass/Vol] 33.2 g/dL 32-36 [facility] Mean platelet volume determi nationOrdered By: Ed Montoya on 06-09-2024 Platelet mean volume (Bld) [Entitic vol] 10.3 fL 6.2-12.0 [facility] Monocyte percentageOrdered B y: Ed Montoya on 06-09-2024 Monocytes/100 WBC (Bld) 10.5 % High 0-10 [facility] Neutrophil percentageOrdered By: Ed Montoya on 06-09-2024 Neutrophils/100 WBC (Bld) 39.0 % Low 47-70 [facility] Nucleated red blood cell per centageOrdered By: Ed Montoya on 06-09-2024 Nucleated RBC/100 WBC (Bld) [Ratio] 0 % 0-5 [facility] Platelet countOrdered By: Prasad hawa Montoya on 06-09-2024 Platelets (Bld) [#/Vol] 255 10*3/uL 150-450 [facility] Potassium measurementOrdered By: Ed Montoya on 06-09-2024 Potassium [Moles/Vol] 4.1 mmol/L 3.5-5.1 [facility] RBC Auto (Bld) [#/Vol]Ordere d By: Ed Montoya on 06-09-2024 RBC (Bld) [#/Vol] 5.09 10*6/uL 4.6-6.2 [facility] Serum anion gap measurementO rdered By: Ed Montoya on 06-09-2024 Anion gap [Moles/Vol] 8 mmol/L 5-15 [facility] Serum or plasma calcium tyshawn urement (mass/volume)Ordered By: Ed Montoya on 06-09-2024 Calcium [Mass/Vol] 8.9 mg/dL 8.5-10.1 [facility] Serum or plasma creatinine m easurement (mass/volume)Ordered By: Ed Montoya on 06-09-2024 Creatinine [Mass/Vol] 0.85 mg/dL 0.70-1.30 [facility] Comment on above: The validity of the calculated GFR & GFRAA in patients over 70 years has not been determined. Clinical correlation is essential. Serum or plasma urea nitroge n measurement (mass/volume)Ordered By: Ed Montoya on 06-09-2024 Urea nitrogen [Mass/Vol] 13 mg/dL 7-18 [facility] Sodium levelOrdered By: Ed Montoya on 06-09-2024 Sodium [Moles/Vol] 137 mmol/L 136-145 [facility] White blood cell (WBC) count Ordered By: Ed Montoya on 06-09-2024 WBC (Bld) [#/Vol] 5.9 10*3/uL 4.4-11.0 [facility] Pulmonary Visit Reporton Pulmonary Visit Report [facility] [place] [address] [place] [address] OFFICE VISIT Date of Service: 05/09/24 MR#: [id number] Acct: [id number] Name: LELE PASTRANA Rep #: [id number] : 1960 Provider: Luanne Bar NP Age/Sex: 63/M Location: [facility] Status: Signed Assessment and Plan Assessment and Plan (1) LONI (obstructive sleep apnea): Status: Chronic Plan: The baseline sleep testing is now outdated. STOPBANG 10/12, high risk. There has been worsening daytime hypersomnia. The patient awakens feeling unrefreshed. I am suspecting a greater severity of obstructive sleep apnea and the differential does also include PLMD, I have recommended an in lab PSG. Ambien 5 mg will be beneficial to this patient for the night of the sleep study as he has difficulty falling asleep and staying asleep. The on call pharmacy technician is to perform a mini neuro evaluation prior to releasing patient in the morning. (2) Asthma: Status: Chronic Qualifiers: Asthma complication type: uncomplicated Asthma persistence: unspecified Asthma severity: unspecified severity Qualified Code(s): J45.909 - Unspecified asthma, uncomplicated Plan: Asthma is not active today. Continue with OTC medications to manage allergy symptoms including Flonase and Claritin as recommended today. He has been encouraged to contact the office with any new or worsening symptoms in the meantime. Orders: Orders Polysomnography Today G47.33 - Obstructive sleep apnea (adult) (pediatric) Plan Details Follow Up: 3 Months (LMR) HPI HPI Comments Details: This 63 year old male patient presents to the office today for follow-up of sleep concerns. He is ambulatory and currently on room air. He had a home sleep study from 2017 which showed an AHI of 10.7 and severe desaturations. At that time he did not choose to proceed with treatment for sleep apnea. He instead obtained an [id number] oral appliance and wore this for many years. He reports that he has had worsening daytime hypersomnia although his ESS is 4. He awakens feeling unrefreshed. He has frequent awakenings throughout the night, up to 3 times. Nocturia will occur on occasion. He denies morning headaches and dry mouth. He does utilize melatonin for sleep onset with little benefit. He does snore on occasion. He reports that he has sinus congestion at times. He sleeps in side-lying positioning. He is apprehensive about treatment due to claustrophobia. He has had no recent exacerbation of his asthma. He is not currently on inhaled therapy. He has not required antibiotics or prednisone for bronchitis or pneumonia. He does have some shortness of breath on exertion, but this has not progressed. He is denying cough and sputum production. He denies any wheezing, chest tightness, chest pain or palpitations. He denies fever, chills or body aches. He does have some sinus congestion. He is a lifetime non-smoker. Pulmonary function test completed on November 17, 2022. Impression is mild restrictive ventilatory impairment with preserved diffusing capacity. STOP-BANG Assessment: 1. Do you snore? [Y] 2. Are you frequently tired during the day? [Y] 3. Have you been observed gasping or choking while asleep? [N] 4. Do you have high blood pressure? [Y] 5. BMI - greater than 35kg/m2? [N] 6. Age - over 50 years old? [Y] 7. Neck Circumference - greater than 37 cm for females or 40 cm for males? [44.5cm] 8. Gender - male? [Y] Total STOP-BANG score = [6] which indicates [high] risk for obstructive sleep apnea (yes to 3 or more questions = high risk of sleep apnea). Intake Vital Signs 04/28/24 11:32 05/09/24 12:35 Height 5 ft 9 in 5 ft 9 in Weight: 226 lb 4 oz 217 lb BMI 33.4 32.0 BP 114/81 H 120/78 Blood Pressure Location Rt brachial Rt brachial Position Sitting Sitting Respiration 18 Pulse 89 87 Pulse Source Monitor Monitor Temp 96.2 F L Temperature Source Temporal Artery Pulse Oximetry (%) 94 95 Oxygen Delivery Method room air room air Intake Visit Reasons: 1 Y FU/LONI Chief Complaint: f/u diabetes Supervisor Brake Repair Required: No Accompanied by: Allergies Seasonal Allergies: Uncoded Allergy (Verified 05/09/24 14:40) Other Medications ???Medication ???Instructions ???Recorded ???Confirmed ???Type multivitamin (Multiple Vitamins 1 ea PO DAILY 08/22/16 05/09/24 History tablet) atorvastatin 10 mg tablet 10 mg PO QHS 10/13/20 05/09/24 History tamsulosin 0.4 mg capsule 0.4 mg PO QHS 10/13/20 05/09/24 History pen needle, diabetic 32 gauge x #100 ea 10/26/21 05/09/24 Rx /32 (BD Ultra-Fine Wendy Pen Needle) omeprazole magnesium 20 mg 20 mg PO DAILY 10/31/22 05/09/24 History tablet,delayed release (Prilosec OTC) lisinopril 5 mg tablet 2.5 mg PO DAILY 06/25/23 05/09/24 Hist (more content not included)... Normal [facility] Endocrinology Visit Reporton 04-28-2024 Endocrinology Visit Report [facility] [address] [place] [address] OFFICE VISIT Date of Service: 04/28/24 MR#: [id number] Acct: [id number] Name: LELE PASTRANA Rep #: [id number] : 1960 Provider: BEN power Age/Sex: 63/M Location[place] [facility] Status: Signed Intake Vital Signs 12/24/23 14:18 04/28/24 11:32 Height 5 ft 9 in 5 ft 9 in Weight: 224 lb 226 lb 4 oz BMI 33.0 33.4 BP 110/86 H 114/81 H Blood Pressure Location Lt brachial Rt brachial Position Sitting Sitting Respiration 16 Pulse 82 89 Pulse Source Monitor Monitor Temp 96.8 F L Temp Source Temporal Pulse Oximetry (%) 98 94 Oxygen Delivery Method room air room air Intake Visit Reasons: 3.5 M JIE LOPEZ 03/24 Chief Complaint: f/u diabetes Is patient in pain?: No Allergies Seasonal Allergies: Uncoded Allergy (Verified 04/28/24 11:37) Other Medications ???Medication ???Instructions ???Recorded ???Confirmed ???Type multivitamin (Multiple Vitamins 1 ea PO DAILY 08/22/16 04/28/24 History tablet) atorvastatin 10 mg tablet 10 mg PO QHS 10/13/20 04/28/24 History tamsulosin 0.4 mg capsule 0.4 mg PO QHS 10/13/20 04/28/24 History pen needle, diabetic 32 gauge x #100 ea 10/26/21 04/28/24 Rx (BD Ultra-Fine Wendy Pen Needle) omeprazole magnesium 20 mg 20 mg PO DAILY 10/31/22 04/28/24 History tablet,delayed release (Prilosec OTC) lisinopril 5 mg tablet 2.5 mg PO DAILY 06/25/23 04/28/24 History metformin 1,000 mg tablet 1,000 mg PO BIDWMEAL #180 tabs 10/06/23 04/28/24 Rx cyanocobalamin (vitamin B-12) 1,000 mcg PO DAILY 12/24/23 04/28/24 History 1,000 mcg tablet dulaglutide 4.5 mg/0.5 mL 4.5 mg (0.5 mL) subcut QWEEK #6 mL 02/04/24 04/28/24 Rx subcutaneous pen injector (Trulicity) dapagliflozin propanediol 10 mg 10 mg PO QDAY #90 tabs 04/09/24 04/28/24 Rx tablet (Farxiga) Have you fallen in the past year?: No PFSH Medical History Obesity Polyneuropathy due to type 2 diabetes mellitus Diabetes GERD (gastroesophageal reflux disease) Neuropathy Asthma Acute bronchitis Sepsis Hyperlipidemia Hypertension Type 2 diabetes mellitus Family History Father CVA (cerebral vascular accident) Diabetes Heart disease Myocardial infarction, Onset Age: 64 Mother Diabetes Grandfather Diabetes Other High cholesterol Hypertension Skin cancer Social History Smoking Status: Never smoker second hand exposure: No alcohol intake: never substance use type: does not use caffeine: No what type of physical activity do you participate in: none HPI HPI Chief Complaint: f/u diabetes Details: LELE PASTRANA, is a 63 M who presents to the office today for evaluation and management of diabetes. A1C on 04/10/24 with PCP was 7.6%, improved from 12/24/23 at 8.1%. He has gained 2 lbs since that time. Currently taking Trulicity 4.5 mg qweek- tolerating well, metformin 1 gm BID with food, and Jardiance 25 mg once daily. He has been off Jardiance for 8 days, he ran out and was approved for [employer] patient assistance for [place]; however, he has not received his shipment yet. He was on glipizide previously in the remote past. He has been hesitant to resume d/t risks associated with COFFEY. He admits that he has been off track with his diet. BP is controlled. Currently taking lisinopril 2.5 mg once daily. He takes a daily statin. Labs are up to date with PCP, I do not have access to these. At his previous appointment he reported significant fatigue. Labs were unremarkable with the exception of low normal ferritin. He got iron supplement OTC, he only took a couple doses as he read it can form GI upset. STOP BANG 11/11. Discussed contacting pulmonology to discuss potential sleep study. He has not contacted them. Denies any acute concerns. ROS Const Constitutional: Positive for fatigue; No weight change ENT ENT: No dizziness/vertigo Cardio Cardiology: No chest pain at rest, chest pain with exertion, shortness of breath or palpitations Skin Skin: No wounds Endo Endocrine: Positive for fatigue; No weight change Exam Const General: cooperative, healthy appearing, comfortable and no acute distress Nutritional Appearance: obese Orientation: alert, awake and oriented x3 HENMT Head: normal to inspection Ears: hearing grossly normal bilaterally Nose: external nose normal Face and sinus: normal facial exam Eyes General: appearance normal, both eyes and all related structures Alignment and Position: alignment normal Sclera: sclerae normal Neck Neck: normal visual inspection Escobar (more content not included)... Normal [facility] CNOVon 04-14-2024 CNOV Office Visit (INTMWS) LELE PASTRANA ([id number]) 1960 M Date Time Provider Department 04/14/24 2:00 PM [facility] VIRAMONTES INTMWS During your visit today, we recorded the following information about you: Temperature Pulse Respiration Blood pressure 97.9 degrees 88/minute 16/minute 108/70 Weight 100.5 kg Les Viramontes MD 04/14/2024 2:46 PM Signed This note was created using [employer]. Subjective Lele Pastrana is a 63 year old male. His dizziness was much less on lower dose of lisinopril, maybe every 6 weeks. He was still losing weight. He felt well overall. Review of Systems Constitutional: Negative for fatigue. Respiratory: Negative for shortness of breath. Cardiovascular: Negative for chest pain and palpitations. Gastrointestinal: Negative for abdominal pain, diarrhea and nausea. Neurological: Positive for light-headedness. Negative for headaches. ACTIVE PROBLEM LIST Esophageal Reflux Type 2 Diabetes Mellitus With Diabetic Neuropathy, Without Long-Term Current Use of Insulin (Hcc) Hyperlipidemia With Target Ldl Less Than 100 Bph With Obstruction/Lower Urinary Tract Symptoms Essential Hypertension LONI (obstructive sleep apnea) mild. Obesity, Class I, Bmi 30-34.9 Tubular Adenoma of Colon Obesity, Class II, Bmi 35-39.9 Erythema Intertrigo Current Outpatient Medications on File Prior to Visit Medication Sig tamsulosin (FLOMAX) 0.4 mg Take 1 capsule by mouth daily at bedtime. metFORMIN (GLUCOPHAGE) 500 mg tablet Take 2 tablets by mouth two times a day with meals. lisinopril 2.5 mg tablet Take 1 tablet by mouth once daily. atorvastatin (LIPITOR) 10 mg tablet Take 1 tablet by mouth daily at bedtime. dulaglutide (TRULICITY) 4.5 mg/0.5 mL pen injector Inject 4.5 mg subcutaneously one time a week. Per Endo. empagliflozin (JARDIANCE) 25 mg tablet Take 1 tablet by mouth once daily. Per Endo. Omeprazole Magnesium (PRILOSEC OTC) 20 mg tablet Take 1 tablet by mouth daily before breakfast. 1/2 hr before meal. blood sugar diagnostic (ONE TOUCH ULTRA TEST) test strip Test blood sugar(s) one time daily. Dx: 250.00. Insulin: No Lancets (ONE TOUCH DELICA) lancets Test blood sugar(s) once daily. Dx: 250.00. Insulin: No MULTIVITAMIN TAB Take one(1) tablet daily. No current facility-administere d medications on file prior to visit. Objective BP 108/70 (BP Site: Left Arm, BP Position: Sitting, BP Cuff Size: Large Adult) Pulse 88 Temp 36.6 ?C (97.9 ?F) (Temporal) Resp 16 Wt 100.5 kg (221 lb 9 oz) BMI 32.72 kg/m? Physical Exam Constitutional: Appearance: He is not ill-appearing. Cardiovascular: Rate and Rhythm: Normal rate and regular rhythm. Heart sounds: No murmur heard. No gallop. Pulmonary: Breath sounds: Normal breath sounds. Musculoskeletal: Right lower leg: No edema. Left lower leg: No edema. Neurological: Mental Status: He is alert. Feet:Shoes and socks removed, No deformities, ulcers, calluses, normal distal pulses, and sensitive to 10 gm monofilament. Latest Ref Rng 04/10/2024 Protein, Total 6.3 - 8.0 g/dL 7.1 Albumin 3.9 - 4.9 g/dL 4.2 Calcium 8.5 - 10.2 mg/dL 9.3 Bilirubin, Total 0.2 - 1.3 mg/dL 0.5 Alkaline Phosphatase 38 - 113 U/L 106 AST 14 - 40 U/L 25 ALT 10 - 54 U/L 30 Glucose 74 - 99 mg/dL 118 (H) BUN 9 - 24 mg/dL 12 Creatinine 0.73 - 1.22 mg/dL 0.86 Sodium 136 - 144 mmol/L 139 Potassium 3.7 - 5.1 mmol/L 4.6 Chloride 98 - 107 mmol/L 100 CO2 22 - 30 mmol/L 27 Anion Gap 8 - 15 mmol/L 12 eGFR >=60 mL/min/1.73m? 96 WBC 3.70 - 11.00 k/uL 8.34 RBC 4.20 - 6.00 m/uL 5.23 Hemoglobin 13.0 - 17.0 g/dL 16.2 Hematocrit 39.0 - 51.0 % 49.6 MCV 80.0 - 100.0 fL 94.8 MCH 26.0 - 34.0 pg 31.0 MCHC 30.5 - 36.0 g/dL 32.7 RDW-CV 11.5 - 15.0 % 12.3 Platelet Count 150 - 400 k/uL 313 MPV 9.0 - 12.7 fL 10.3 Absolute nRBC <0.01 k/uL <0.01 Cholesterol, Total <200 mg/dL 151 Triglyceride <150 mg/dL 159 (H) HDL Cholesterol >39 mg/dL 45 Non HDL Cholesterol <130 mg/dL 106 Fasting Time hrs 12 VLDL Cholesterol <30 mg/dL 32 (H) TC:HDL Ratio <5.10 3.36 LDL Cholesterol <100 mg/dL 74 LDL:HDL Ratio <2.54 1.64 Hemoglobin A1C 4.3 - 5.6 % 7.6 (H) Estimated Average Glucose mg/dL 171 Legend: (H) High Assessment and Plan 1. Type 2 diabetes mellitus with diabetic neuropathy, without long-term current use of insulin (HCC) - ICD9: 250.60, 357.2, ICD10: E11.40 (primary diagnosis) - Improving control - Continue current medications - He will schedule eye exam. - BASIC METABOLIC PANEL - HEMOGLOBIN A1C - LIPID PANEL BASIC - ALBUMIN/CREATININE RATIO, URINE 2. Essential hypertension - ICD9: 401.9, ICD10: I10 - Controlled - Continue current medications - Call for worsening dizziness. 3. Hyperlipidemia with target LDL less than 100 - ICD9: 272.4, ICD10: E78.5 - Controlled - Continue current medications - Counseled (more content not included)... Normal [facility] CBC panel Auto (Bld)on 04-10 Erythrocyte distribution width (RBC) [Ratio] 12.3 % Normal 11.5-15.0 [facility] Comment on above: Order Comment: Speci men Type: BLOOD SPECIMEN Ordering Facility: [facility] Address: [address] [place] [address] Performed By: #### 2 4331-1, 55075-1 #### [facility] CLIA [id number] [address] [place] [address] [place] Hematocrit (Bld) [Volume fraction] 49.6 % Normal 39.0-51.0 [facility] Comment on above: Order Comment: Speci men Type: BLOOD SPECIMEN Ordering Facility: [facility] Address: [address] [place] [address] Performed By: #### 2 4331-1, 62571-4 #### [facility] CLIA [id number] [address] [place] [address] [place] Hemoglobin (Bld) [Mass/Vol] 16.2 g/dL Normal 13.0-17.0 [facility] Comment on above: Order Comment: Speci men Type: BLOOD SPECIMEN Ordering Facility: [facility] Address: [address] [place] [address] Performed By: #### 2 4331-1, 30763-4 #### [facility] CLIA [id number] [address] [place] [address] [place] MCH (RBC) [Entitic mass] 31.0 pg Normal 26.0-34.0 [facility] Comment on above: Order Comment: Speci men Type: BLOOD SPECIMEN Ordering Facility: [facility] Address: [address] [place] [address] Performed By: #### 2 4331-1, 06176-3 #### [facility] CLIA [id number] [address] [place] [address] [place] MCHC (RBC) [Mass/Vol] 32.7 g/dL Normal 30.5-36.0 [facility] Comment on above: Order Comment: Speci men Type: BLOOD SPECIMEN Ordering Facility: [facility] Address: [address] [place] [address] Performed By: #### 2 4331-1, 62160-2 #### [facility] CLIA [id number] [address] [place] [address] [place] MCV (RBC) [Entitic vol] 94.8 fL Normal 80.0-100.0 [facility] Comment on above: Order Comment: Speci men Type: BLOOD SPECIMEN Ordering Facility: [facility] Address: [address] [place] [address] Performed By: #### 2 4331-1, 16107-2 #### [facility] CLIA [id number] [address] [place] [id number] [address] [place] Nucleated RBC (Bld) [#/Vol] 10*3/uL Normal <0.01 [facility] Comment on above: Order Comment: Speci men Type: BLOOD SPECIMEN Ordering Facility: [facility] Address: [address] [place] [address] Performed By: #### 2 4331-1, 10048-1 #### [facility] CLIA [id number] [address] [place] [address] [place] Platelet mean volume (Bld) [Entitic vol] 10.3 fL Normal 9.0-12.7 [facility] Comment on above: Order Comment: Speci men Type: BLOOD SPECIMEN Ordering Facility: [facility] Address: [address] [place] [address] Performed By: #### 2 4331-1, 25810-2 #### [facility] CLIA [id number] [address] [place] [address] [place] Platelets (Bld) [#/Vol] 313 10*3/uL Normal 150-400 [facility] Comment on above: Order Comment: Speci men Type: BLOOD SPECIMEN Ordering Facility: [facility] Address: [address] [place] [address] Performed By: #### 2 4331-1, 14310-1 #### [facility] CLIA [id number] [address] [place] [address] [place] RBC (Bld) [#/Vol] 5.23 10*6/uL Normal 4.20-6.[address] [facility] Comment on above: Order Comment: Speci men Type: BLOOD SPECIMEN Ordering Facility: [facility] Address: [address] [place] [address] Performed By: #### 2 4331-1, 32086-9 #### [facility] CLIA [id number] [address] [place] [address] [place] WBC (Bld) [#/Vol] 8.34 10*3/uL Normal 3.70-11.[address] [facility] Comment on above: Order Comment: Speci men Type: BLOOD SPECIMEN Ordering Facility: [facility] Address: [address] [place] [address] Performed By: #### 2 4331-1, 17348-2 #### [facility] CLIA [id number] [address] [place] [address] [place] Comprehensive metabolic 2000 panelon 04-10-2024 Albumin [Mass/Vol] 4.2 g/dL Normal 3.9-4.[address] [facility] Comment on above: Order Comment: Speci men Type: BLOOD SPECIMEN Ordering Facility: [facility] Address: [address] [place] [address] Performed By: #### 2 4331-1, 41567-0 #### [facility] CLIA [id number] [address] [place] [address] [place] ALP [Catalytic activity/Vol] 106 U/L Normal 38-113 [facility] Comment on above: Order Comment: Speci men Type: BLOOD SPECIMEN Ordering Facility: [facility] Address: [address] [place] [address] Performed By: #### 2 4331-1, #### [facility] CLIA [id number] [address] [place] [address] [place] ALT [Catalytic activity/Vol] 30 U/L Normal 10-54 [facility] Comment on above: Order Comment: Speci men Type: BLOOD SPECIMEN Ordering Facility: [facility] Address: [address] [place] [address] Performed By: #### 2 4331-1, 20597-9 #### [facility] CLIA [id number] [address] [place] [address] [place] Anion gap [Moles/Vol] 12 mmol/L Normal 8-15 [facility] Comment on above: Order Comment: Speci men Type: BLOOD SPECIMEN Ordering Facility: [facility] Address: [address] [place] [address] Performed By: #### 2 4331-1, 32697-8 #### [facility] CLIA [id number] [address] [place] [address] [place] AST [Catalytic activity/Vol] 25 U/L Normal 14-40 [facility] Comment on above: Order Comment: Speci men Type: BLOOD SPECIMEN Ordering Facility: [facility] Address: [address] [place] [address] Performed By: #### 2 4331-1, 28666-3 #### [facility] CLIA [id number] [address] [place] [address] [place] Bilirubin [Mass/Vol] 0.5 mg/dL Normal 0.2-1.3 [facility] Comment on above: Order Comment: Speci men Type: BLOOD SPECIMEN Ordering Facility: [facility] Address: [address] [place] [address] Performed By: #### 2 4331-1, 88263-5 #### [facility] CLIA [id number] [address] [place] [address] [place] Calcium [Mass/Vol] 9.3 mg/dL Normal 8.5-10.[address] [facility] Comment on above: Order Comment: Speci men Type: BLOOD SPECIMEN Ordering Facility: [facility] Address: [address] [place] [address] Performed By: #### 2 4331-1, 86132-6 #### [facility] CLIA [id number] [address] [place] [address] [place] Chloride [Moles/Vol] 100 mmol/L Normal 98-107 [facility] Comment on above: Order Comment: Speci men Type: BLOOD SPECIMEN Ordering Facility: [facility] Address: [address] [place] [address] Performed By: #### 2 4331-1, 94790-5 #### [facility] CLIA [id number] [address] [place] [address] [place] CO2 [Moles/Vol] 27 mmol/L Normal 22-30 [facility] Comment on above: Order Comment: Speci men Type: BLOOD SPECIMEN Ordering Facility: [facility] Address: [address] [place] [address] Performed By: #### 2 4331-, 74210-5 #### [facility] CLIA [id number] [address] [place] [address] [place] Creatinine [Mass/Vol] 0.86 mg/dL Normal 0.73-1.22 [facility] Comment on above: Order Comment: Speci men Type: BLOOD SPECIMEN Ordering Facility: [facility] Address: [address] [place] [address] Performed By: #### 2 4331-, 28389-7 #### [facility] CLIA [id number] [address] [place] [address] [place] Creatinine and Glomerular filtration rate.predicted panel (S/P/Bld) 96 mL/min/1.73m??? Normal >=60 [facility] Comment on above: Order Comment: Speci men Type: BLOOD SPECIMEN Ordering Facility: [facility] Address: [address] [place] [address] Result Comment: Karen mated Glomerular Filtration Rate (eGFR) is calculated using the 2020 CKD-EPI creatinine equation. This equation utilizes serum creatinine, sex, and age as parameters. The creatinine assay has traceable calibration to isotope dilution-mass spectrometry. Refer to KDIGO guidelines for clinical interpretation. In patients with unstable renal function, e.g. those with acute kidney injury, the eGFR may not accurately reflect actual GFR. Performed By: #### 2 4331-1, 94252-8 #### [facility] CLIA [id number] [address] [place] [address] [place] Glucose [Mass/Vol] 118 mg/dL High 74-[address] [facility] Comment on above: Order Comment: Neel mtz Type: BLOOD SPECIMEN Ordering Facility: [facility] Address: [address] [place] [address] Result Comment: The [place] Diabetes Association (ADA) provides guidance for cutoff values for fasting glucose and random glucose. The ADA defines fasting as no caloric intake for at least 8 hours. Fasting plasma glucose results between 100 to 125 mg/dL indicate increased risk for diabetes (prediabetes). Fasting plasma glucose results greater than or equal to 126 mg/dL meet the criteria for diagnosis of diabetes. In the absence of unequivocal hyperglycemia, results should be confirmed by repeat testing. In a patient with classic symptoms of hyperglycemia or hyperglycemic crisis, random plasma glucose results greater than or equal to 200 mg/dL meet the criteria for diagnosis of diabetes. Reference: Standards of Medical Care in Diabetes 2016, [place] [employer] Association. Diabetes Care. 2016.39(Suppl 1). Performed By: #### 2 4331-1, 89823-3 #### [facility] CLIA [id number] [address] [place] [address] [place] Potassium [Moles/Vol] 4.6 mmol/L Normal 3.7-5.1 [facility] Comment on above: Order Comment: Neel mtz Type: BLOOD SPECIMEN Ordering Facility: [facility] Address: [address] [place] [address] Performed By: #### 2 4331-1, 38881-4 #### [facility] CLIA [id number] [address] [place] [address] [place] Protein [Mass/Vol] 7.1 g/dL Normal 6.3-8.[address] [facility] Comment on above: Order Comment: Neel mtz Type: BLOOD SPECIMEN Ordering Facility: [facility] Address: [address] [place] [address] Performed By: #### 2 4331-1, 29035-1 #### [facility] CLIA [id number] [address] [place] [address] [place] Sodium [Moles/Vol] 139 mmol/L Normal 136-[address] [facility] Comment on above: Order Comment: Neel mtz Type: BLOOD SPECIMEN Ordering Facility: [facility] Address: [address] [place] [address] Performed By: #### 2 4331-1, 71608-6 #### [facility] CLIA [id number] [address] [place] [address] [place] Urea nitrogen [Mass/Vol] 12 mg/dL Normal 9-24 [facility] Comment on above: Order Comment: Neel mtz Type: BLOOD SPECIMEN Ordering Facility: [facility] Address: [address] [place] [address] Performed By: #### 2 4331-1, #### [facility] CLIA [id number] [address] [place] [address] [place] HbA1c (Bld)on 04-10-2024 Average glucose Estimated from glycated hemoglobin (Bld) [Mass/Vol] 171 mg/dL Normal [facility] Comment on above: Order Comment: Neel mtz Type: BLOOD SPECIMEN Ordering Facility: [facility] Address: [address] [place] [address] Result Comment: eAG: (Estimated average glucose) is a calculated value from HgbA1c and is roofing sales representative of the average blood glucose level in the last 2-3 month period. Performed By: #### 2 4331-1, 00097-5 #### [facility] CLIA [id number] [address] [place] [address] [place] HbA1c (Bld) [Mass fraction] 7.6 % High 4.3-5.6 [facility] Comment on above: Order Comment: Neel mtz Type: BLOOD SPECIMEN Ordering Facility: [facility] Address: [address] [place] [address] Result Comment: Renetta [place] Diabetes Association guidelines indicate that patients with HgbA1c in the range 5.7-6.4% are at increased risk for development of diabetes, and intervention by lifestyle modification may be beneficial. HgbA1c greater or equal to 6.5% is considered diagnostic of diabetes. Performed By: #### 2 4331-1, 35271-7 #### [facility] CLIA [id number] [address] [place] [address] [place] Lipid 1996 panelon 4 Cholesterol [Mass/Vol] 151 mg/dL Normal <200 [facility] Comment on above: Order Comment: Speci men Type: BLOOD SPECIMEN Ordering Facility: [facility] Address: [address] [place] [address] Result Comment: <200 mg/dL, Desirable 200-239 mg/dL, Borderline high >239 mg/dL, High Performed By: #### 2 4331-1, #### [facility] CLIA [id number] [address] [place], [place] [address] [place] Cholesterol in HDL [Mass/Vol] 45 mg/dL Normal >39 [facility] Comment on above: Order Comment: Neel men Type: BLOOD SPECIMEN Ordering Facility: [facility] Address: [address] [place] [address] Result Comment: 40-5 9 mg/dL, Acceptable >59 mg/dL, High: Negative risk factor for coronary heart disease <40 mg/dL, Low: Positive risk factor for coronary heart disease Performed By: #### 2 4331-1, #### [facility] CLIA [id number] [address] [place] [address] [place] Cholesterol in LDL [Mass/Vol] 74 mg/dL Normal <100 [facility] Comment on above: Order Comment: Timi men Type: BLOOD SPECIMEN Ordering Facility: [facility] Address: [address] [place] [address] Result Comment: <100 mg/dL, Optimal 100-129 mg/dL, Near optimal/above optimal 130-159 mg/dL, Borderline high 160-189 mg/dL, High >189 mg/dL, Very high Secondary prevention optimal LDL Cholesterol levels are recommended to be < 70 mg/dL Performed By: #### 2 4331-1, 31379-8 #### [facility] CLIA [id number] [address] [place] [address] [place] Cholesterol in LDL/Cholesterol in HDL [Mass ratio] 1.64 {ratio} Normal <2.54 [facility] Comment on above: Order Comment: Neel mtz Type: BLOOD SPECIMEN Ordering Facility: [facility] Address: [address] [place] [address] Result Comment: Efrain reddyce: 1. National Cholesterol Education Program ATP III Guideline At-A-Glance Quick Desk Reference: National Heart, Lung, and Blood [place]. National Institutes of Health. 2001: NIH Publication No. 01-3305. 2. An International Atherosclerosis Society position paper: global recommendations for the management of dyslipidemia: executive summary, Atherosclerosis. 2014: 232(2):410-413. Performed By: #### 2 4331-1, 01097-3 #### [facility] CLIA [id number] [address] [place] [address] [place] Cholesterol in VLDL [Mass/Vol] 32 mg/dL High <30 [facility] Comment on above: Order Comment: Neel mtz Type: BLOOD SPECIMEN Ordering Facility: [facility] Address: [address] [place] [address] Performed By: #### 2 4331-1, 83927-9 #### [facility] CLIA [id number] [address] [place] [address] [place] Cholesterol non HDL [Mass/Vol] 106 mg/dL Normal <130 [facility] Comment on above: Order Comment: Timi men Type: BLOOD SPECIMEN Ordering Facility: [facility] Address: [address] [place] [address] Result Comment: <130 mg/dL, Optimal 130-159 mg/dL, Near optimal/above optimal 160-189 mg/dL, Borderline high 190-219 mg/dL, High >219 mg/dL, Very high Secondary prevention optimal non HDL Cholesterol levels are recommended to be <100 mg/dL Performed By: #### 2 4331-1, 52198-3 #### [facility] CLIA [id number] [address] [place] [address] [place] Cholesterol.total/Choles terol in HDL [Mass ratio] 3.36 {ratio} Normal <5.10 [facility] Comment on above: Order Comment: Speci men Type: BLOOD SPECIMEN Ordering Facility: [facility] Address: [address] [place] [address] Performed By: #### 2 4331-1, 46937-1 #### [facility] CLIA [id number] [address] [place] [address] [place] FASTING TIME 12 hrs Normal [facility] Comment on above: Order Comment: Speci men Type: BLOOD SPECIMEN Ordering Facility: [facility] Address: [address] [place] [address] Performed By: #### 2 4331-1, 53350-1 #### [facility] CLIA [id number] [address] [place] [address] [place] Triglyceride [Mass/Vol] 159 mg/dL High <150 [facility] Comment on above: Order Comment: Speci men Type: BLOOD SPECIMEN Ordering Facility: [facility] Address: [address] [place] [address] Result Comment: <150 mg/dL, Normal 150-199 mg/dL, Borderline high 200-499 mg/dL, High >499 mg/dL, Very high Performed By: #### 2 4331-1, 54510-0 #### [facility] CLIA [id number] [address] [place] [address] [place] CNOVon 02-04-2024 CNOV Office Visit (INTMWS) LELE PASTRANA ([id number]) 1960 M Date Time Provider Department 02/04/24 7:20 PM LES VIRAMONTES INTMWS During your visit today, we recorded the following information about you: Temperature Pulse Respiration Blood pressure 98.4 degrees 96/minute 16/minute 120/70 Weight 100.7 kg Les Viramontes MD 02/15/2024 4:16 PM Addendum This note was created using Dress Coderiter. Subjective Patient presents with: Suture Removal Lele Pastrana is a 63 year old male had a laceration of his left thumb pad from a band saw. This was healing well. Review of Systems Constitutional: Negative for fever. Neurological: Negative for numbness. ACTIVE PROBLEM LIST Esophageal Reflux Type 2 Diabetes Mellitus With Diabetic Neuropathy, Without Long-Term Current Use of Insulin (Hcc) Hyperlipidemia With Target Ldl Less Than 100 Bph With Obstruction/Lower Urinary Tract Symptoms Essential Hypertension LONI (obstructive sleep apnea) mild. Obesity, Class I, Bmi 30-34.9 Tubular Adenoma of Colon Obesity, Class II, Bmi 35-39.9 Erythema Intertrigo Current Outpatient Medications Medication Sig tamsulosin (FLOMAX) 0.4 mg Take 1 capsule by mouth daily at bedtime. metFORMIN (GLUCOPHAGE) 500 mg tablet Take 2 tablets by mouth two times a day with meals. lisinopril 2.5 mg tablet Take 1 tablet by mouth once daily. atorvastatin (LIPITOR) 10 mg tablet Take 1 tablet by mouth daily at bedtime. dulaglutide (TRULICITY) 4.5 mg/0.5 mL pen injector Inject 4.5 mg subcutaneously one time a week. Per Endo. empagliflozin (JARDIANCE) 25 mg tablet Take 1 tablet by mouth once daily. Per Endo. Omeprazole Magnesium (PRILOSEC OTC) 20 mg tablet Take 1 tablet by mouth daily before breakfast. 1/2 hr before meal. blood sugar diagnostic (ONE TOUCH ULTRA TEST) test strip Test blood sugar(s) one time daily. Dx: 250.00. Insulin: No Lancets (ONE TOUCH DELICA) lancets Test blood sugar(s) once daily. Dx: 250.00. Insulin: No MULTIVITAMIN TAB Take one(1) tablet daily. No current facility-administere d medications for this visit. Objective BP 120/70 (BP Site: Left Arm, BP Position: Sitting, BP Cuff Size: Large Adult) Pulse 96 Temp 36.9 ?C (98.4 ?F) (Temporal) Resp 16 Wt 100.7 kg (222 lb 0.1 oz) BMI 32.78 kg/m? Physical Exam Musculoskeletal: Comments: Left thumb pad with dried wound. Stitches intact. These were removed without difficulty, and no bleeding or drainage was noted. Thumb moving normally. Band Aid applied. Assessment and Plan 1. Visit for suture removal - ICD9: V58.32, ICD10: Z48.02 Sutures removed without difficulty. Patient tolerated this well. No bleeding or oozing noted Wound care instructions given. Return if needed. Les Viramontes MD Allergies As of Date: 02/04/2024 (No Known Allergies) Date Reviewed: 02/04/2024 Reviewed by: Jenna Pinon LPN - Fully Assessed Reason for Visit: Suture Removal [105] Primary Visit Diagnosis:Visit for suture removal [Z48.02] Prescriptions as of 02/15/2024 - tamsulosin (FLOMAX) 0.4 mg Take 1 capsule by mouth daily at bedtime. - metFORMIN (GLUCOPHAGE) 500 mg tablet Take 2 tablets by mouth two times a day with meals. - lisinopril 2.5 mg tablet Take 1 tablet by mouth once daily. - atorvastatin (LIPITOR) 10 mg tablet Take 1 tablet by mouth daily at bedtime. - dulaglutide (TRULICITY) 4.5 mg/0.5 mL pen injector Inject 4.5 mg subcutaneously one time a week. Per Endo. - empagliflozin (JARDIANCE) 25 mg tablet Take 1 tablet by mouth once daily. Per Endo. - Omeprazole Magnesium (PRILOSEC OTC) 20 mg tablet Take 1 tablet by mouth daily before breakfast. 1/2 hr before meal. - blood sugar diagnostic (ONE TOUCH ULTRA TEST) test strip Test blood sugar(s) one time daily. Dx: 250.00. Insulin: No - Lancets (ONE TOUCH DELICA) lancets Test blood sugar(s) once daily. Dx: 250.00. Insulin: No - MULTIVITAMIN TAB Take one(1) tablet daily. Problem List As Of Date 02/04/2024 Noted Resolved ESOPHAGEAL REFLUX [K21.9] 07/11/2005 Depressive disorder, not elsewhere classified [*07/11/2005 10/30/2014 Diarrhea [R19.7] 01/07/2008 07/26/2009 Obesity, unspecified [E66.9] 01/07/2008 12/25/2017 Dysmetabolic syndrome [E88.810] 11/12/2009 10/19/2011 Type 2 diabetes mellitus with diabetic neuropat*12/26/2018 Hyperlipidemia with target LDL less than 100 [E*04/23/2012 BPH with obstruction/lower urinary tract sympto*11/11/2013 Essential hypertension [I10] 08/05/2015 Obesity, Class II, BMI 35-39.9 [E66.812] 12/25/2017 10/01/2020 LONI (obstructive sleep apnea) mild. [G47.33] 12/25/2017 Obesity, Class I, BMI 30-34.9 [E66.811] 10/01/2020 Tubular adenoma of colon [D12.6] 11/19/2014 Obesity, Class II, BMI 35-39.9 [E66.812] 03/10/2022 Erythema intertrigo [L30.4] 03/10/2022 Encounter Status:Closed by LES VIRAMONTES on (more content not included)... Normal [facility] CNOVon 01-26-2024 CNOV Office Visit (UCWSTR) LELE PASTRANA ([id number]) 1960 M Date Time Provider Department 01/26/24 2:30 PM [facility] During your visit today, we recorded the following information about you: Temperature Pulse Respiration Blood pressure 97.2 degrees 100/minute 16/minute 120/72 Weight 100.7 kg Clarissa Suresh PA 01/26/2024 3:04 PM Signed This note was created using NoteWriter. Subjective Lele Denis Pastrana is a 63 year old male. HPI 63-year-old male presents for laceration to left thumb. Patient states that he was cutting wood and accidentally cut his thumb with his band saw. He states that this occurred just prior to arrival. He is not on any blood thinners. Last tetanus was in 2021. Still able to move the finger. No numbness or tingling. He did wash it out with water at home. No other complaint. PAST MEDICAL HISTORY Diagnosis Date Asthma ASTHMA UNSPECIFIED 06/12/2005 likely GERD related. 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 12/25/2017 Tubular adenoma of colon 11/19/2014 Type 2 diabetes mellitus without complication (HCC) 06/27/2011 PAST SURGICAL HISTORY Procedure Laterality Date COLONOSCOPY FLX DX W/COLLJ SPEC WHEN PFRMD 11/19/2014 Colonoscopy COLONOSCOPY FLX DX W/COLLJ SPEC WHEN PFRMD 02/23/2021 EXCISION PILONIDAL CYST/SINUS SIMPLE 04/1980 HERNIA REPAIR HX 1964 RPR 1ST INGUN HRNA AGE 5 YRS/> REDUCIBLE 1965 Hernia repair, inguinal ALLERGIES Patient has no known allergies. MEDICATIONS tamsulosin (FLOMAX) 0.4 mg Take 1 capsule by mouth daily at bedtime. metFORMIN (GLUCOPHAGE) 500 mg tablet Take 2 tablets by mouth two times a day with meals. lisinopril 2.5 mg tablet Take 1 tablet by mouth once daily. atorvastatin (LIPITOR) 10 mg tablet Take 1 tablet by mouth daily at bedtime. dulaglutide (TRULICITY) 4.5 mg/0.5 mL pen injector Inject 4.5 mg subcutaneously one time a week. Per Endo. empagliflozin (JARDIANCE) 25 mg tablet Take 1 tablet by mouth once daily. Per Endo. Omeprazole Magnesium (PRILOSEC OTC) 20 mg tablet Take 1 tablet by mouth daily before breakfast. 1/2 hr before meal. blood sugar diagnostic (ONE TOUCH ULTRA TEST) test strip Test blood sugar(s) one time daily. Dx: 250.00. Insulin: No Lancets (ONE TOUCH DELICA) lancets Test blood sugar(s) once daily. Dx: 250.00. Insulin: No MULTIVITAMIN TAB Take one(1) tablet daily. cephALEXin (KEFLEX) 500 mg capsule Take 1 capsule by mouth four times daily for 5 days. FAMILY HISTORY Problem Relation Age of Onset Heart Mother pacemaker Cancer Mother Bill cell carcinoma Liver Cancer Mother Hip Fracture Mother Diabetes Father Coronary Artery Disease Father onset age 65, CABG Pneumonia Father Heart Brother arrhythmia, ablated other (benign prostate hypertrophy) Brother Pneumonia Brother Legionella, RSV Hypertension Brother Diabetes Brother None Brother Social History Tobacco Use Smoking status: Never Smokeless tobacco: Never Vaping Use Vaping status: Never Used Substance Use Topics Alcohol use: No Drug use: No Review of Systems Constitutional: Negative for chills and fever. HENT: Negative for congestion and sore throat. Respiratory: Negative for cough and shortness of breath. Gastrointestinal: Negative for diarrhea and vomiting. Skin: Positive for wound. Objective BP 120/72 Pulse 100 Temp 36.2 ?C (97.2 ?F) Resp 16 Wt 100.7 kg (222 lb 0.1 oz) SpO2 96% BMI 32.78 kg/m? Physical Exam Vitals and nursing note reviewed. Constitutional: General: He is not in acute distress. Appearance: Normal appearance. He is not toxic-appearing. Cardiovascular: Rate and Rhythm: Normal rate and regular rhythm. Musculoskeletal: Left hand: Laceration present. No tenderness or bony tenderness. Normal range of motion. Normal capillary refill. Normal pulse. Hands: Comments: Approximately 2 cm laceration over the palmar surface of the distal phalanx of the left thumb. Active bleeding noted. Normal ROM of the thumb. Normal sensation. Cap refill less than 2 seconds. No nail involvement. No foreign body seen. Skin: General: Skin is warm and dry. Neurological: Mental Status: He is alert. Procedure: UNIVERSAL PROTOCOL / SAFETY CHECKLIST Procedure to be Performed: Suturing Sign In: A Moment of CARE was completed. Per (more content not included)... Normal [facility] CBC W/Diff, Automatedon 12-06 Absolute Lymph 3.14 X10 3/uL Normal 0.83-4.51 [facility] Comment on above: Performed By: #### L 503.6550, L503.0105, L500.4100, L100.0100, L500.4050, L501.9520, L506.1000 #### [facility] [address] [place], [address] Absolute Neut 4.0 X10 3/uL Normal 2.0-7.7 [facility] Comment on above: Performed By: #### L 503.6550, L503.0105, L500.4100, L100.0100, L500.4050, L501.9520, L506.1000 #### [facility] [address], [address] Basophils/100 WBC (Bld) 0.6 % Normal 0-1 [facility] Comment on above: Performed By: #### L 503.6550, L503.0105, L500.4100, L100.0100, L500.4050, L501.9520, L506.1000 #### [facility] [address] [place], [address] Eosinophils/100 WBC (Bld) 3.2 % Normal 0-5 [facility] Comment on above: Performed By: #### L 503.6550, L503.0105, L500.4100, L100.0100, L500.4050, L501.9520, L506.1000 #### [facility] [address] [place], [address] Erythrocyte distribution width (RBC) [Ratio] 12.2 % Normal 11.6-14.6 [facility] Comment on above: Performed By: #### L 503.6550, L503.0105, L500.4100, L100.0100, L500.4050, L501.9520, L506.1000 #### [facility] [address] [place], [address] Hematocrit (Bld) [Volume fraction] 47.7 % Normal 40-54 [facility] Comment on above: Performed By: #### L 503.6550, L503.0105, L500.4100, L100.0100, L500.4050, L501.9520, L506.1000 #### [facility] [address] [place], [address] Hemoglobin (Bld) [Mass/Vol] 15.8 g/dL Normal 13.0-16.5 [facility] Comment on above: Performed By: #### L 503.6550, L503.0105, L500.4100, L100.0100, L500.4050, L501.9520, L506.1000 #### [facility] [address], [address] IG% 0.400 Normal 0.0-0.9 [facility] Comment on above: Result Comment: IG% - Immature Granulocytes (promyelocytes, myelocytes and metamyelocytes) > 1% indicates that a LEFT SHIFT is Present. Performed By: #### L 503.6550, L503.0105, L500.4100, L100.0100, L500.4050, L501.9520, L506.1000 #### [facility] [address] [place], [address] Lymphocytes/100 WBC (Bld) 38.2 % Normal 19-41 [facility] Comment on above: Performed By: #### L 503.6550, L503.0105, L500.4100, L100.0100, L500.4050, L501.9520, L506.1000 #### [facility] [address] [place], [address] MCH (RBC) [Entitic mass] 30.1 pg Normal 27.0-32.0 [facility] Comment on above: Performed By: #### L 503.6550, L503.0105, L500.4100, L100.0100, L500.4050, L501.9520, L506.1000 #### [facility] [address], [address] MCHC (RBC) [Mass/Vol] 33.1 g/dL Normal 32-36 [facility] Comment on above: Performed By: #### L 503.6550, L503.0105, L500.4100, L100.0100, L500.4050, L501.9520, L506.1000 #### [facility] [address] [place], [address] MCV (RBC) [Entitic vol] 90.9 fL Normal 80-94 [facility] Comment on above: Performed By: #### L 503.6550, L503.0105, L500.4100, L100.0100, L500.4050, L501.9520, L506.1000 #### [facility] [address] [place], [address] Monocytes/100 WBC (Bld) 9.0 % Normal 0-10 [facility] Comment on above: Performed By: #### L 503.6550, L503.0105, L500.4100, L100.0100, L500.4050, L501.9520, L506.1000 #### [facility] [address] [place], [address] Neutrophils/100 WBC (Bld) 48.6 % Normal 47-70 [facility] Comment on above: Performed By: #### L 503.6550, L503.0105, L500.4100, L100.0100, L500.4050, L501.9520, L506.1000 #### [facility] [address] [place], [address] Nucleated RBC (Bld) [#/Vol] 0 10*3/uL Normal 0-5 [facility] Comment on above: Performed By: #### L 503.6550, L503.0105, L500.4100, L100.0100, L500.4050, L501.9520, L506.1000 #### [facility] [address] [place], [address] Platelet mean volume (Bld) [Entitic vol] 10.2 fL Normal 6.2-12.0 [facility] Comment on above: Performed By: #### L 503.6550, L503.0105, L500.4100, L100.0100, L500.4050, L501.9520, L506.1000 #### [facility] [address] [place], [address] Platelets (Bld) [#/Vol] 299 10*3/uL Normal 150-450 [facility] Comment on above: Performed By: #### L 503.6550, L503.0105, L500.4100, L100.0100, L500.4050, L501.9520, L506.1000 #### [facility] [address] [place], [address] RBC (Bld) [#/Vol] 5.25 10*6/uL Normal 4.6-6.2 [facility] Comment on above: Performed By: #### L 503.6550, L503.0105, L500.4100, L100.0100, L500.4050, L501.9520, L506.1000 #### [facility] [address] [place], [address] RDW SD 40.6 fl Normal 35.1-43.9 [facility] Comment on above: Performed By: #### L 503.6550, L503.0105, L500.4100, L100.0100, L500.4050, L501.9520, L506.1000 #### [facility] [address] [place], [address] WBC (Bld) [#/Vol] 8.2 10*3/uL Normal 4.4-11.0 [facility] Comment on above: Performed By: #### L 503.6550, L503.0105, L500.4100, L100.0100, L500.4050, L501.9520, L506.1000 #### [facility] [address] [place], [address] Comprehensive Metabolic Prof ilon 01-01-2024 Albumin [Mass/Vol] 3.6 g/dL Normal 3.2-5.0 [facility] Comment on above: Performed By: #### L 503.6550, L503.0105, L500.4100, L100.0100, L500.4050, L501.9520, L506.1000 #### [facility] [address] [place], [address] Albumin/Globulin [Mass ratio] 0.9 {ratio} Normal 0.9-2.4 [facility] Comment on above: Performed By: #### L 503.6550, L503.0105, L500.4100, L100.0100, L500.4050, L501.9520, L506.1000 #### [facility] [address], [address] ALK P 106 U/L Normal 45-117 [facility] Comment on above: Performed By: #### L 503.6550, L503.0105, L500.4100, L100.0100, L500.4050, L501.9520, L506.1000 #### [facility] [address] [place], [address] ALT [Catalytic activity/Vol] 35 U/L Normal 16-61 [facility] Comment on above: Performed By: #### L 503.6550, L503.0105, L500.4100, L100.0100, L500.4050, L501.9520, L506.1000 #### [facility] [address] [place], [address] AST [Catalytic activity/Vol] 23 U/L Normal 15-37 [facility] Comment on above: Performed By: #### L 503.6550, L503.0105, L500.4100, L100.0100, L500.4050, L501.9520, L506.1000 #### [facility] [address] [place], [address] Bilirubin [Mass/Vol] 0.60 mg/dL Normal 0.20-1.00 [facility] Comment on above: Result Comment: For patients on eltrombopag therapy, use of Dimension [place] TBIL is not recommended. Performed By: #### L 503.6550, L503.0105, L500.4100, L100.0100, L500.4050, L501.9520, L506.1000 #### [facility] [address] [place], [address] BUN/CRE 13.8 RATIO Normal 10-20 [facility] Comment on above: Performed By: #### L 503.6550, L503.0105, L500.4100, L100.0100, L500.4050, L501.9520, L506.1000 #### [facility] [address] [place], [address] CA,Total 9.4 mg/dL Normal 8.5-10.1 [facility] Comment on above: Performed By: #### L 503.6550, L503.0105, L500.4100, L100.0100, L500.4050, L501.9520, L506.1000 #### [facility] [address] [place], [address] Chloride [Moles/Vol] 101 mmol/L Normal 98-107 [facility] Comment on above: Performed By: #### L 503.6550, L503.0105, L500.4100, L100.0100, L500.4050, L501.9520, L506.1000 #### [facility] [address] [place], [address] CO2 [Moles/Vol] 26.0 mmol/L Normal 21.0-32.0 [facility] Comment on above: Performed By: #### L 503.6550, L503.0105, L500.4100, L100.0100, L500.4050, L501.9520, L506.1000 #### [facility] [address] [place], [address] Creatinine [Mass/Vol] 0.94 mg/dL Normal 0.70-1.30 [facility] Comment on above: Result Comment: The validity of the calculated GFR GFRAA in patients over 70 years has not been determined. Clinical correlation is essential. Performed By: #### L 503.6550, L503.0105, L500.4100, L100.0100, L500.4050, L501.9520, L506.1000 #### [facility] [address] [place], [address] EST GFR - AA 103 mL/min Normal >60 [facility] Comment on above: Result Comment: Afri can [place] GFR Calc Performed By: #### L 503.6550, L503.0105, L500.4100, L100.0100, L500.4050, L501.9520, L506.1000 #### [facility] [address] [place], [address] GAP 9 Normal 5-15 [facility] Comment on above: Performed By: #### L 503.6550, L503.0105, L500.4100, L100.0100, L500.4050, L501.9520, L506.1000 #### [facility] [address] [place], [address] GFR/1.73 sq M.predicted among non-blacks MDRD (S/P/Bld) [Vol rate/Area] 85 mL/min/{1.73_m2} Normal >60 [facility] Comment on above: Result Comment: Non- GFR Calc Performed By: #### L 503.6550, L503.0105, L500.4100, L100.0100, L500.4050, L501.9520, L506.1000 #### [facility] [address] [place], [address] Globulin (S) [Mass/Vol] 3.8 g/dL Normal 2.2-4.2 [facility] Comment on above: Performed By: #### L 503.6550, L503.0105, L500.4100, L100.0100, L500.4050, L501.9520, L506.1000 #### [facility] [address] [place], [address] Glucose [Mass/Vol] 157 mg/dL High 74-106 [facility] Comment on above: Result Comment: Fast ing Glucose result greater than or equal to 126 mg/dL suggests DIABETES MELLITUS per A.D.A. criteria. Performed By: #### L 503.6550, L503.0105, L500.4100, L100.0100, L500.4050, L501.9520, L506.1000 #### [facility] [address] [place], [address] Potassium [Moles/Vol] 4.2 mmol/L Normal 3.5-5.1 [facility] Comment on above: Performed By: #### L 503.6550, L503.0105, L500.4100, L100.0100, L500.4050, L501.9520, L506.1000 #### [facility] [address] [place], [address] Sodium [Moles/Vol] 136 mmol/L Normal 136-145 [facility] [place] Comment on above: Performed By: #### L 503.6550, L503.0105, L500.4100, L100.0100, L500.4050, L501.9520, L506.1000 #### [facility] [address] [place], [address] T PROT 7.4 g/dL Normal 6.4-8.2 [facility] Comment on above: Performed By: #### L 503.6550, L503.0105, L500.4100, L100.0100, L500.4050, L501.9520, L506.1000 #### [facility] [address] [place], [address] Urea nitrogen [Mass/Vol] 13 mg/dL Normal 7-18 [facility] Comment on above: Performed By: #### L 503.6550, L503.0105, L500.4100, L100.0100, L500.4050, L501.9520, L506.1000 #### [facility] [address] [place], [address] Ferritinon 01-01-2024 Ferritin [Mass/Vol] 28 ng/mL Normal 26-388 [facility] Comment on above: Performed By: #### L 503.6550, L503.0105, L500.4100, L100.0100, L500.4050, L501.9520, L506.1000 #### [facility] [address] [place], [address] Lipid Profileon 01-01-2024 Cholesterol [Mass/Vol] 136 mg/dL Normal [address] [facility] Comment on above: Result Comment: <200 mg/dL Desirable 200-240 mg/dL Borderline >240 mg/dL High Risk Performed By: #### L 503.6550, L503.0105, L500.4100, L100.0100, L500.4050, L501.9520, L506.1000 #### [facility] [address] [place], [address] Cholesterol in HDL [Mass/Vol] 51 mg/dL Normal [facility] Comment on above: Result Comment: The drugs N-Acetylcysteine and Metamizole may falsely depress this assay. Reference Range HDL <40 mg/dL Low HDL Cholesterol HDL >or= 60 mg/dL High HDL Cholesterol Performed By: #### L 503.6550, L503.0105, L500.4100, L100.0100, L500.4050, L501.9520, L506.1000 #### [facility] [address] [place], [address] Cholesterol in LDL [Mass/Vol] 48 mg/dL Normal 0-130 [facility] Comment on above: Performed By: #### L 503.6550, L503.0105, L500.4100, L100.0100, L500.4050, L501.9520, L506.1000 #### [facility] [address] [place], [address] Cholesterol in VLDL [Mass/Vol] 37 mg/dL Normal 5-40 [facility] Comment on above: Performed By: #### L 503.6550, L503.0105, L500.4100, L100.0100, L500.4050, L501.9520, L506.1000 #### [facility] [address] [place], [address] Triglyceride [Mass/Vol] 184 mg/dL Normal [facility] Comment on above: Result Comment: The drugs N-Acetylcysteine and Metamizole may falsely depress this assay. Serum Triglycerides Reference Interval Normal <150 mg/dL Borderline high 150 - 199 mg/dL High 200 - 499 mg/dL Very High > or = 500 mg/dL Performed By: #### L 503.6550, L503.0105, L500.4100, L100.0100, L500.4050, L501.9520, L506.1000 #### [facility] [address] [place], [address] Thyroid Stim Hormone (TSH)on 01-01-2024 TSH 2.430 uIU/mL Normal 0.358-3.740 [facility] Comment on above: Performed By: #### L 503.6550, L503.0105, L500.4100, L100.0100, L500.4050, L501.9520, L506.1000 #### [facility] [address] [place], [address] Vitamin B12on 01-01-2024 Cobalamin (Vitamin B12) [Mass/Vol] 1375 pg/mL High 211-911 [facility] Comment on above: Performed By: #### L 503.6550, L503.0105, L500.4100, L100.0100, L500.4050, L501.9520, L506.1000 #### [facility] [address] [place], [address] Vitamin D,25 Hydroxyon 12-31 Vitamin D 25-OH 46.0 ng/mL Normal [facility] Comment on above: Result Comment: Zoila min D 25(OH) Status Range Deficiency <20 ng/mL (50nmol/L) Insufficiency 20 - 30 ng/mL (50 - 75 nmol/L) Sufficiency 30 - 100 ng/mL (75 - 250 nmol/L) Toxicity >100 ng/mL (>250 nmol/L) Performed By: #### L 503.6550, L503.0105, L500.4100, L100.0100, L500.4050, L501.9520, L506.1000 #### [facility] [address] [place], [address] Endocrinology Visit Reporton 12-24-2023 Endocrinology Visit Report [facility] [address] [place] [address]. [address] [place] [address] OFFICE VISIT Date of Service: 12/24/23 MR#: [id number] Acct: [id number] Name: LELE PASTRANA Rep #: [id number] : 1960 Provider: BEN power Age/Sex: 63/M Location: [facility] Status: Signed Intake Vital Signs 06/25/23 14:14 12/24/23 14:18 Height 5 ft 9 in 5 ft 9 in Weight: 240 lb 4 oz 224 lb BMI 35.4 33.0 BP 110/76 110/86 H Blood Pressure Location Lt brachial Lt brachial Position Sitting Sitting Respiration 16 16 Pulse 70 82 Pulse Source Monitor Monitor Temp 98.7 F 96.8 F L Temp Source Temporal Temporal Pulse Oximetry (%) 99 98 Oxygen Delivery Method room air room air Intake Visit Reasons: 6 M FU Chief Complaint: f/u diabetes Accompanied by: Self Is patient in pain?: No Allergies Seasonal Allergies: Uncoded Allergy (Verified 12/24/23 14:15) Other Medications ???Medication ???Instructions ???Recorded ???Confirmed ???Type multivitamin (Multiple Vitamins 1 ea PO DAILY 08/22/16 12/24/23 History tablet) atorvastatin 10 mg tablet 10 mg PO QHS 10/13/20 12/24/23 History tamsulosin 0.4 mg capsule 0.4 mg PO QHS 10/13/20 12/24/23 History pen needle, diabetic 32 gauge x #100 ea 10/26/21 12/12/22 Rx /32 (BD Ultra-Fine Wendy Pen Needle) omeprazole magnesium 20 mg 20 mg PO DAILY 10/31/22 12/24/23 History tablet,delayed release (Prilosec OTC) lisinopril 5 mg tablet 2.5 mg PO DAILY 06/25/23 12/24/23 History empagliflozin 25 mg tablet 25 mg PO DAILY #90 tabs 10/03/23 12/24/23 Rx (Jardiance) metformin 1,000 mg tablet 1,000 mg PO BIDWMEAL #180 tabs 10/06/23 12/24/23 Rx dulaglutide 4.5 mg/0.5 mL 4.5 mg (0.5 mL) subcut QWEEK #6 mL 11/15/23 12/24/23 Rx subcutaneous pen injector (Trulicity) cyanocobalamin (vitamin B-12) 1,000 mcg PO DAILY 12/24/23 12/24/23 History 1,000 mcg tablet Have you fallen in the past year?: No PFSH Medical History Obesity Polyneuropathy due to type 2 diabetes mellitus Diabetes GERD (gastroesophageal reflux disease) Neuropathy Asthma Acute bronchitis Sepsis Hyperlipidemia Hypertension Type 2 diabetes mellitus Family History Father CVA (cerebral vascular accident) Diabetes Heart disease Myocardial infarction, Onset Age: 64 Mother Diabetes Grandfather Diabetes Other High cholesterol Hypertension Skin cancer Social History Smoking Status: Never smoker second hand exposure: No alcohol intake: never substance use type: does not use caffeine: No what type of physical activity do you participate in: none HPI HPI Chief Complaint: f/u diabetes Details: LELE PASTRANA, is a 63 M who presents to the office today for evaluation and management of diabetes. A1C today is 8.1%, increased from 06/25/23 at 7.6%. He has lost 16 lbs since that time. Currently taking metformin 1 gm BID with food, Trulicity 4.5 mg qweek- tolerating well, and Jardiance 25 mg once daily. He has not been routinely checking his blood sugars. He reports significant fatigue over the last several months and has not been as active as usual. Partial routine labs completed with PCP 09/17/23: GFR 98 A1C 8.1% - M:C Regarding fatigue- he reports he typically has to take melatonin HS to sleep. Even if he gets adequate sleep at night he continues to have day time fatigue. Stop Bang assessment: 11/11 Denies any dark/tarry stools. Colonoscopy utd. He hasn't had CBC since 2021. Denies any other acute concerns. ROS Const Constitutional: Positive for fatigue Resp Respiratory: Positive for shortness of breath sob: SOB with activity (exertion) Endo Endocrine: Positive for fatigue Exam Const General: cooperative, comfortable, no acute distress and ill appearing chronically Nutritional Appearance: obese Orientation: alert, awake and oriented x3 HENMT Head: normal to inspection Ears: hearing grossly normal bilaterally Nose: external nose normal Face and sinus: normal facial exam Eyes General: appearance normal, both eyes and all related structures Alignment and Position: alignment normal Sclera: sclerae normal Neck Neck: normal visual inspection Carotids: normal carotid upstroke Other: 18 cm neck circumference Chest Chest palpation inspection: normal inspection of the chest Resp Effort Inspection: normal respiratory effort, able to speak in complete sentences, symmetric chest movement, normal respiratory pattern, no audible wheezes and no cough Auscultation: Bilateral: Clear to Auscultation Cardio Rate: regular rate Rhythm: regular rhythm Heart S (more content not included)... Normal [facility] XR Chest PA and Lateralon IMPRESSION: No acute radiographic abnormality. Plant Reliability Engineer: RUBY Transcribe Date/Time: Oct 16 2022 12:51P Dictated by : DOUG BECKETT MD This examination was interpreted and the report reviewed and electronically signed by: DOUG BECKETT MD on Oct 16 2022 12:52PM [facility] DIVISION OF RADIOLOGY * * *Final Report* * * DATE OF EXAM: Oct 16 2022 12:47PM WOX [id number] - XR CHEST 2V FRONTAL/LAT / PROCEDURE REASON: Acute cough * * * * Physician Interpretation * * * * EXAMINATION: CHEST RADIOGRAPH (2 VIEW FRONTAL & LATERAL) CLINICAL HISTORY: Acute cough MQ: XC2_6 EXAM DATE/TIME: 10/16/2022 12:47 PM COMPARISON: Chest x-ray dated July 15, 2019 RESULT: Lines, tubes, and devices: None. Lungs and pleura: No consolidation. No lung mass. No pleural effusion. No pneumothorax. Cardiomediastinal silhouette: Normal cardiomediastinal silhouette. Bones and soft tissues: Degenerative changes are present within the thoracic spine. DIVISION OF RADIOLOGY Provider, [facility] - 10/16/2022 * * *Final Report* * * DATE OF EXAM: Oct 16 2022 12:47PM WOX [id number] - XR CHEST 2V FRONTAL/LAT / PROCEDURE REASON: Acute cough * * * * Physician Interpretation * * * * EXAMINATION: CHEST RADIOGRAPH (2 VIEW FRONTAL & LATERAL) CLINICAL HISTORY: Acute cough MQ: XC2_6 EXAM DATE/TIME: 10/16/2022 12:47 PM COMPARISON: Chest x-ray dated July 15, 2019 RESULT: Lines, tubes, and devices: None. Lungs and pleura: No consolidation. No lung mass. No pleural effusion. No pneumothorax. Cardiomediastinal silhouette: Normal cardiomediastinal silhouette. Bones and soft tissues: Degenerative changes are present within the thoracic spine. IMPRESSION IMPRESSION: No acute radiographic abnormality. Plant Reliability Engineer: PSCB Transcribe Date/Time: Oct 16 2022 12:51P Dictated by : DOUG BECKETT MD This examination was interpreted and the report reviewed and electronically signed by: DOUG BECKETT MD on Oct 16 2022 12:52PM EST [facility] Radiology Study observation (narrative) Kyra pack [facility] XR Chest PA and LateralOrder ed By: [facility] Provider on 10-16-2022 [facility] - Hematology and Cell countson 08-21-2022 HbA1c (Bld) [Mass fraction] 9.6 % [facility] Visit: dyspneaon 12-05 Documentation of current medications (procedure) Done Invalid Interpretation Code [facility] Work Phone: Protein mass conc Done [facility] Work Phone: Tobacco smoking status [facility] Never [facility] Work Phone: Tobacco smoking status [facility] Never smoker [facility] Work Phone: Tobacco use [facility] Never smoker Invalid Interpretation Code [facility] Work Phone: Office Visit: [facility] 08-29-2016 Fall risk assessment No [facility] Work Phone: Protein mass conc Done [facility] Work Phone: [phone] Tobacco smoking status [facility] Never [facility] Work Phone: [phone] Tobacco smoking status [facility] Never smoker [facility] Work Phone: Vital Signs Date Time Vital Sign Value Performing Clinician Faci lity 11-28-2024 12:22-0400 Body mass index (BMI) [Ratio] 32.5 kg/m2 Dr. Les Viramontes MD Work Phone: 9(911)721-259247 [place] [address] 11-28-2024 12:22-0400 Body temperature 97.3 [degF] Dr. Les Viramontes MD Work Phone: 0(913)205-599447 [place] [address] 11-28-2024 12:22-0400 Body weight 99.[address] Les Viramontes MD Work Phone: 2(632)845-775647 [place] [address] 11-28-2024 12:22-0400 Diastolic blood pressure 76 mm[Hg] Dr. Les Viramontes MD Work Phone: 9(229)533-280147 [place] [address] 11-28-2024 12:22-0400 Heart rate 76 /min Dr. Les Viramontes MD Work Phone: 6(928)283-049447 [place] [address] 11-28-2024 12:22-0400 Respiratory rate 16 /min Dr. Les Viramontes MD Work Phone: 3(478)815-304547 [place] [address] 11-28-2024 12:22-0400 SaO2% (BldA) [Mass fraction] 96 % Dr. Les Viramontes MD Work Phone: 9(050)453-173247 [place] [address] 11-28-2024 12:22-0400 Systolic blood pressure 128 mm[Hg] Dr. Les Viramontes MD Work Phone: 6(746)524-260647 [place] [address] 11-05-2024 14:37-0400 Body height 175.[address] Les Viramontes MD Work Phone: 1(871)541-130547 [place] [address] 11-05-2024 14:37-0400 Body mass index (BMI) [Ratio] 32.6 kg/m2 Dr. Les Viramontes MD Work Phone: 2(363)172-774147 [place] [address] 11-05-2024 14:37-0400 Body weight 100.[address] Les Viramontes MD Work Phone: 4(760)680-942647 [place] [address] 11-05-2024 14:37-0400 Diastolic blood pressure 78 mm[Hg] Dr. Les Viramontes MD Work Phone: 6(096)952-744947 [place] [address] 11-05-2024 14:37-0400 Heart rate 85 /min Dr. eLs Viramontes MD Work Phone: 8(331)778-666147 [place] [address] 11-05-2024 14:37-0400 SaO2% (BldA) [Mass fraction] 94 % Dr. Les Viramontes MD Work Phone: 2(587)324-676047 [place] [address] 11-05-2024 14:37-0400 Systolic blood pressure 123 mm[Hg] Dr. Les Viramontes MD Work Phone: 8(227)980-524647 [place] [address] 09-16-2024 08:17-0400 Body weight 97.[address] Les Viramontes MD Work Phone: 3(437)774-585947 [place] [address] 09-16-2024 08:17-0400 Heart rate 86 /min Dr. Les Viramontes MD Work Phone: 7(422)062-768947 [place] [address] 09-16-2024 08:17-0400 SaO2% (BldA) [Mass fraction] 96 % Dr. Les Viramontes MD Work Phone: 3(063)089-452147 [place] [address] 08-15-2024 09:54-0400 Body mass index (BMI) [Ratio] 32.1 kg/m2 Dr. Les Viramontes MD Work Phone: 7(979)141-815247 [place] [address] 08-15-2024 09:54-0400 Body temperature 97.3 [degF] Dr. Les Viramontes MD Work Phone: 5(328)857-163747 [place] [address] 08-15-2024 09:54-0400 Body weight 98.[address] Les Viramontes MD Work Phone: 0(775)079-297247 [place] [address] 08-15-2024 09:54-0400 Diastolic blood pressure 77 mm[Hg] Dr. Les Viramontes MD Work Phone: 0(123)164-611847 [place] [address] 08-15-2024 09:54-0400 Heart rate 90 /min Dr. Les Viramontes MD Work Phone: 0(723)317-875947 [place] [address] 08-15-2024 09:54-0400 Respiratory rate 18 /min Dr. Les Viramontes MD Work Phone: 6(068)234-814547 [place] [address] 08-15-2024 09:54-0400 SaO2% (BldA) [Mass fraction] 94 % Dr. Les Viramontes MD Work Phone: 1(153)157-718247 [place] [address] 08-15-2024 09:54-0400 Systolic blood pressure 118 mm[Hg] Dr. Les Viramontes MD Work Phone: 3(658)891-656847 [place] [address] 08-06-2024 14:49-0400 Body height 175.[address] Les Viramontes MD Work Phone: 4(048)283-613047 [place] [address] 08-06-2024 14:49-0400 Body mass index (BMI) [Ratio] 32.8 kg/m2 Dr. Les Viramontes MD Work Phone: 0(372)668-568047 [place] [address] 08-06-2024 14:49-0400 Body temperature 97.3 [degF] Dr. Les Viramontes MD Work Phone: 5(865)068-511747 [place] [address] 08-06-2024 14:49-0400 Body weight 100.[address] Les Viramontes MD Work Phone: 2(949)073-303147 [place] [address] 08-06-2024 14:49-0400 Diastolic blood pressure 74 mm[Hg] Dr. Les Viramontes MD Work Phone: 1(523)967-854847 [place] [address] 08-06-2024 14:49-0400 Heart rate 80 /min Dr. Les Viramontes MD Work Phone: 3(940)664-724147 [place] [address] 08-06-2024 14:49-0400 Respiratory rate 14 /min Dr. Les Viramontes MD Work Phone: 8(198)857-435047 [place] [address] 08-06-2024 14:49-0400 SaO2% (BldA) [Mass fraction] 96 % Dr. Les Viramontes MD Work Phone: 3(671)264-944947 [place] [address] 08-06-2024 14:49-0400 Systolic blood pressure 115 mm[Hg] Dr. Les Viramontes MD Work Phone: [facility] 06-09-2024 20:00-0500 Body temperature 97.6 [degF] Dr. Les Viramontes MD Work Phone: 2(085)501-843229 [place] [address] 06-09-2024 20:00-0500 Diastolic blood pressure 84 mm[Hg] Dr. Les Viramontes MD Work Phone: 1(972)863-927729 [place] [address] 06-09-2024 20:00-0500 Heart rate 67 /min Dr. Les Viramontes MD Work Phone: 6(584)844-624147 [place] [address] 06-09-2024 20:00-0500 Respiratory rate 18 /min Dr. Les Viramontes MD Work Phone: 5(712)516-457547 [place] [address] 06-09-2024 20:00-0500 SaO2% (BldA) [Mass fraction] 98 % Dr. Les Viramontes MD Work Phone: 1(510)705-251647 [place] [address] 06-09-2024 20:00-0500 Systolic blood pressure 112 mm[Hg] Dr. Les Viramontes MD Work Phone: 1(656)481-526247 [place] [address] 06-09-2024 16:03-0500 Body mass index (BMI) [Ratio] 31 kg/m2 Dr. Les Viramontes MD Work Phone: 4(833)604-525047 [place] [address] 06-09-2024 16:03-0500 Body weight 95.[address] Les Viramontes MD Work Phone: 0(681)033-591229 [place] [address] 04-14-2024 14:01-0500 Body mass index (BMI) [Ratio] 32.72 kg/m2 Les Viramontes MD Work Phone: [facility] 04-14-2024 14:01-0500 Body temperature 97.9 [degF] Les Viramontes MD Work Phone: [facility] 04-14-2024 14:01-0500 Body weight 100.5 kg Les Viramontes MD Work Phone: [facility] 04-14-2024 14:01-0500 Diastolic blood pressure 70 mm[Hg] Les Viramontes MD Work Phone: [facility] 04-14-2024 14:01-0500 Heart rate 88 /min Les Viramontes MD Work Phone: [facility] 04-14-2024 14:01-0500 Respiratory rate 16 /min Les Viramontes MD Work Phone: [facility] 04-14-2024 14:01-0500 Systolic blood pressure 108 mm[Hg] Les Viramontes MD Work Phone: [facility] 02-04-2024 19:04-0400 Body mass index (BMI) [Ratio] 32.78 kg/m2 Les Viramontes MD Work Phone: [facility] 02-04-2024 19:04-0400 Body temperature 98.4 [degF] Les Viramontes MD Work Phone: [facility] 02-04-2024 19:04-0400 Body weight 100.7 kg Les Viramontes MD Work Phone: [facility] 02-04-2024 19:04-0400 Diastolic blood pressure 70 mm[Hg] Les Viramontes MD Work Phone: [facility] 02-04-2024 19:04-0400 Heart rate 96 /min Les Viramontes MD Work Phone: [facility] 02-04-2024 19:04-0400 Respiratory rate 16 /min Les Viramontes MD Work Phone: [facility] 02-04-2024 19:04-0400 Systolic blood pressure 120 mm[Hg] Les Viramontes MD Work Phone: [facility] 01-26-2024 14:28-0400 Body mass index (BMI) [Ratio] 32.78 kg/m2 Clarissa Suresh PA Work Phone: [facility] 01-26-2024 14:28-0400 Body temperature 97.2 [degF] Krislyn Aberegg PA Work Phone: [facility] 01-26-2024 14:28-0400 Body weight 100.7 kg Krislyn Aberegg PA Work Phone: [facility] 01-26-2024 14:28-0400 Diastolic blood pressure 72 mm[Hg] Krislyn Aberegg PA Work Phone: [facility] 01-26-2024 14:28-0400 Heart rate 100 /min Krislyn Aberegg PA Work Phone: [facility] 01-26-2024 14:28-0400 Respiratory rate 16 /min Krislyn Aberegg PA Work Phone: [facility] 01-26-2024 14:28-0400 SaO2% (BldA) [Mass fraction] 96 % Krislyn Aberegg PA Work Phone: [facility] 01-26-2024 14:28-0400 Systolic blood pressure 120 mm[Hg] Krislyn Aberegg PA Work Phone: [facility] 09-21-2023 14:55-0400 Body height 175.3 cm Les Viramontes MD Work Phone: [facility] 09-21-2023 14:55-0400 Body mass index (BMI) [Ratio] 34.26 kg/m2 Les Viramontes MD Work Phone: [facility] 09-21-2023 14:55-0400 Body weight 105.23 kg Les Viramontes MD Work Phone: [facility] 09-21-2023 14:55-0400 Diastolic blood pressure 70 mm[Hg] Les Viramontes MD Work Phone: [facility] 09-21-2023 14:55-0400 Heart rate 100 /min Les Viramontes MD Work Phone: [facility] 09-21-2023 14:55-0400 SaO2% (BldA) [Mass fraction] 95 % Les Viramontes MD Work Phone: [facility] 09-21-2023 14:55-0400 Systolic blood pressure 98 mm[Hg] Les Viramontes MD Work Phone: [facility] 11-20-2022 13:29-0400 Body height 175.[address] Les Viramontes Work Phone: [facility] 11-20-2022 13:29-0400 Body mass index (BMI) [Ratio] 34.6 kg/m2 Dr. Les Viramontes Work Phone: [facility] 11-20-2022 13:29-0400 Body temperature 98.2 [degF] Dr. Les Viramontes Work Phone: [facility] 11-20-2022 13:29-0400 Body weight 106.[address] Les Viramontes Work Phone: [facility] 11-20-2022 13:29-0400 Diastolic blood pressure 71 mm[Hg] Dr. Les Viramontes Work Phone: [facility] 11-20-2022 13:29-0400 Heart rate 86 /min Dr. Les Viramontes Work Phone: [facility] 11-20-2022 13:29-0400 Respiratory rate 16 /min Dr. Les Viramontes Work Phone: [facility] 11-20-2022 13:29-0400 SaO2% (BldA) [Mass fraction] 93 % Dr. Les Viramontes Work Phone: [facility] 11-20-2022 13:29-0400 Systolic blood pressure 107 mm[Hg] Dr. Les Viramontes Work Phone: [facility] 10-31-2022 05:59-0400 Body mass index (BMI) [Ratio] 34.8 kg/m2 Dr. Les Viramontes Work Phone: [facility] 10-31-2022 05:59-0400 Body temperature 98.2 [degF] Dr. Les Viramontes Work Phone: [facility] 10-31-2022 05:59-0400 Body weight 107.[address] Les Viramontes Work Phone: [facility] 10-31-2022 05:59-0400 Diastolic blood pressure 76 mm[Hg] Dr. Les Viramontes Work Phone: [facility] 10-31-2022 05:59-0400 Heart rate 99 /min Dr. Les Viramontes Work Phone: [facility] 10-31-2022 05:59-0400 Respiratory rate 18 /min Dr. Les Viramontes Work Phone: [facility] 10-31-2022 05:59-0400 SaO2% (BldA) [Mass fraction] 95 % Dr. Les Viramontes Work Phone: [facility] 10-31-2022 05:59-0400 Systolic blood pressure 125 mm[Hg] Dr. Les Viramontes Work Phone: [facility] 10-08-2022 10:40-0400 Body temperature 97.5 [degF] Mary Amanda CRITICAL CARE EDUCATOR.BUILDING INSPECTION ENGINEER Work Phone: [facility] 10-08-2022 10:40-0400 Body weight 106.69 kg Mary Amanda CRITICAL CARE EDUCATOR.BUILDING INSPECTION ENGINEER Work Phone: [facility] 10-08-2022 10:40-0400 Diastolic blood pressure 78 mm[Hg] Mary Amanda CRITICAL CARE EDUCATOR.BUILDING INSPECTION ENGINEER Work Phone: [facility] 10-08-2022 10:40-0400 Heart rate 94 /min Mary Amanda CRITICAL CARE EDUCATOR.BUILDING INSPECTION ENGINEER Work Phone: [facility] 10-08-2022 10:40-0400 Respiratory rate 21 /min Mary Amanda CRITICAL CARE EDUCATOR.BUILDING INSPECTION ENGINEER Work Phone: [facility] 10-08-2022 10:40-0400 SaO2% (BldA) [Mass fraction] 97 % Mary Amanda CRITICAL CARE EDUCATOR.BUILDING INSPECTION ENGINEER Work Phone: [facility] 10-08-2022 10:40-0400 Systolic blood pressure 120 mm[Hg] Mary Amanda CRITICAL CARE EDUCATOR.BUILDING INSPECTION ENGINEER Work Phone: [facility] 09-15-2022 15:15-0400 Body weight 108.86 kg Les Viramontes MD Work Phone: [facility] 09-15-2022 15:15-0400 Diastolic blood pressure 60 mm[Hg] Les Viramontes MD Work Phone: [facility] 09-15-2022 15:15-0400 Heart rate 96 /min Les Viramontes MD Work Phone: [facility] 09-15-2022 15:15-0400 Respiratory rate 16 /min Les Viramontes MD Work Phone: [facility] 09-15-2022 15:15-0400 SaO2% (BldA) [Mass fraction] 93 % Les Viramontes MD Work Phone: [facility] 09-15-2022 15:15-0400 Systolic blood pressure 118 mm[Hg] Les Viramontes MD Work Phone: [facility] 08-21-2022 13:16-0400 Body mass index (BMI) [Ratio] 35.9 kg/m2 Dr. Les Viramontes Work Phone: [facility] 08-21-2022 13:16-0400 Body temperature 97.8 [degF] Dr. Les Viramontes Work Phone: [facility] 08-21-2022 13:16-0400 Body weight 110.[address] Les Viramontes Work Phone: [facility] 08-21-2022 13:16-0400 Diastolic blood pressure 73 mm[Hg] Dr. Les Viramontes Work Phone: [facility] 08-21-2022 13:16-0400 Heart rate 90 /min Dr. Les Viramontes Work Phone: [facility] 08-21-2022 13:16-0400 Respiratory rate 18 /min Dr. Les Viramontes Work Phone: [facility] 08-21-2022 13:16-0400 SaO2% (BldA) [Mass fraction] 92 % Dr. Les Viramontes Work Phone: [facility] 08-21-2022 13:16-0400 Systolic blood pressure 125 mm[Hg] Dr. Les Viramontes Work Phone: [facility] 12-18-2016 07:09-0400 BMI (Body Mass Index) 34.11 kg/m2 Mary Blake LPN [facility] Work Phone: 12-18-2016 07:09-0400 Body Temperature 97.7 [degF] Mary Blake LPN [facility] Work Phone: 12-18-2016 07:09-0400 BP Diastolic 81 mm[Hg] Maryranjan Blake LPN [facility] Work Phone: 12-18-2016 07:09-0400 BP Systolic 127 mm[Hg] Mary Hayden BASILION [facility] Work Phone: 12-18-2016 07:09-0400 Height 175.26 cm Maryranjan Blake LPN [facility] Work Phone: 12-18-2016 07:09-0400 Pulse (Heart Rate) 85 /min Mary Blake LPN [facility] Work Phone: 12-18-2016 07:09-0400 Respiratory Rate 18 /min Mary Blake LPN [facility] Work Phone: 12-18-2016 07:09-0400 Weight 104.78 kg Mary Blake LPN [facility] Work Phone: 08-29-2016 07:28-0400 BMI (Body Mass Index) 33.08 kg/m2 Eli Yensho SOFTWARE CLERK [facility] Work Phone: 08-29-2016 07:28-0400 Body Temperature 96.3 [degF] Eli Yensho SOFTWARE CLERK [facility] Work Phone: 08-29-2016 07:28-0400 BP Diastolic 82 mm[Hg] Eli Yensho SOFTWARE CLERK [facility] Work Phone: 08-29-2016 07:28-0400 BP Systolic 131 mm[Hg] Eli Yensho SOFTWARE CLERK [facility] Work Phone: 08-29-2016 07:28-0400 Height 175.26 cm Eli Yensho SOFTWARE CLERK [facility] Work Phone: 08-29-2016 07:28-0400 Pulse (Heart Rate) 105 /min Eli Yensho SOFTWARE CLERK [facility] Work Phone: 08-29-2016 07:28-0400 Respiratory Rate 18 /min Eli Yensho SOFTWARE CLERK [facility] Work Phone: 08-29-2016 07:28-0400 Weight 101.61 kg Eli Yensho SOFTWARE CLERK [facility] Work Phone: Encounters Encounter Date Encounter Type Care Provider Facility Start: 12-11-2024 ambulatory Luanne Fairbanksi ty:[facility] Start: 11-28-2024 End: 11-28-2024 Patient encounter procedure NENITA Bar -[facility] Work Phone: Start: 11-28-2024 End: 11-28-[address] Les Viramontes MD Work Phone: -[facility] Start: 11-05-2024 End: 11-05-2024 Patient encounter procedure Gladys Wick NURSING UNIT CLERK-C -[facility] Work Phone: Start: 11-05-2024 End: 11-05-[address] Les Viramontes MD Work Phone: -[facility] Start: 10-07-2024 End: 10-07-2024 Refill Les Viramontes MD Work Phone: [facility] Comment on above: Refill Request Start: 09-26-2024 End: 09-26-2024 ambulatory LES VIRAMONTES Facility:[facility] Start: 09-26-2024 Patient encounter procedure LES VIRAMONTES [facility] Start: 09-22-2024 End: 09-22-2024 ambulatory LES VIRAMONTES Facility:[facility] Start: 09-19-2024 ambulatory Lex Dial Facility:[facility] Start: 09-19-2024 Non-patient / Non-visit Dr. Lex Gillespie own DO -[facility] Start: 09-16-2024 End: 09-16-2024 Patient encounter procedure NURSING UNIT CLERK Luanne Bar -Pulmonary Services/Neurology Work Phone: Start: 09-16-2024 End: 09-16-2024 ambulatory Luanne Bar Facility:[facility] Start: 09-09-2024 Non-patient / Non-visit Dr. Lex Gillespie own DO -[facility] Start: 09-09-2024 End: 09-09-[address] Les Viramontes MD Work Phone: [facility] Work Phone: Start: 09-09-2024 End: 09-09-2024 Patient encounter procedure NURSING UNIT CLERK Luanne Bar -Pulmonary Services/Neurology Work Phone: Start: 09-09-2024 End: 09-09-2024 ambulatory Luanne Bar Facility:[facility] Start: 08-15-2024 End: 08-15-2024 Patient encounter procedure NENITA Bar -[facility] Work Phone: Start: 08-15-2024 End: 08-15-2024 ambulatory Luanne Bar Facility:[facility] Start: 08-06-2024 End: 08-06-2024 Patient encounter procedure Gladys Wick NURSING UNIT CLERK-C -[facility] Work Phone: Start: 08-06-2024 End: 08-06-2024 ambulatory Gladys Wick Facility:[facility] Start: 07-01-2024 End: 07-02-2024 Refill Les Viramontes MD Work Phone: [facility] Comment on above: Refill Request Start: 06-13-2024 End: 06-13-2024 Patient encounter procedure NENITA Bar -Sleep Lab Work Phone: Start: 06-13-2024 End: 06-13-2024 ambulatory Luanne Bar Facility:[facility] Start: 06-09-2024 End: 06-09-2024 Emergency department patient visit Dr. Ed Patterson -Emergency Department Work Phone: Start: 05-19-2024 End: 05-19-2024 Patient encounter procedure NURSING UNIT CLERK Luanne Bar -Sleep Lab Work Phone: Start: 05-19-2024 End: 05-19-2024 ambulatory Luanne Bar Facility:[facility] Start: 05-09-2024 End: 05-09-2024 ambulatory Luanne Bar Facility:[facility] Start: 04-28-2024 End: 04-28-2024 ambulatory Gladys Wick Facility:[facility] Start: 04-14-2024 End: 04-14-2024 ambulatory LES VIRAMONTES Facility:[facility] Start: 04-14-2024 End: 04-14-2024 Office outpatient visit 15 minutes Les Viramontes MD Work Phone: [facility] [place] Comment on above: Type 2 diabetes odalis itus with diabetic neuropathy, without long-term current use of insulin (HCC) (Primary Dx); Essential hypertension; Hyperlipidemia with target LDL less than 100 Start: 04-10-2024 End: 04-10-2024 ambulatory LES VIRAMONTES Facility:[facility] Start: 02-04-2024 End: 02-04-2024 ambulatory LES VIRAMONTES Facility:[facility] Start: 02-04-2024 End: 02-04-2024 Patient encounter procedure Les Viramontes MD Work Phone: [facility] [place] Comment on above: Visit for suture rem oval (Primary Dx) Start: 01-26-2024 End: 01-26-2024 ambulatory SELF Facility:[facility] Start: 01-26-2024 End: 01-26-2024 Patient encounter procedure Clarissa MCGEE Work Phone: [facility] Comment on above: Laceration of left t humb without foreign body without damage to nail, initial encounter (Primary Dx) Start: 01-01-2024 End: 01-01-2024 ambulatory [facility] Facility:[facility] Start: 12-24-2023 End: 12-24-2023 [facility] Facility:[facility] Start: 09-27-2023 Telephone encounter Les diaz MD Work Phone: [facility] [place] Comment on above: Medication Request Start: 09-21-2023 End: 09-21-2023 Patient encounter procedure Les Viramontes MD Work Phone: [facility] [place] Comment on above: Welcome to Medicare preventive visit (Primary Dx); Type 2 diabetes mellitus with diabetic neuropathy, without long-term current use of insulin (HCC); Essential hypertension; Hyperlipidemia with target LDL less than 100 Start: 09-21-2023 End: 09-21-2023 Patient encounter status eLs Viramontes MD Work Phone: [facility] Work Phone: Start: 03-21-2023 Refill Les temple MD Work Phone: [facility] [place] Comment on above: Refill Request Start: 11-20-2022 End: 11-20-[address] Les Viramontes Work Phone: [facility] Work Phone: Start: 11-18-2022 Non-patient / Non-visit Dr. Bee Viramontes Work Phone: [facility] Start: 11-17-2022 End: 11-17-[address] Les Viramontes Work Phone: [facility] Work Phone: Start: 11-17-2022 End: 11-17-[address] Les Viramontes Work Phone: [facility]-Pulmonary Services/Neurology Work Phone: Start: 10-31-2022 End: 10-31-[address] [facility] Work Phone: Start: 10-16-2022 End: 10-16-2022 Subsequent hospital visit by physician Xr [facility] Work Phone: Radiology Comment on above: Acute cough [R05.1] Start: 10-08-2022 End: 10-08-2022 Patient encounter procedure Mary Amanda CRITICAL CARE EDUCATOR.BUILDING INSPECTION ENGINEER Work Phone: [facility] Comment on above: Rhinosinusitis (Prim asa Dx) Start: 09-15-2022 End: 09-15-2022 Patient encounter procedure Les Viramontes MD Work Phone: [facility] [place] Comment on above: Essential hypertensi on (Primary Dx); Type 2 diabetes mellitus with diabetic neuropathy, without long-term current use of insulin (HCC); Hyperlipidemia with target LDL less than 100; Gastroesophageal reflux disease, unspecified whether esophagitis present Start: 08-21-2022 End: 08-21-[address] Les Viramontes Work Phone: [facility] Work Phone: Start: 05-08-2022 ambulatory Les temple MD Work Phone: [facility] [place] Comment on above: Underarm rash Start: 03-10-2022 End: 03-10-2022 Patient encounter procedure Les Viramontes MD Work Phone: [facility] [place] Comment on above: Routine medical exam (Primary Dx); Hyperlipidemia with target LDL less than 100; Essential hypertension; BPH with obstruction/lower urinary tract symptoms; Obesity, Class II, BMI 35-39.9; Type 2 diabetes mellitus with diabetic neuropathy, without long-term current use of insulin (HCC); Erythema intertrigo; Need for influenza vaccination; Need for COVID-19 vaccine Start: 03-10-2022 End: 03-10-2022 Patient encounter status Les Viramontes MD Work Phone: [facility] Start: 02-27-2022 Telephone encounter Les diaz MD Work Phone: [facility] [place] Comment on above: Results, Lab Start: 10-28-2021 End: 10-28-2021 Patient encounter procedure Les Viramontes MD Work Phone: [facility] Comment on above: Type 2 diabetes odalis itus with diabetic neuropathy, without long-term current use of insulin (HCC) (Primary Dx); Essential hypertension; Hyperlipidemia with target LDL less than 100; Screening for prostate cancer Procedures Date Procedure Procedure Detail Performing Clinician Start: 09-26-2024 Adult depression scr eening assessment Les Viramontes MD Work Phone: Start: 06-09-2024 X-ray of chest, PA a nd lateral views Dr. Les Viramontes MD Work Phone: Start: 06-09-[address] Les Viramontes MD Work Phone: Start: 06-09-2024 Measurement of renal function Dr. Les Viramontes MD Work Phone: Comment on above: GFR Calc Start: 06-09-2024 SARS-CoV-2, Influenz a & RSV (PCR) Dr. Les Viramontes MD Work Phone: Start: 09-21-2023 Ecg routine ecg w/le ast 12 lds i&r only [facility] Provider Start: 09-21-2023 Adult depression scr eening assessment Xr [facility] Work Phone: Start: 10-16-2022 Radiologic exam ches t 2 views Nurys Bernardo PA-C Work Phone: Start: 03-10-2022 INFLUENZA VACCINE QUADRIVALENT 6 MO - 64 YRS IM Les Viramontes MD Work Phone: Start: 02-23-2021 Colonoscopy Les Ware MD Work Phone: Start: 09-29-2020 Adult depression scr eening assessment Les Viramontes MD Work Phone: Plan of Treatment Date Care Activity Detail Author Start: 06-02-2031 Urine microalbumin profile [facility] Start: 03-06-2027 PROSTATE CANCER SCREENING DISCUSSION PROSTATE CANCER SCREENING DISCUSSION [facility] Start: 03-06-2027 Prostate specific antigen measurement Prostate Cancer Screening Discussion [facility] Start: 02-23-2026 Colonoscopy COLONOSCOPY [facility] Start: 02-23-2026 COLORECTAL CANCER SCREENING COLORECTAL CANCER SCREENING [facility] Start: 02-23-2026 Screening for malign ant neoplasm of colon [facility] Start: 09-26-2025 Annual PCP Team Home School Coordinator jasen Disease Visit Annual PCP Team Chronic Disease Visit [facility] Start: 09-26-2025 Anxiety Screening Anxiety Screening [facility] Start: 09-26-2025 Depression Screening Depression Scre ening [facility] Start: 09-22-2025 Hepatitis B screening Urine Al bumin:Creatinine Ratio [facility] Start: 09-22-2025 Hepatitis B surface antibody level LDL Cholesterol [facility] Start: 04-14-2025 Annual PCP Team Home School Coordinator jasen Disease Visit Annual PCP Team Chronic Disease Visit [facility] Start: 04-14-2025 BP Controlled (<130/80) BP Controlle d (<130/80) [facility] Start: 04-14-2025 Diabetic foot examination Diabetic Foot Exam [facility] Start: 04-10-2025 Hepatitis B surface antibody level LDL Cholesterol [facility] Start: 04-03-2025 End: 04-03-2025 Patient encounter procedure 04/03/2025 3:00 PM EST Office Visit [facility] [address] [place] [address] Les Viramontes MD [address] [place] [address] follow up 6 months [facility] Comment on above: follow up 6 months Start: 03-25-2025 Hemoglobin A1c measurement HbA1C [facility] Start: 02-03-2025 Annual PCP Team Home School Coordinator jasen Disease Visit Annual PCP Team Chronic Disease Visit [facility] Start: 02-03-2025 BP Controlled (<130/80) BP Controlle d (<130/80) [facility] Start: 01-25-2025 BP Controlled (<130/80) BP Controlle d (<130/80) [facility] Start: 01-05-2025 Influenza vaccination Influenz a Vaccine (Season Ended) [facility] Start: 11-03-2024 Influenza vaccination Influenza Vacc ine (#1) [facility] Comment on above: Postponed from 01/05 (Declined at this time) Start: 10-09-2024 Hemoglobin A1c measurement HbA1C [facility] Start: 09-26-2024 End: 09-26-2024 Patient encounter procedure 09/26/2024 2:20 PM EDT Office Visit [facility] [address] [place] [address] Les Viramontes MD [address] [place] [address] Annual Medicare Wellness [facility] Comment on above: Annual Medicare Well ness Start: 09-22-2024 End: 12-22-2024 Basic metabolic 2000 panel - Serum or Plasma BASIC METABOLIC PANEL Lab Routine Type 2 diabetes mellitus with diabetic neuropathy, without long-term current use of insulin (HCC) Expected: 09/22/2024, Expires: 12/22/2024 [facility] Work Phone: Comment on above: Expected: 09/22/2024 , Expires: 12/22/2024 Start: 09-22-2024 End: 12-22-2024 Hemoglobin A1c in Blood HEMOGLOBIN A1C Lab Routine Type 2 diabetes mellitus with diabetic neuropathy, without long-term current use of insulin (HCC) Expected: 09/22/2024, Expires: 12/22/2024 [facility] Comment on above: Expected: 09/22/2024 , Expires: 12/22/2024 Start: 09-22-2024 End: 12-22-2024 Lipid 1996 panel - Serum or Plasma LIPID PANEL BASIC Lab Routine Type 2 diabetes mellitus with diabetic neuropathy, without long-term current use of insulin (HCC) Expected: 09/22/2024, Expires: 12/22/2024 [facility] Comment on above: Expected: 09/22/2024 , Expires: 12/22/2024 Start: 09-22-2024 End: 12-22-2024 Microalbumin/Creatinine [Mass Ratio] in Urine ALBUMIN/CREATININE RATIO, URINE Lab Routine Type 2 diabetes mellitus with diabetic neuropathy, without long-term current use of insulin (HCC) Expected: 09/22/2024, Expires: 12/22/2024 [facility] Comment on above: Expected: 09/22/2024 , Expires: 12/22/2024 Start: 09-20-2024 Annual PCP Team Home School Coordinator jasen Disease Visit Annual PCP Team Chronic Disease Visit [facility] Start: 09-20-2024 Anxiety Screening Anxiety Screening [facility] Start: 09-20-2024 BP Controlled (<130/80) BP Controlle d (<130/80) [facility] Start: 09-20-2024 Depression Screening Depression Scre ening [facility] Start: 09-16-2024 Hepatitis B screening Urine Al bumin:Creatinine Ratio [facility] Start: 09-16-[address] [facility] Start: 06-09-2024 [facility] Start: 05-07-2024 Advance Directive Discussion Advance Directive Discussion [facility] Start: 03-24-2024 End: 03-24-2024 Patient encounter procedure 03/24/2024 3:40 PM EST Office Visit [facility] [place] [address] [place], [place] [id number] Les Viramontes MD [address] [place], [place] [id number] 6 month follow up [facility] Comment on above: 6 month follow up Start: 03-23-2024 End: 06-22-2024 CBC panel - Blood by Automated count COMPLETE BLOOD COUNT Lab Routine Essential hypertension Expected: 03/23/2024, Expires: 06/22/2024 [facility] Comment on above: Expected: 03/23/2024 , Expires: 06/22/2024 Start: 03-23-2024 End: 06-22-2024 Comprehensive metabolic 2000 panel - Serum or Plasma COMPREHENSIVE METABOLIC PANEL Lab Routine Hyperlipidemia with target LDL less than 100 Expected: 03/23/2024, Expires: 06/22/2024 [facility] Comment on above: Expected: 03/23/2024 , Expires: 06/22/2024 Start: 03-23-2024 Diabetic foot examination Diabetic Foot Exam [facility] Start: 03-23-2024 End: 06-22-2024 Hemoglobin A1c in Blood HEMOGLOBIN A1C Lab Routine Type 2 diabetes mellitus with diabetic neuropathy, without long-term current use of insulin (HCC) Expected: 03/23/2024, Expires: 06/22/2024 [facility] Comment on above: Expected: 03/23/2024 , Expires: 06/22/2024 Start: 03-23-2024 End: 06-22-2024 Lipid 1996 panel - Serum or Plasma LIPID PANEL BASIC Lab Routine Hyperlipidemia with target LDL less than 100 Expected: 03/23/2024, Expires: 06/22/2024 [facility] Comment on above: Expected: 03/23/2024 , Expires: 06/22/2024 Start: 03-20-2024 Hepatitis B surface antibody level LDL Cholesterol [facility] Start: 01-06-2024 Influenza vaccination Influenza Vacc ine (#1) [facility] Start: 12-22-2023 PROSTATE CANCER SCREENING DISCUSSION PROSTATE CANCER SCREENING DISCUSSION [facility] Start: 12-18-2023 Hemoglobin A1c measurement HbA1C [facility] Start: 10-17-2023 BP Controlled (<130/80) BP Controlle d (<130/80) [facility] Start: 10-09-2023 BP CONTROLLED (<130/80) BP CONTROLLE D (<130/80) [facility] Start: 09-18-2023 Hemoglobin A1c/Hemoglobin.total in Blood HbA1C [facility] Start: 09-16-2023 ANNUAL PCP TEAM EXPERIMENTAL PREFLIGHT MECHANIC JASEN DISEASE VISIT ANNUAL PCP TEAM CHRONIC DISEASE VISIT [facility] Start: 09-16-2023 BP CONTROLLED (<130/80) BP CONTROLLE D (<130/80) [facility] Start: 09-16-2023 COVID-19 VACCINE (4 - Booster for Pfizer series) COVID-19 VACCINE (4 - Booster for Pfizer series) [facility] Comment on above: Postponed from 08/02 (Declined at this time) Start: 09-16-2023 SHINGRIX VACCINE (1 of 2) SHINGRIX VACCINE (1 of 2) [facility] Comment on above: Postponed from 09/01 (Declined at this time) Start: 09-12-2023 Hepatitis B screening URINE AL BUMIN:CREATININE RATIO [facility] Start: 09-12-2023 Hepatitis B surface antibody level LDL CHOLESTEROL [facility] Start: 03-18-2023 End: 05-18-2023 Comprehensive metabolic 2000 panel - Serum or Plasma COMP METABOLIC PANEL Lab Routine Hyperlipidemia with target LDL less than 100 Expected: 03/18/2023, Expires: 05/18/2023 [facility] Work Phone: Comment on above: Expected: 03/18/2023 , Expires: 05/18/2023 Start: 03-18-2023 End: 05-18-2023 Hemoglobin A1c in Blood HGB A1C Lab Routine Type 2 diabetes mellitus with diabetic neuropathy, without long-term current use of insulin (HCC) Expected: 03/18/2023, Expires: 05/18/2023 [facility] Work Phone: Comment on above: Expected: 03/18/2023 , Expires: 05/18/2023 Start: 03-18-2023 End: 05-18-2023 Lipid 1996 panel - Serum or Plasma LIPID PANEL BASIC Lab Routine Hyperlipidemia with target LDL less than 100 Expected: 03/18/2023, Expires: 05/18/2023 [facility] Work Phone: Comment on above: Expected: 03/18/2023 , Expires: 05/18/2023 Start: 03-10-2023 3 comp foot exam completed DIABETIC FOOT EXAM [facility] Start: 03-10-2023 ANNUAL PCP TEAM EXPERIMENTAL PREFLIGHT MECHANIC JASEN DISEASE VISIT ANNUAL PCP TEAM CHRONIC DISEASE VISIT [facility] Start: 03-10-2023 BP CONTROLLED (<130/80) BP CONTROLLE D (<130/80) [facility] Start: 01-05-2023 Covid-19 Vaccine () Covid-19 Vaccine () [facility] Start: 01-05-2023 Influenza vaccination Influenza Vacc ine (#1) [facility] Start: 12-12-2022 Glaucoma screening Dilated Retinal E xam [facility] Start: 12-12-2022 Hemoglobin A1c/Hemoglobin.total in Blood HBA1C [facility] Start: 12-12-2022 Hepatitis C antibody , confirmatory test DILATED RETINAL EXAM [facility] Start: 10-28-2022 ANNUAL PCP TEAM EXPERIMENTAL PREFLIGHT MECHANIC JASEN DISEASE VISIT ANNUAL PCP TEAM CHRONIC DISEASE VISIT [facility] Start: 10-28-2022 BP CONTROLLED (<130/80) BP CONTROLLE D (<130/80) [facility] Start: 10-28-2022 Hepatitis B screening URINE AL BUMIN:CREATININE RATIO [facility] Start: 10-25-2022 Hepatitis B surface antibody level LDL CHOLESTEROL [facility] Start: 09-07-2022 End: 11-07-2022 ALBUMIN/CREAT RATIO RND UR ALBUMIN/CREAT RATIO RND UR Lab Routine Type 2 diabetes mellitus with diabetic neuropathy, without long-term current use of insulin ([facility]) Expected: 09/07/2022, Expires: 11/07/2022 [facility] Work Phone: Comment on above: Expected: 09/07/2022 , Expires: 11/07/2022 Start: 09-07-2022 End: 11-07-2022 Basic metabolic 2000 panel - Serum or Plasma BASIC METABOLIC PNL Lab Routine Type 2 diabetes mellitus with diabetic neuropathy, without long-term current use of insulin (HCC) Expected: 09/07/2022, Expires: 11/07/2022 [facility] Work Phone: Comment on above: Expected: 09/07/2022 , Expires: 11/07/2022 Start: 09-07-2022 End: 11-07-2022 Hemoglobin A1c in Blood HGB A1C Lab Routine Type 2 diabetes mellitus with diabetic neuropathy, without long-term current use of insulin ([facility]) Expected: 09/07/2022, Expires: 11/07/2022 [facility] Work Phone: Comment on above: Expected: 09/07/2022 , Expires: 11/07/2022 Start: 09-07-2022 End: 11-07-2022 Lipid 1996 panel - Serum or Plasma LIPID PANEL BASIC Lab Routine Hyperlipidemia with target LDL less than 100 Expected: 09/07/2022, Expires: 11/07/2022 [facility] Work Phone: Comment on above: Expected: 09/07/2022 , Expires: 11/07/2022 Start: 09-03-2022 Hemoglobin A1c/Hemoglobin.total in Blood HBA1C [facility] Start: 05-07-2022 DEPRESSION ASSESSMENT DEPRESSION ASS ESSMENT [facility] Start: 02-27-2022 End: 04-29-2022 CBC panel - Blood by Automated count CBC Lab Routine Essential hypertension Expected: 02/27/2022, Expires: 04/29/2022 [facility] Work Phone: Comment on above: Expected: 02/27/2022 , Expires: 04/29/2022 Start: 02-27-2022 End: 04-29-2022 Comprehensive metabolic 2000 panel - Serum or Plasma COMP METABOLIC PANEL Lab Routine Type 2 diabetes mellitus with diabetic neuropathy, without long-term current use of insulin (HCC) Expected: 02/27/2022, Expires: 04/29/2022 [facility] Work Phone: Comment on above: Expected: 02/27/2022 , Expires: 04/29/2022 Start: 02-27-2022 End: 04-29-2022 Hemoglobin A1c in Blood HGB A1C Lab Routine Type 2 diabetes mellitus with diabetic neuropathy, without long-term current use of insulin (HCC) Expected: 02/27/2022, Expires: 04/29/2022 [facility] Work Phone: Comment on above: Expected: 02/27/2022 , Expires: 04/29/2022 Start: 02-27-2022 End: 04-29-2022 PSA/PROSTSPECAG SCRN PSA/PROSTSPECAG SCRN Lab Routine Screening for prostate cancer Expected: 02/27/2022, Expires: 04/29/2022 [facility] Work Phone: Comment on above: Expected: 02/27/2022 , Expires: 04/29/2022 Start: 01-25-2022 Hemoglobin A1c/Hemoglobin.total in Blood HBA1C [facility] Start: 01-05-2022 [facility]: 01-03-2022 3 comp foot exam completed DIABETIC FOOT EXAM [facility] Start: 10-28-2021 End: 12-28-2021 ALBUMIN/CREAT RATIO RND UR [facility] Work Phone: Comment on above: Expected: 10/28/2021 , Expires: 12/28/2021 Start: 10-05-2021 COVID-19 VACCINE (4 - Booster for Pfizer series) COVID-19 VACCINE (4 - Booster for Pfizer series) [facility] Start: 09-29-2021 Adult depression screening assessment DEPRESSION SCREENING [facility] Start: 08-02-2021 COVID-19 VACCINE (4 - Booster for Pfizer series) COVID-19 VACCINE (4 - Booster for Pfizer series) [facility] Start: 05-07-2021 DEPRESSION ASSESSMENT DEPRESSION ASS ESSMENT [facility] Start: 06-26-2020 Hepatitis B screening URINE AL BUMIN:CREATININE RATIO [facility] Start: 06-26-2020 Hepatitis C antibody , confirmatory test DILATED RETINAL EXAM [facility] Start: 2018 Hepatitis B Vaccine (1 of 3 - Risk 3-dose series) Hepatitis B Vaccine (1 of 3 - Risk 3-dose series) [facility] Start: 2018 RSV Vaccine (1 - 1-d ose 60+ series) RSV Vaccine (1 - 1-dose 60+ series) [facility] Start: 12-05-2017 End: 12-18-2016 Pulmonary Function Test - complete Pulmonary Function Test - complete [facility] Work Phone: Start: 12-18-2016 End: 12-18-2016 Appointment Appointment [facility] Work Phone: Start: 12-18-2016 End: 12-18-2016 Complete portable sleep workup (portable,CPAP as indicated) & follow up Complete portable sleep workup (portable,CPAP as indicated) & follow up [facility] Phone: Start: 12-18-2016 End: 12-18-2016 Follow Up Appt 1 year Follow Up Appt 1 year [facility] Phone: Start: 11-04-2016 End: 08-29-2016 Pulmonary Function Test - complete Pulmonary Function Test - complete [facility] Phone: Start: 08-29-2016 End: 08-29-2016 Follow Up Appt 3 months Follow Up Appt 3 months [facility] Phone: Start: 12-01-2014 FECAL OCCULT BLOOD FECAL OCCULT BLOO D [facility] Start: 12-01-2014 Screening for malign ant neoplasm of colon Fecal Occult Blood [facility] Start: 10-18-2012 PNEUMOCOCCAL (2 - PCV) PNEUMOCOCCAL (2 - PCV) [facility] Start: 10-18-2012 Pneumococcal vaccination Pneumococcal Vaccine (2 - PCV) [facility] Start: 2008 SHINGRIX VACCINE (1 of 2) SHINGRIX VACCINE (1 of 2) [facility] Start: 09-02-2003 COLOGUARD (FIT-DNA) COLOGUARD (FIT-D NA) [facility] Start: 09-02-[address] COLONOGRAPHY [facility] Start: 09-02-2003 Screening for malign ant neoplasm of colon [facility] Start: 09-02-2003 SIGMOIDOSCOPY SIGMOIDOSCOPY [facility] Start: 1976 BP Controlled (<130/80) BP Controlle d (<130/80) [facility] Continuous pulse oximetry [facility] ECG COMPLETE [facility] Work Phone: Comment on above: Ordered: 09/21/2023 Patient Education ED Influenza (Adult) [facility] Work Phone: Patient referral [facility] Work Phone: [facility] Immunizations Immunization Date Immunization Notes Care Provider Kathleen soto 03-23-2023 influenza, injectabl e, quadrivalent, contains preservative Les Viramontes MD Work Phone: [facility] 03-23-2023 influenza virus vacc ine, unspecified formulation Xr Sharonda Work Phone: [facility] 03-10-2022 influenza, injectabl e, quadrivalent, contains preservative Les Viramontes MD Work Phone: [facility] 03-10-2022 influenza virus vacc ine, unspecified formulation Les Viramontes MD Work Phone: [facility] 06-07-2021 COVID-19 vaccine, ag e 12+ yr (PFIZER-BIONTECH - PURPLE TOP) Les Viramontes MD Work Phone: [facility] Work Phone: 06-02-2021 tetanus toxoid, redu collin diphtheria toxoid, and acellular pertussis vaccine, adsorbed Les Viramontes MD Work Phone: [facility] Work Phone: 09-16-2020 COVID-19 vaccine, ag e 12+ yr (PFIZER-BIONTECH - PURPLE TOP) Lse Viramontes MD Work Phone: [facility] 08-26-2020 COVID-19 vaccine, ag e 12+ yr (PFIZER-BIONTECH - PURPLE TOP) Les Viramontes MD Work Phone: [facility] 03-04-2020 influenza, seasonal, injectable Les Viramontes MD Work Phone: [facility] Work Phone: 05-29-2019 influenza, seasonal, injectable Les Viramontes MD Work Phone: [facility] Work Phone: 10-11-2018 typhoid vaccine, duarte e, oral Les Viramontes MD Work Phone: [facility] Work Phone: 07-01-2018 influenza, injectabl e, quadrivalent, preservative free Les Viramontes MD Work Phone: [facility] Work Phone: 03-28-2017 influenza, seasonal, injectable Les Viramontes MD Work Phone: [facility] Work Phone: 04-25-2016 influenza, injectabl e, quadrivalent, contains preservative Les Viramontes MD Work Phone: [facility] 03-22-2016 Influenza virus vaccine DrTimmy Viramontes Work Phone: [facility] 02-18-2014 influenza, seasonal, injectable Les Viramontes MD Work Phone: [facility] 02-04-2013 influenza virus vacc ine, unspecified formulation Les Viramontes MD Work Phone: [facility] Work Phone: 04-23-2012 influenza virus vacc ine, unspecified formulation Les Viramontes MD Work Phone: [facility] Work Phone: 10-19-2011 pneumococcal polysaccharide vaccine, 23 valent Les Viramontes MD Work Phone: [facility] Work Phone: 07-08-2010 yellow fever vaccine Les Viramontes MD Work Phone: [facility] Work Phone: 05-23-2010 tetanus toxoid, redu collin diphtheria toxoid, and acellular pertussis vaccine, adsorbed Les Viramontes MD Work Phone: [facility] Work Phone: 06-15-2006 meningococcal polysaccharide (groups A, C, Y and W-135) diphtheria toxoid conjugate vaccine (MCV4P) Les Viramontes MD Work Phone: [facility] Work Phone: 05-14-2006 influenza virus vacc ine, unspecified formulation Les Viramontes MD Work Phone: [facility] Work Phone: 03-14-2005 influenza virus vacc ine, unspecified formulation Les Viramontes MD Work Phone: [facility] Work Phone: 06-11-2003 hepatitis A vaccine, unspecified formulation Les Viramontes MD Work Phone: [facility] Work Phone: 08-19-1998 hepatitis A vaccine, unspecified formulation Les Viramontes MD Work Phone: [facility] Work Phone: 03-15-1987 haemophilus influenz ae type b vaccine, conjugate unspecified formulation Les Viramontes MD Work Phone: [facility] Work Phone: 04-04-1986 diphtheria and tetan us toxoids, adsorbed for pediatric use Les Viramontes MD Work Phone: [facility] Work Phone: 04-04-1986 trivalent poliovirus vaccine, live, oral Les Viramontes MD Work Phone: [facility] Work Phone: 03-10-1985 diphtheria and tetan us toxoids, adsorbed for pediatric use Les Viramontes MD Work Phone: [facility] Work Phone: 09-17-1984 diphtheria and tetan us toxoids, adsorbed for pediatric use Les Viramontes MD Work Phone: [facility] Work Phone: 07-18-1984 diphtheria and tetan us toxoids, adsorbed for pediatric use Les Viramontes MD Work Phone: [facility] Work Phone: 07-18-1984 trivalent poliovirus vaccine, live, oral Les Viramontes MD Work Phone: [facility] Work Phone: 05-08-1984 trivalent poliovirus vaccine, live, oral Les Viramontes MD Work Phone: [facility] Work Phone: Payers Date Payer Category Payer [facility] [id number] 2023 Unknown [id number] 2023 Medicare [id number] 2023 Medicare [id number] 2023 Self-pay [id number] 2022 Unknown [id number] 2021 Private Health Insurance [facility] CHOICE PLUS [id number] 2021-Present [phone] [address] [place] [address] O [id number] 2021 Private Health Insurance [id number] 2016 Private Health Insurance [employer] L [id number] Private Health Insurance [id number] Private Health Insurance [facility] [id number] Unknown ANTHEM [id number] Unknown [id number] Unknown [id number] Unknown [id number] Unknown [id number] [id number] Unknown [id number] [id number] Unknown [id number] [id number] Unknown [id number] [id number] Unknown [id number] [id number] Unknown [id number] [id number] Unknown [id number] [id number] Unknown [id number] [id number] Unknown [id number] [id number] Unknown [id number] [id number] Unknown [id number] 2.462 Unknown [id number] [id number] Unknown [id number] [id number] Social History Date Type Detail Facility Start: 11-22-2010 End: 06-09-2024 Tobacco smoking status HIIS Never smoked tobacco [facility] Start: 02-25-2021 End: 09-26-2024 Alcohol intake Current non-drinker of alcohol (finding) [facility] Start: 10-24-2021 End: 09-12-2022 History SDOH Alcohol Frequency 1 [facility] Start: 10-24-2021 History SDOH Alcohol Std Drinks 98 [facility] Start: 10-24-2021 History SDOH Social Connections Phone 4 [facility] Start: 10-24-2021 End: 09-12-2022 History SDOH Social Connections Get Together 2 [facility] Start: 10-24-2021 End: 09-12-2022 History SDOH Social Connections Jewish 3 [facility] Start: 06-30-2019 Education 18 [facility] Start: 1960 Sex Assigned At Not on file [facility] Start: 10-18-2021 End: 03-10-2022 Exposure to SARS-CoV-2 (event) Not sure [facility] Start: 11-22-2010 Tobacco use and exposure Smokeless tobacco non-user [facility] Work Phone: Start: 03-10-2022 End: 09-12-2022 History SDOH Alcohol Std Drinks 0 [facility] Start: 09-12-2022 History SDOH Financial 5 [facility] Start: 11-20-2022 Tobacco smoking status NHIS Unknown if ever smoked [facility] Start: 08-22-[address] [facility] Start: 08-22-2016 Spouse/ Significant Other [facility] Start: 1960 Sex Assigned At Male [facility] Start: 09-12-2022 End: 09-14-2023 History of Social function [facility] Start: 09-12-2022 End: 09-14-2023 Social connection and isolation panel [facility] Do you belong to any clubs or organizations such as jainism groups, unions, fraternal or athletic groups, or school groups? Yes [facility] Are you now , , , , never or living with a partner? [facility] How often to you hav e a drink containing alcohol? Never [facility] How many standard dr inks containing alcohol do you have on a typical day? Patient does not drink [facility] Do you feel stress - tense, restless, nervous, or anxious, or unable to sleep at night because your mind is troubled all the time - these days [OSQ] Only a little [facility] (I/We) worried david er (my/our) food would run out before (I/we) got money to buy more. Sometimes true [facility] The food that (I/we) bought just didn't last, and (I/we) didn't have money to get more. Never true [facility] In the past 12 month s, was there a time when you were not able to pay the mortgage or rent on time? No [facility] How hard is it for y ou to pay for the very basics like food, housing, medical care, and heating Not very hard [facility] Medical Equipment Procedure Code Equipment Code Equipment Origin al Text Equipment Identifier Dates [id number], [id number] Start: 11-11-2013 Comment on above: Test blood sugar(s) one time daily. Dx: 250.00. Insulin: No Test blood sugar(s) once daily. Dx: 250.00. Insulin: No Pen Needle, Diabetic (Bd Ultra-Fine Wendy Pen Needle) 32 gauge x 5/32 needle Start: 10-26-2021 Pen Needle, Diabetic (Bd Ultra-Fine Wendy Pen Needle) 32 gauge x 5/32 needle Start: 10-26-2021 Pen Needle, Diabetic (Bd Ultra-Fine Wendy Pen Needle) 32 gauge x 5/32 needle Start: 10-26-2021 Pen Needle, Diabetic (Bd Ultra-Fine Wendy Pen Needle) 32 gauge x 5/32 needle Start: 10-26-2021 Functional Status Date Assessment Result Facility 10-29-2014 Are you deaf, or do you have serious difficulty hearing No 10/29/2014 7:22 PM Evonne May LPN No [facility] 10-29-2014 Are you blind, or do you have serious difficulty seeing, even when wearing glasses No 10/29/2014 7:22 PM Evonne May LPN No [facility] 10-29-2014 Do you have serious difficulty walking or climbing stairs No 10/29/2014 7:22 PM Evonne May LPN No [facility] 10-29-2014 Do you have difficul ty dressing or bathing No 10/29/2014 7:22 PM EDT Evonne Cantu LPN No [facility] 10-29-2014 Because of a physica l, mental, or emotional condition, do you have difficulty doing errands alone such as visiting a physician's office or shopping No 10/29/2014 7:22 PM EDT Evonne Cantu LPN No [facility] Mental Status Date Assessment Result Facility 10-29-2014 Because of a physica l, mental, or emotional condition, do you have serious difficulty concentrating, remembering, or making decisions No 10/29/2014 7:22 PM EDT Evonne Cantu LPN No [facility] Clinical Notes 12-25-2017 to 10-07-2024 Telephone Encounter - Claudette Kilpatrick LPN - 10/07/2024 10:33 AM EDTTelephone Encounter - Claudette Kilpatrick LPN - 10/07/2024 10:33 AM EDT Note Date & Type Note Facility 10-07-2024 Telephone encount er Note Pt calls to report mail-in pharmacy has not sent rx yet and pt is out of tamsulosin. Pt requests a 30 day rx go to [facility]. Prescription Refill Information The patient has been identified by name and date of : Yes Caregiver verified no other encounters exist for this prescription request: Yes Caregiver confirmed with patient/requestor that no other refills are due, in the near future, with this provider at this time: Yes The last office visit in the department: 09/26/24 Does the patient have a future office visit with this provider/department: Yes 04/03/25 Requested Prescriptions Pending Prescriptions Disp Refills tamsulosin (FLOMAX) 0.4 mg 30 capsule 0 Sig: Take 1 capsule by mouth once daily. Claudette Kilpatrick LPN October 07, 2024 10:36 AM [facility] 10-07-2024 Miscellaneous Notes Formattin g of this note is different from the original. Pt calls to report mail-in pharmacy has not sent rx yet and pt is out of tamsulosin. Pt requests a 30 day rx go to [facility]. Prescription Refill Information The patient has been identified by name and date of : Yes Caregiver verified no other encounters exist for this prescription request: Yes Caregiver confirmed with patient/requestor that no other refills are due, in the near future, with this provider at this time: Yes The last office visit in the department: 09/26/24 Does the patient have a future office visit with this provider/department: Yes 04/03/25 Requested Prescriptions Pending Prescriptions Disp Refills tamsulosin (FLOMAX) 0.4 mg 30 capsule 0 Sig: Take 1 capsule by mouth once daily. Claudette Kilpatrick LPN October 07, 2024 10:36 AM documented in this encounter [facility] 09-26-2024 Note HNO ID: [id number] Author: LES VIRAMONTES MD Service: ? Author Type: Physician Type: Progress Notes Filed: 09/26/2024 15:45 Note Text: This note was created using [employer]. Subjective Lele Pastrana is a 64 year old male. His hypertension was controlled off lisinopril. Diabetes was improving. Lipids were controlled. He had right hip pain for 4-5 months after prolonged sitting, improving with activity. He had remote soccer right hip injury. He also developed left knee pain for 3 months after jumping on a bed and noticing a pop. No limping and no swelling was noted. Pain was below the knee cap precipitated by certain twisting movement. He had not needed medication for his pain. He was now on CPAP for obstructive sleep apnea. He complained of erectile dysfunction for a few years, not previously addressed. He might travel to [place]12-10[place]19[place]24 at 9000 [place]. He will call if travel advise needed. Review of Systems Constitutional: Negative for fatigue and unexpected weight change. Respiratory: Negative for cough and shortness of breath. Cardiovascular: Negative for chest pain, palpitations and leg swelling. Gastrointestinal: Negative for abdominal pain, constipation and diarrhea. Genitourinary: Negative for difficulty urinating and dysuria. Musculoskeletal: Positive for arthralgias. Neurological: Negative for dizziness and headaches. ACTIVE PROBLEM LIST Esophageal Reflux Type 2 Diabetes Mellitus With Diabetic Neuropathy, Without Long-Term Current Use of Insulin (Hcc) Hyperlipidemia With Target Ldl Less Than 100 Bph With Obstruction/Lower Urinary Tract Symptoms Essential Hypertension Loni On Cpap Obesity, Class I, Bmi 30-34.9 Tubular Adenoma of Colon Obesity, Class II, Bmi 35-39.9 Erythema Intertrigo Erectile Dysfunction Social History Tobacco Use Smoking status: Never Smokeless tobacco: Never Vaping Use Vaping status: Never Used Substance Use Topics Alcohol use: No Drug use: No Current Outpatient Medications Medication Sig MOUNJARO 2.5 mg/0.5 mL pen injector Inject 2.5 mg subcutaneously one time a week. Per endo dapagliflozin propanediol (FARXIGA) 10 mg tablet Take 1 tablet by mouth once daily. Per endo atorvastatin (LIPITOR) 10 mg tablet Take 1 tablet by mouth daily at bedtime. tamsulosin (FLOMAX) 0.4 mg Take 1 capsule by mouth daily at bedtime. metFORMIN (GLUCOPHAGE) 500 mg tablet Take 2 tablets by mouth two times a day with meals. Omeprazole Magnesium (PRILOSEC OTC) 20 mg tablet Take 1 tablet by mouth daily before breakfast. 1/2 hr before meal. blood sugar diagnostic (ONE TOUCH ULTRA TEST) test strip Test blood sugar(s) one time daily. Dx: 250.00. Insulin: No Lancets (ONE TOUCH DELICA) lancets Test blood sugar(s) once daily. Dx: 250.00. Insulin: No MULTIVITAMIN TAB Take one(1) tablet daily. No current facility-administered medications for this visit. Objective BP 124/80 Pulse 74 Resp 14 Ht 173 cm (5' 8.11) Wt 99.9 kg (220 lb 3.8 oz) SpO2 98% BMI 33.38 kg/m? Physical Exam Constitutional: General: He is not in acute distress. Cardiovascular: Rate and Rhythm: Normal rate and regular rhythm. Heart sounds: No murmur heard. No gallop. Pulmonary: Breath sounds: Normal breath sounds. Musculoskeletal: Right hip: No deformity, tenderness, bony tenderness or crepitus. Normal range of motion. Normal strength. Left knee: No swelling, deformity or crepitus. Normal range of motion. Tenderness present over the patellar tendon. No medial joint line or lateral joint line tenderness. No LCL laxity or MCL laxity.Normal alignment, normal meniscus and normal patellar mobility. Right lower leg: No edema. Left lower leg: No edema. Neurological: Mental Status: He is alert. Latest Ref Rng 09/22/2024 Glucose 74 - 99 mg/dL 141 (H) BUN 9 - 24 mg/dL 10 Creatinine 0.73 - 1.22 mg/dL 0.86 Sodium 136 - 144 mmol/L 140 Potassium 3.7 - 5.1 mmol/L 4.1 Chloride 98 - 107 mmol/L 101 CO2 22 - 30 mmol/L 26 Anion Gap 8 - 15 mmol/L 13 Calcium 8.5 - 10.2 mg/dL 9.0 eGFR >=60 mL/min/1.73m? 95 Cholesterol, Total <200 mg/dL 114 Triglyceride <150 mg/dL 86 HDL Cholesterol >39 mg/dL 44 LDL Cholesterol, Calculated <100 mg/dL 53 Non HDL Cholesterol <130 mg/dL 70 VLDL Cholesterol <30 mg/dL 12 TC:HDL Ratio <5.10 2.59 LDL:HDL Ratio <2.54 1.20 Fasting Time hrs 12 Creatinine, Ur Random (UCRR) 20.0 - 300.0 mg/dL 168.0 Albumin, Urine Random mg/L <12.0 Albumin/Creat Ratio <30 mg/g <7 Hemoglobin A1C 4.3 - 5.6 % 7.4 (H) Estimated Average Glucose mg/dL 166 Legend: (H) High Assessment and Plan 1. Medicare annual wellness visit, initial - ICD9: V70.0, ICD10: Z00.00 (primary diagnosis) - See wellness. 2. Screening for depression - ICD9: V79.0, ICD10: Z13.3 - DEPRESSION SCREENING 3. Encounter for screening examination for other mental health and behavioral disorders - ICD9: V79.8, ICD10: Z13.39 - ANXIETY SCREENING (more content not included)... [facility] 09-26-2024 Note HNO ID: [id number] Author: LES VIRAMONTES MD Service: ? Author Type: Physician Type: Progress Notes Filed: 09/26/2024 15:45 Note Text: Lele Pastrana is a 64 year old male here for a Medicare wellness visit. Medicare Health Risk Assessment General Health Good Exercise: Minutes/Day Patient declined Exercise: Days/Week Patient declined Alcohol: Daily Use Never Alcohol: Drinks/Day Patient declined Alcohol: 6 or more drinks Patient declined Feel off balance No Concerns: Teeth/Dentures No Concerns: Sexual function Yes x 3 years Troubled by feelings None of the above Frequency: Eating healthy diet Decline ADLs requiring help None of the above Safety precautions in home/vehicle Yes Smoke, vape, chews tobacco No Difficulty hearing No Difficulty seeing No Current Providers Specialists: I have reviewed specialist-related care of the patient in the medical record. Current care team: Patient Care Team: Les Viramontes MD as PCP - General Marisa Arias APRN.BUILDING INSPECTION ENGINEER as Histologist Technologist (Internal Medicine) Outside specialists seen: Aldair Haynes MD; [facility]. Rashard Leon MD, Ophthalmology. Luanne Faust APRN, CNP, [facility]. Medical/Family history review Reviewed and updated problem list, medical/surgical/family/social history, medications, and allergies. Opioid use review Opioid Medications (last 90 days) No data to display Anxiety/Depression screening PHQ-2 Score: 0 (Lower risk for depression) GIAN-7 Score: 1 (Minimal Anxiety) Recommendation: no further intervention at this time Cognitive screening Mini Cog Score: 5 Cognitive screening reviewed and No further action needed (score 3-5). Functional Observation Was the patient's Timed Up AND Go test unsteady or >= 12 seconds? No Advance Care Planning Surrogate decision maker documented and/or advance directives scanned in chart Measurements BP 124/80 Pulse 74 Resp 14 Ht 173 cm (5' 8.11) Wt 99.9 kg (220 lb 3.8 oz) SpO2 98% BMI 33.38 kg/m? Vision Screening: Follows with optometry/ophthalmology Right: 20/20 Left: 20/ 20 Both: 20/15 Assessment/Plan Medicare annual wellness visit, initial (Z00.00) - Counseled on healthy diet and regular exercise - Fall avoidance information provided - Personalized prevention plan provided - Discussed need for and benefit of weight loss. BMI 33.38 kg/(m2) [facility] 08-06-2024 Evaluation note Diagnosis Onset Date Resolution Diabetes chronic August 06 2:46pm Hyperlipidemia chronic August 06, 2024 2:46pm Hypertension chronic August 06, 025 2:46pm Neuropathy chronic August 06 2:46pm Obesity chronic August 06 2:46pm Hypoxemia acute August 15 1:33pm Asthma chronic August 15 1:33pm LOIN (obstructive sleep apnea) chronic August 15, 2024 1:33pm 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 November 05, 2024 2:34pm Type 2 diabetes mellitus chronic November 05, 2024 2:34pm Hypoxemia acute November 28 2:38pm Asthma chronic November 28 2:38pm LONI (obstructive sleep apnea) chroni c November 28, 2024 2:38pm [facility] Work Phone: [phone] Telephone encounter Note* Telephone Encounter - Karla Rivera LPN - 07/01/2024 4:07 PM EST The patient has been identified by name and date of : Yes Caregiver verified no other encounters exist for this prescription request: Yes Caregiver confirmed with patient/requestor that no other refills are due, in the near future, with this provider at this time: Yes The last office visit in the department: 04/14/2024 Does the patient have a future office visit with this provider/department: Yes 09/26/2024 Requested Prescriptions Pending Prescriptions Disp Refills atorvastatin (LIPITOR) 10 mg tablet 90 tablet 3 Sig: Take 1 tablet by mouth daily at bedtime. tamsulosin (FLOMAX) 0.4 mg 90 capsule 3 Sig: Take 1 capsule by mouth daily at bedtime. lisinopril 2.5 mg tablet 90 tablet 3 Sig: Take 1 tablet by mouth once daily. metFORMIN (GLUCOPHAGE) 500 mg tablet 360 tablet 3 Sig: Take 2 tablets by mouth two times a day with meals. Karla Rivera LPN July 01, 2024 4:09 PM [facility]02-25-2025 Miscellaneous Notes* Telephone Encounter - Karla Rivera LPN - 07/01/2024 4:07 PM EST The patient has been identified by name and date of : Yes Caregiver verified no other encounters exist for this prescription request: Yes Caregiver confirmed with patient/requestor that no other refills are due, in the near future, with this provider at this time: Yes The last office visit in the department: 04/14/2024 Does the patient have a future office visit with this provider/department: Yes 09/26/2024 Requested Prescriptions Pending Prescriptions Disp Refills atorvastatin (LIPITOR) 10 mg tablet 90 tablet 3 Sig: Take 1 tablet by mouth daily at bedtime. tamsulosin (FLOMAX) 0.4 mg 90 capsule 3 Sig: Take 1 capsule by mouth daily at bedtime. lisinopril 2.5 mg tablet 90 tablet 3 Sig: Take 1 tablet by mouth once daily. metFORMIN (GLUCOPHAGE) 500 mg tablet 360 tablet 3 Sig: Take 2 tablets by mouth two times a day with meals. Karal Rivera LPN July 01, 2024 4:09 PM [facility] NoteHNO ID: [id number] Author: LES VIRAMONTES MD Service: ? Author Type: Physician Type: Progress Notes Filed: 04/14/2024 14:46 Note Text: This note was created using [employer]oder[employer]. Subjective Lele Pastrana is a 63 year old male. His dizziness was much less on lower dose of lisinopril, maybe every 6 weeks. He was still losing weight. He felt well overall. Review of Systems Constitutional: Negative for fatigue. Respiratory: Negative for shortness of breath. Cardiovascular: Negative for chest pain and palpitations. Gastrointestinal: Negative for abdominal pain, diarrhea and nausea. Neurological: Positive for light-headedness. Negative for headaches. ACTIVE PROBLEM LIST Esophageal Reflux Type 2 Diabetes Mellitus With Diabetic Neuropathy, Without Long-Term Current Use of Insulin (Hcc) Hyperlipidemia With Target Ldl Less Than 100 Bph With Obstruction/Lower Urinary Tract Symptoms Essential Hypertension LONI (obstructive sleep apnea) mild. Obesity, Class I, Bmi 30-34.9 Tubular Adenoma of Colon Obesity, Class II, Bmi 35-39.9 Erythema Intertrigo Current Outpatient Medications on File Prior to Visit Medication Sig tamsulosin (FLOMAX) 0.4 mg Take 1 capsule by mouth daily at bedtime. metFORMIN (GLUCOPHAGE) 500 mg tablet Take 2 tablets by mouth two times a day with meals. lisinopril 2.5 mg tablet Take 1 tablet by mouth once daily. atorvastatin (LIPITOR) 10 mg tablet Take 1 tablet by mouth daily at bedtime. dulaglutide (TRULICITY) 4.5 mg/0.5 mL pen injector Inject 4.5 mg subcutaneously one time a week. Per Endo. empagliflozin (JARDIANCE) 25 mg tablet Take 1 tablet by mouth once daily. Per Endo. Omeprazole Magnesium (PRILOSEC OTC) 20 mg tablet Take 1 tablet by mouth daily before breakfast. 1/2 hr before meal. blood sugar diagnostic (ONE TOUCH ULTRA TEST) test strip Test blood sugar(s) one time daily. Dx: 250.00. Insulin: No Lancets (ONE TOUCH DELICA) lancets Test blood sugar(s) once daily. Dx: 250.00. Insulin: No MULTIVITAMIN TAB Take one(1) tablet daily. No current facility-administered medications on file prior to visit. Objective BP 108/70 (BP Site: Left Arm, BP Position: Sitting, BP Cuff Size: Large Adult) Pulse 88 Temp 36.6 ?C (97.9 ?F) (Temporal) Resp 16 Wt 100.5 kg (221 lb 9 oz) BMI 32.72 kg/m? Physical Exam Constitutional: Appearance: He is not ill-appearing. Cardiovascular: Rate and Rhythm: Normal rate and regular rhythm. Heart sounds: No murmur heard. No gallop. Pulmonary: Breath sounds: Normal breath sounds. Musculoskeletal: Right lower leg: No edema. Left lower leg: No edema. Neurological: Mental Status: He is alert. Feet:Shoes and socks removed, No deformities, ulcers, calluses, normal distal pulses, and sensitive to 10 gm monofilament. Latest Ref Rng 04/10/2024 Protein, Total 6.3 - 8.0 g/dL 7.1 Albumin 3.9 - 4.9 g/dL 4.2 Calcium 8.5 - 10.2 mg/dL 9.3 Bilirubin, Total 0.2 - 1.3 mg/dL 0.5 Alkaline Phosphatase 38 - 113 U/L 106 AST 14 - 40 U/L 25 ALT 10 - 54 U/L 30 Glucose 74 - 99 mg/dL 118 (H) BUN 9 - 24 mg/dL 12 Creatinine 0.73 - 1.22 mg/dL 0.86 Sodium 136 - 144 mmol/L 139 Potassium 3.7 - 5.1 mmol/L 4.6 Chloride 98 - 107 mmol/L 100 CO2 22 - 30 mmol/L 27 Anion Gap 8 - 15 mmol/L 12 eGFR >=60 mL/min/1.73m? 96 WBC 3.70 - 11.00 k/uL 8.34 RBC 4.20 - 6.00 m/uL 5.23 Hemoglobin 13.0 - 17.0 g/dL 16.2 Hematocrit 39.0 - 51.0 % 49.6 MCV 80.0 - 100.0 fL 94.8 MCH 26.0 - 34.0 pg 31.0 MCHC 30.5 - 36.0 g/dL 32.7 RDW-CV 11.5 - 15.0 % 12.3 Platelet Count 150 - 400 k/uL 313 MPV 9.0 - 12.7 fL 10.3 Absolute nRBC <0.01 k/uL <0.01 Cholesterol, Total <200 mg/dL 151 Triglyceride <150 mg/dL 159 (H) HDL Cholesterol >39 mg/dL 45 Non HDL Cholesterol <130 mg/dL 106 Fasting Time hrs 12 VLDL Cholesterol <30 mg/dL 32 (H) TC:HDL Ratio <5.10 3.36 LDL Cholesterol <100 mg/dL 74 LDL:HDL Ratio <2.54 1.64 Hemoglobin A1C 4.3 - 5.6 % 7.6 (H) Estimated Average Glucose mg/dL 171 Legend: (H) High Assessment and Plan 1. Type 2 diabetes mellitus with diabetic neuropathy, without long-term current use of insulin (HCC) - ICD9: 250.60, 357.2, ICD10: E11.40 (primary diagnosis) - Improving control - Continue current medications - He will schedule eye exam. - BASIC METABOLIC PANEL - HEMOGLOBIN A1C - LIPID PANEL BASIC - ALBUMIN/CREATININE RATIO, URINE 2. Essential hypertension - ICD9: 401.9, ICD10: I10 - Controlled - Continue current medications - Call for worsening dizziness. 3. Hyperlipidemia with target LDL less than 100 - ICD9: 272.4, ICD10: E78.5 - Controlled - Continue current medications - Counseled on healthy diet and regular exercise Les Viramontes [facility]12-09-2024 History of Present illness Narrative* Les Viramontes MD - 04/14/2024 2:32 PM EST This note was created using [employer]. Subjective Lele Pastrana is a 63 year old male. His dizziness was much less on lower dose of lisinopril, maybe every 6 weeks. He was still losing weight. He felt well overall. Review of Systems Constitutional: Negative for fatigue. Respiratory: Negative for shortness of breath. Cardiovascular: Negative for chest pain and palpitations. Gastrointestinal: Negative for abdominal pain, diarrhea and nausea. Neurological: Positive for light-headedness. Negative for headaches. ACTIVE PROBLEM LIST Esophageal Reflux Type 2 Diabetes Mellitus With Diabetic Neuropathy, Without Long-Term Current Use of Insulin (Hcc) Hyperlipidemia With Target Ldl Less Than 100 Bph With Obstruction/Lower Urinary Tract Symptoms Essential Hypertension LONI (obstructive sleep apnea) mild. Obesity, Class I, Bmi 30-34.9 Tubular Adenoma of Colon Obesity, Class II, Bmi 35-39.9 Erythema Intertrigo Current Outpatient Medications on File Prior to Visit Medication Sig tamsulosin (FLOMAX) 0.4 mg Take 1 capsule by mouth daily at bedtime. metFORMIN (GLUCOPHAGE) 500 mg tablet Take 2 tablets by mouth two times a day with meals. lisinopril 2.5 mg tablet Take 1 tablet by mouth once daily. atorvastatin (LIPITOR) 10 mg tablet Take 1 tablet by mouth daily at bedtime. dulaglutide (TRULICITY) 4.5 mg/0.5 mL pen injector Inject 4.5 mg subcutaneously one time a week. Per Endo. empagliflozin (JARDIANCE) 25 mg tablet Take 1 tablet by mouth once daily. Per Endo. Omeprazole Magnesium (PRILOSEC OTC) 20 mg tablet Take 1 tablet by mouth daily before breakfast. 1/2hr before meal. blood sugar diagnostic (ONE TOUCH ULTRA TEST) test strip Test blood sugar(s) one time daily. Dx: 250.00. Insulin: No Lancets (ONE TOUCH DELICA) lancets Test blood sugar(s) once daily. Dx: 250.00. Insulin: No MULTIVITAMIN TAB Take one(1) tablet daily. No current facility-administered medications on file prior to visit. Objective BP 108/70 (BP Site: Left Arm, BP Position: Sitting, BP Cuff Size: Large Adult) Pulse 88 Temp 36.6 C (97.9 F) (Temporal) Resp 16 Wt 100.5 kg (221 lb 9 oz) BMI 32.72 kg/m Physical Exam Constitutional: Appearance: He is not ill-appearing. Cardiovascular: Rate and Rhythm: Normal rate and regular rhythm. Heart sounds: No murmur heard. No gallop. Pulmonary: Breath sounds: Normal breath sounds. Musculoskeletal: Right lower leg: No edema. Left lower leg: No edema. Neurological: Mental Status: He is alert. Feet:Shoes and socks removed, No deformities, ulcers, calluses, normal distal pulses, and sensitiveto 10 gm monofilament. Latest Ref Rn 04/10/2024 Protein, Total 6.3 - 8.0 g/dL 7.1 Albumin 3.9 - 4.9 g/dL 4.2 Calcium 8.5 - 10.2 mg/dL 9.3 Bilirubin, Total 0.2 - 1.3 mg/dL 0.5 Alkaline Phosphatase 38 - 113 U/L 106 AST 14 - 40 U/L 25 ALT 10 - 54 U/L 30 Glucose 74 - 99 mg/dL 118 (H) BUN 9 - 24 mg/dL 12 Creatinine 0.73 - 1.22 mg/dL 0.86 Sodium 136 - 144 mmol/L 139 Potassium 3.7 - 5.1 mmol/L 4.6 Chloride 98 - 107 mmol/L 100 CO2 22 - 30 mmol/L 27 Anion Gap 8 - 15 mmol/L 12 eGFR >=60 mL/min/1.73m 96 WBC 3.70 - 11.00 k/uL 8.34 RBC 4.20 - 6.00 m/uL 5.23 Hemoglobin 13.0 - 17.0 g/dL 16.2 Hematocrit 39.0 - 51.0 % 49.6 MCV 80.0 - 100.0 fL 94.8 MCH 26.0 - 34.0 pg 31.0 MCHC 30.5 - 36.0 g/dL 32.7 RDW-CV 11.5 - 15.0 % 12.3 Platelet Count 150 - 400 k/uL 313 MPV 9.0 - 12.7 fL 10.3 Absolute nRBC <0.01 k/uL <0.01 Cholesterol, Total <200 mg/dL 151 Triglyceride <150 mg/dL 159 (H) HDL Cholesterol >39 mg/dL 45 Non HDL Cholesterol <130 mg/dL 106 Fasting Time hrs 12 VLDL Cholesterol <30 mg/dL 32 (H) TC:HDL Ratio <5.10 3.36 LDL Cholesterol <100 mg/dL 74 LDL:HDL Ratio <2.54 1.64 Hemoglobin A1C 4.3 - 5.6 % 7.6 (H) Estimated Average Glucose mg/dL 171 Legend: (H) High Assessment and Plan 1. Type 2 diabetes mellitus with diabetic neuropathy, without long-term current use of insulin (HCC) - ICD9: 250.60, 357.2, ICD10: E11.40 (primary diagnosis) - Improving control - Continue current medications - He will schedule eye exam. - BASIC METABOLIC PANEL - HEMOGLOBIN A1C - LIPID PANEL BASIC - ALBUMIN/CREATININE RATIO, URINE 2. Essential hypertension - ICD9: 401.9, ICD10: I10 - Controlled - Continue current medications - Call for worsening dizziness. 3. Hyperlipidemia with target LDL less than 100 - ICD9: 272.4, ICD10: E78.5 - Controlled - Continue current medications - Counseled on healthy diet and regular exercise Les Viramontes MD [facility] NoteHNO ID: [id number] Author: LES VIRAMONTES MD Service: ? Author Type: Physician Type: Progress Notes Filed: 02/15/2024 16:16 Note Text: This note was created using [employer]. Subjective Patient presents with: Suture Removal Lele Pastrana is a 63 year old male had a laceration of his left thumb pad from a band saw. This was healing well. Review of Systems Constitutional: Negative for fever. Neurological: Negative for numbness. ACTIVE PROBLEM LIST Esophageal Reflux Type 2 Diabetes Mellitus With Diabetic Neuropathy, Without Long-Term Current Use of Insulin (Hcc) Hyperlipidemia With Target Ldl Less Than 100 Bph With Obstruction/Lower Urinary Tract Symptoms Essential Hypertension LONI (obstructive sleep apnea) mild. Obesity, Class I, Bmi 30-34.9 Tubular Adenoma of Colon Obesity, Class II, Bmi 35-39.9 Erythema Intertrigo Current Outpatient Medications Medication Sig tamsulosin (FLOMAX) 0.4 mg Take 1 capsule by mouth daily at bedtime. metFORMIN (GLUCOPHAGE) 500 mg tablet Take 2 tablets by mouth two times a day with meals. lisinopril 2.5 mg tablet Take 1 tablet by mouth once daily. atorvastatin (LIPITOR) 10 mg tablet Take 1 tablet by mouth daily at bedtime. dulaglutide (TRULICITY) 4.5 mg/0.5 mL pen injector Inject 4.5 mg subcutaneously one time a week. Per Endo. empagliflozin (JARDIANCE) 25 mg tablet Take 1 tablet by mouth once daily. Per Endo. Omeprazole Magnesium (PRILOSEC OTC) 20 mg tablet Take 1 tablet by mouth daily before breakfast. 1/2 hr before meal. blood sugar diagnostic (ONE TOUCH ULTRA TEST) test strip Test blood sugar(s) one time daily. Dx: 250.00. Insulin: No Lancets (ONE TOUCH DELICA) lancets Test blood sugar(s) once daily. Dx: 250.00. Insulin: No MULTIVITAMIN TAB Take one(1) tablet daily. No current facility-administered medications for this visit. Objective BP 120/70 (BP Site: Left Arm, BP Position: Sitting, BP Cuff Size: Large Adult) Pulse 96 Temp 36.9 ?C (98.4 ?F) (Temporal) Resp 16 Wt 100.7 kg (222 lb 0.1 oz) BMI 32.78 kg/m? Physical Exam Musculoskeletal: Comments: Left thumb pad with dried wound. Stitches intact. These were removed without difficulty, and no bleeding or drainage was noted. Thumb moving normally. Band Aid applied. Assessment and Plan 1. Visit for suture removal - ICD9: V58.32, ICD10: Z48.02 Sutures removed without difficulty. Patient tolerated this well. No bleeding or oozing noted Wound care instructions given. Return if needed. Les Viramontes [facility]09-30-2024 History of Present illness Narrative* Les Viramontes MD - 02/04/2024 7:21 PM EDT This note was created using [employer]. Subjective Patient presents with: Suture Removal Lele Pastrana is a 63 year old male had a laceration of his left thumb pad from a band saw. This was healing well. Review of Systems Constitutional: Negative for fever. Neurological: Negative for numbness. ACTIVE PROBLEM LIST Esophageal Reflux Type 2 Diabetes Mellitus With Diabetic Neuropathy, Without Long-Term Current Use of Insulin (Hcc) Hyperlipidemia With Target Ldl Less Than 100 Bph With Obstruction/Lower Urinary Tract Symptoms Essential Hypertension LONI (obstructive sleep apnea) mild. Obesity, Class I, Bmi 30-34.9 Tubular Adenoma of Colon Obesity, Class II, Bmi 35-39.9 Erythema Intertrigo Current Outpatient Medications Medication Sig tamsulosin (FLOMAX) 0.4 mg Take 1 capsule by mouth daily at bedtime. metFORMIN (GLUCOPHAGE) 500 mg tablet Take 2 tablets by mouth two times a day with meals. lisinopril 2.5 mg tablet Take 1 tablet by mouth once daily. atorvastatin (LIPITOR) 10 mg tablet Take 1 tablet by mouth daily at bedtime. dulaglutide (TRULICITY) 4.5 mg/0.5 mL pen injector Inject 4.5 mg subcutaneously one time a week. Per Endo. empagliflozin (JARDIANCE) 25 mg tablet Take 1 tablet by mouth once daily. Per Endo. Omeprazole Magnesium (PRILOSEC OTC) 20 mg tablet Take 1 tablet by mouth daily before breakfast. 1/2hr before meal. blood sugar diagnostic (ONE TOUCH ULTRA TEST) test strip Test blood sugar(s) one time daily. Dx: 250.00. Insulin: No Lancets (ONE TOUCH DELICA) lancets Test blood sugar(s) once daily. Dx: 250.00. Insulin: No MULTIVITAMIN TAB Take one(1) tablet daily. No current facility-administered medications for this visit. Objective BP 120/70 (BP Site: Left Arm, BP Position: Sitting, BP Cuff Size: Large Adult) Pulse 96 Temp 36.9 C (98.4 F) (Temporal) Resp 16 Wt 100.7 kg (222 lb 0.1 oz) BMI 32.78 kg/m Physical Exam Musculoskeletal: Comments: Left thumb pad with dried wound. Stitches intact. These were removed without difficulty, and no bleeding or drainage was noted. Thumb moving normally. Band Aid applied. Assessment and Plan documented in this encounterK[facility]24 NoteHNO ID: [id number] Author: CLARISAS SURESH PA Service: ? Author Type: Physician Correspondence Dictator Type: Progress Notes Filed: 01/26/2024 15:04 Note Text: This note was created using [employer]. Subjective Lele Pastrana is a 63 year old male. HPI 63-year-old male presents for laceration to left thumb. Patient states that he was cutting wood and accidentally cut his thumb with his band saw. He states that this occurred just prior to arrival. He is not on any blood thinners. Last tetanus was in 2021. Still able to move the finger. No numbness or tingling. He did wash it out with water at home. No other complaint. PAST MEDICAL HISTORY Diagnosis Date Asthma ASTHMA UNSPECIFIED 06/12/2005 likely GERD related. 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 12/25/2017 Tubular adenoma of colon 11/19/2014 Type 2 diabetes mellitus without complication (HCC) 06/27/2011 PAST SURGICAL HISTORY Procedure Laterality Date COLONOSCOPY FLX DX W/COLLJ SPEC WHEN PFRMD 11/19/2014 Colonoscopy COLONOSCOPY FLX DX W/COLLJ SPEC WHEN PFRMD 02/23/2021 EXCISION PILONIDAL CYST/SINUS SIMPLE 04/1980 HERNIA REPAIR HX 1966 RPR 1ST INGUN HRNA AGE 5 YRS/> REDUCIBLE 1965 Hernia repair, inguinal ALLERGIES Patient has no known allergies. MEDICATIONS tamsulosin (FLOMAX) 0.4 mg Take 1 capsule by mouth daily at bedtime. metFORMIN (GLUCOPHAGE) 500 mg tablet Take 2 tablets by mouth two times a day with meals. lisinopril 2.5 mg tablet Take 1 tablet by mouth once daily. atorvastatin (LIPITOR) 10 mg tablet Take 1 tablet by mouth daily at bedtime. dulaglutide (TRULICITY) 4.5 mg/0.5 mL pen injector Inject 4.5 mg subcutaneously one time a week. Per Endo. empagliflozin (JARDIANCE) 25 mg tablet Take 1 tablet by mouth once daily. Per Endo. Omeprazole Magnesium (PRILOSEC OTC) 20 mg tablet Take 1 tablet by mouth daily before breakfast. 1/2 hr before meal. blood sugar diagnostic (ONE TOUCH ULTRA TEST) test strip Test blood sugar(s) one time daily. Dx: 250.00. Insulin: No Lancets (ONE TOUCH DELICA) lancets Test blood sugar(s) once daily. Dx: 250.00. Insulin: No MULTIVITAMIN TAB Take one(1) tablet daily. cephALEXin (KEFLEX) 500 mg capsule Take 1 capsule by mouth four times daily for 5 days. FAMILY HISTORY Problem Relation Age of Onset Heart Mother pacemaker Cancer Mother Bill cell carcinoma Liver Cancer Mother Hip Fracture Mother Diabetes Father Coronary Artery Disease Father onset age 65, CABG Pneumonia Father Heart Brother arrhythmia, ablated other (benign prostate hypertrophy) Brother Pneumonia Brother Legionella, RSV Hypertension Brother Diabetes Brother None Brother Social History Tobacco Use Smoking status: Never Smokeless tobacco: Never Vaping Use Vaping status: Never Used Substance Use Topics Alcohol use: No Drug use: No Review of Systems Constitutional: Negative for chills and fever. HENT: Negative for congestion and sore throat. Respiratory: Negative for cough and shortness of breath. Gastrointestinal: Negative for diarrhea and vomiting. Skin: Positive for wound. Objective BP 120/72 Pulse 100 Temp 36.2 ?C (97.2 ?F) Resp 16 Wt 100.7 kg (222 lb 0.1 oz) SpO2 96% BMI 32.78 kg/m? Physical Exam Vitals and nursing note reviewed. Constitutional: General: He is not in acute distress. Appearance: Normal appearance. He is not toxic-appearing. Cardiovascular: Rate and Rhythm: Normal rate and regular rhythm. Musculoskeletal: Left hand: Laceration present. No tenderness or bony tenderness. Normal range of motion. Normal capillary refill. Normal pulse. Hands: Comments: Approximately 2 cm laceration over the palmar surface of the distal phalanx of the left thumb. Active bleeding noted. Normal ROM of the thumb. Normal sensation. Cap refill less than 2 seconds. No nail involvement. No foreign body seen. Skin: General: Skin is warm and dry. Neurological: Mental Status: He is alert. Procedure: [facility] PROTOCOL / SAFETY CHECKLIST Procedure to be Performed: Suturing Sign In: A Moment of CARE was completed. Personnel directly involved with the procedure wore the appropriate PPE (Personal Protective Equipment). Patient/Surrogate Stated/Verified: PATIENT VERIFIED(optional for EMERGENT procedures): Patient name, Date of , Relevant allergies, and The intended procedure Time Out Communication: (more content not included)...[facility]09-21-2024 History of Present illness Narrative* Clarissa Suresh PA - 01/26/2024 2:58 PM EDT Images from the original note were not included. This note was created using Virtual [employer]. Subjective Lele Pastrana is a 63 year old male. HPI 63-year-old male presents for laceration to left thumb. Patient states that he was cutting woodand accidentally cut his thumb with his band saw. He states that this occurred just prior to arrival. He is not on any blood thinners. Last tetanus was in 2021. Still able to move the finger. No numbness or tingling. He did wash it out with water at home. No other complaint. PAST MEDICAL HISTORY Diagnosis Date Asthma ASTHMA UNSPECIFIED 06/12/2005 likely GERD related. 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 12/25/2017 Tubular adenoma of colon 11/19/2014 Type 2 diabetes mellitus without complication (HCC) 06/27/2011 PAST SURGICAL HISTORY Procedure Laterality Date COLONOSCOPY FLX DX W/COLLJ SPEC WHEN PFRMD 11/19/2014 Colonoscopy COLONOSCOPY FLX DX W/COLLJ SPEC WHEN PFRMD 02/23/2021 EXCISION PILONIDAL CYST/SINUS SIMPLE 04/1980 HERNIA REPAIR HX 1966 RPR 1ST INGUN HRNA AGE 5 YRS/> REDUCIBLE 1965 Hernia repair, inguinal ALLERGIES Patient has no known allergies. MEDICATIONS tamsulosin (FLOMAX) 0.4 mg Take 1 capsule by mouth daily at bedtime. metFORMIN (GLUCOPHAGE) 500 mg tablet Take 2 tablets by mouth two times a day with meals. lisinopril 2.5 mg tablet Take 1 tablet by mouth once daily. atorvastatin (LIPITOR) 10 mg tablet Take 1 tablet by mouth daily at bedtime. dulaglutide (TRULICITY) 4.5 mg/0.5 mL pen injector Inject 4.5 mg subcutaneously one time a week. Per Endo. empagliflozin (JARDIANCE) 25 mg tablet Take 1 tablet by mouth once daily. Per Endo. Omeprazole Magnesium (PRILOSEC OTC) 20 mg tablet Take 1 tablet by mouth daily before breakfast. 1/2hr before meal. blood sugar diagnostic (ONE TOUCH ULTRA TEST) test strip Test blood sugar(s) one time daily. Dx: 250.00. Insulin: No Lancets (ONE TOUCH DELICA) lancets Test blood sugar(s) once daily. Dx: 250.00. Insulin: No MULTIVITAMIN TAB Take one(1) tablet daily. cephALEXin (KEFLEX) 500 mg capsule Take 1 capsule by mouth four times daily for 5 days. FAMILY HISTORY Problem Relation Age of Onset Heart Mother pacemaker Cancer Mother Bill cell carcinoma Liver Cancer Mother Hip Fracture Mother Diabetes Father Coronary Artery Disease Father onset age 65, CABG Pneumonia Father Heart Brother arrhythmia, ablated other (benign prostate hypertrophy) Brother Pneumonia Brother Legionella, RSV Hypertension Brother Diabetes Brother None Brother Social History Tobacco Use Smoking status: Never Smokeless tobacco: Never Vaping Use Vaping status: Never Used Substance Use Topics Alcohol use: No Drug use: No Review of Systems Constitutional: Negative for chills and fever. HENT: Negative for congestion and sore throat. Respiratory: Negative for cough and shortness of breath. Gastrointestinal: Negative for diarrhea and vomiting. Skin: Positive for wound. Objective BP 120/72 Pulse 100 Temp 36.2 C (97.2 F) Resp 16 Wt 100.7 kg (222 lb 0.1 oz) SpO2 96% BMI 32.78 kg/m Physical Exam Vitals and nursing note reviewed. Constitutional: General: He is not in acute distress. Appearance: Normal appearance. He is not toxic-appearing. Cardiovascular: Rate and Rhythm: Normal rate and regular rhythm. Musculoskeletal: Left hand: Laceration present. No tenderness or bony tenderness. Normal range of motion. Normal capillary refill. Normal pulse. Hands: Comments: Approximately 2 cm laceration over the palmar surface of the distal phalanx of the left thumb. Active bleeding noted. Normal ROM of the thumb. Normal sensation. Cap refill less than 2 seconds. No nail involvement. No foreign body seen. Skin: General: Skin is warm and dry. Neurological: Mental Status: He is alert. Procedure: UNIVERSAL PROTOCOL / SAFETY CHECKLIST Procedure to be Performed: Suturing Sign In: A Moment of CARE was completed. Personnel directly involved with the procedure wore the appropriate PPE (Personal Protective Equipment). Patient/Surrogate Stated/Verified: PATIENT VERIFIED(optional for EMERGENT procedures): Patient name, Date of , Relevant allergies, and The intended procedure Time Out Communication: Intended patient and procedure match the source documents. Consent documented and matches the intended procedure. No relevant labs, photos, and/or imaging studies were applicable for review. Correct side/site marked and visible. Sign Out: SIGN OUT (optional for EMERGENT procedures): All instruments, equipment, possible retained foreign bodies accounted for. ARELY Inman Procedure: - Wound cleansed with sterile water and irrigated with sterile water. -2% lidocaine without epinephrine injected for local infiltration around the wound for local anesthesia. - Six 4-0 Prolene sutures placed -Bleeding controlled. Patient tolerated procedure well. -Nonadherent dressing applied. -Follow-up in 7 to 10 days for suture removal Assessment and Plan ASSESSMENT/PLAN: 1. Laceration of left thumb without foreign body without damage to nail, initial encounter - ICD9: 883.0, ICD10: S61.012A -Neurovascular exam intact. -Last tetanus 2021 -See procedures above. 6 sutures placed. -Follow-up in 7 to 10 days for removal. -No foreign body seen on exam. Advised patient we cannot rule out small retained foreign bodies. Heunderstands. -Due to the concern for cleanliness of the saw that caused the wound, Rx for Keflex given. -Follow-up for any signs or concerns for infection Diagnosis and treatment plan were discussed and questions were answered to the patient's satisfaction. Pt acknowledged understanding of concepts and follow up plan. Specific signs and symptoms that would indicate the need for higher level of care were discussed in detail warranting prompt ER evaluation. ARELY Inman [facility] Telephone encounter Note * Telephone Encounter - Les Viramontes MD - 09/27/2023 4:59 PM EDT The following approved medication requests have been transmitted electronically. Requested Prescriptions Signed Prescriptions Disp Refills tamsulosin (FLOMAX) 0.4 mg 90 capsule 3 Sig: Take 1 capsule by mouth daily at bedtime. Authorizing Provider: LES VIRAMONTES metFORMIN (GLUCOPHAGE) 500 mg tablet 360 tablet 3 Sig: Take 2 tablets by mouth two times a day with meals. Authorizing Provider: LES VIRAMONTES lisinopril 2.5 mg tablet 90 tablet 3 Sig: Take 1 tablet by mouth once daily. Authorizing Provider: LES VIRAMONTES atorvastatin (LIPITOR) 10 mg tablet 90 tablet 3 Sig: Take 1 tablet by mouth daily at bedtime. Authorizing Provider: LES VIRAMONTES MD [facility]05-23-2024 Miscellaneous Notes* Telephone Encounter - Les Viramontes MD - 09/27/2023 4:59 PM EDT The following approved medication requests have been transmitted electronically. Requested Prescriptions Signed Prescriptions Disp Refills tamsulosin (FLOMAX) 0.4 mg 90 capsule 3 Sig: Take 1 capsule by mouth daily at bedtime. Authorizing Provider: LES VIRAMONTES metFORMIN (GLUCOPHAGE) 500 mg tablet 360 tablet 3 Sig: Take 2 tablets by mouth two times a day with meals. Authorizing Provider: LES VIRAMONTES lisinopril 2.5 mg tablet 90 tablet 3 Sig: Take 1 tablet by mouth once daily. Authorizing Provider: LES VIRAMONTES atorvastatin (LIPITOR) 10 mg tablet 90 tablet 3 Sig: Take 1 tablet by mouth daily at bedtime. Authorizing Provider: LES VIRAMONTES MD * Telephone Encounter - Shauna Gordon RN - 09/27/2023 1:35 PM EDT Patient calling and states he is using a new pharmacy now. Asking for the 4 pended scripts to be sent to [facility]. NO call back needed to patient if able to complete request. Thank you. Requested Prescriptions Pending Prescriptions Disp Refills tamsulosin (FLOMAX) 0.4 mg 90 capsule 3 Sig: Take 1 capsule by mouth daily at bedtime. metFORMIN (GLUCOPHAGE) 500 mg tablet 360 tablet 3 Sig: Take 2 tablets by mouth two times a day with meals. lisinopril 2.5 mg tablet 90 tablet 3 Sig: Take 1 tablet by mouth once daily. atorvastatin (LIPITOR) 10 mg tablet 90 tablet 3 Sig: Take 1 tablet by mouth daily at bedtime. Date of last office visit in primary care: 09/21/2023 Date of next office visit in primary care: 03/24/2024 Shauna Gordon RN. documented in this encounterK[facility] Telephone encounter Note * Telephone Encounter - Shauna Gordon RN - 09/27/2023 1:35 PM EDT Patient calling and states he is using a new pharmacy now. Asking for the 4 pended scripts to be sent to [facility]. NO call back needed to patient if able to complete request. Thank you. Requested Prescriptions Pending Prescriptions Disp Refills tamsulosin (FLOMAX) 0.4 mg 90 capsule 3 Sig: Take 1 capsule by mouth daily at bedtime. metFORMIN (GLUCOPHAGE) 500 mg tablet 360 tablet 3 Sig: Take 2 tablets by mouth two times a day with meals. lisinopril 2.5 mg tablet 90 tablet 3 Sig: Take 1 tablet by mouth once daily. atorvastatin (LIPITOR) 10 mg tablet 90 tablet 3 Sig: Take 1 tablet by mouth daily at bedtime. Date of last office visit in primary care: 09/21/2023 Date of next office visit in primary care: 03/24/2024 Shauna Gordon RN. [facility]05-17-[facility] Instructions* Patient Instructions* Les Viramontes MD - 09/21/2023 3:39 PM EDT Advance Directive Forms Advanced Directives Forms (Danish) FORMS: [email or web address] f INFORMATIONAL BROCHURE: [email or web address]/files/[email or web address]/inform [email or web address]/[email or web address]-[email or web address]?la=en Advance Directives (non-Danish) FORMS: [email or web address] nce-[email or web address]#forms-tab Please bring completed forms to your next appointment or email them to [email or web address]. Patient Resources How to Get Started Talking with Loved Ones about your Wishes at the End of Life [email or web address]/wp-content/uploads//ConversationProjec h-GbtraHrebmdbCli-Gzortub.pdf How to Navigate Conversations with your Care Team around your Preferences [email or web address] documented in this encounterK[facility]05-17-[facility] History of Present illness Narrative* Les Viramontes MD - 09/21/2023 3:23 PM EDT Images from the original note were not included. Lele Pastrana is a 63 year old male here for a Medicare wellness visit. Medicare Health Risk Assessment General Health Good Exercise: Minutes/Day 20 min Exercise: Days/Week 1 day Alcohol: Daily Use Never Alcohol: Drinks/Day Patient does not drink Alcohol: 6 or more drinks Never Feel off balance No Concerns: Teeth/Dentures No Concerns: Sexual function Yes Troubled by feelings None of the above Frequency: Eating healthy diet Several days ADLs requiring help None of the above Safety precautions in home/vehicle Yes Smoke, vape, chews tobacco No Difficulty hearing No Difficulty seeing No Current Providers Specialists: I have reviewed specialist-related care of the patient in the medical record. Current care team: Patient Care Team: Les Viramontes MD as PCP - General Outside specialists seen: Aldair Haynes MD; [facility]. Rashard Leon MD, Ophthalmology. Medical/Family history review Reviewed and updated problem list, medical/surgical/family/social history, medications, and allergies. Opioid use review Opioid Medications (last 90 days) No data to display Depression screening Depression Screening PHQ-2 Score GIAN-2 Total Score 09/21/2023 0 0 Depression screening tool completed and reviewed. Based on score and interview, patient is not at risk for depression. Screening tool discussed with patient, and I recommended no further interventionat this time. Cognitive screening Mini Cog Score: 5 Cognitive screening reviewed and No further action needed (score 3-5). Functional Observation Was the patient's Timed Up & Go test unsteady or ? 12 seconds? No Advance Care Planning Patient did not wish or was not able to name a surrogate decision maker or provide an advance care plan Measurements BP 98/70 Pulse 100 Ht 5' 9 (1.75m) Wt 232 lb (105.2kg) SpO2 95% BMI 34.24 kg/(m^2). Vision Screening: Follows with optometry/ophthalmology Assessment/Plan Welcome to Medicare preventive visit (Z00.00) - Counseled on healthy diet and regular exercise - Fall avoidance information provided - Personalized prevention plan provided - Discussed need for and benefit of weight loss. BMI 34.26 kg/(m^2) - Vaccines were recommended and all were declined. - Dilated eye exam recommended. - EKG RESULTS: normal sinus rhythm and incomplete RBBB, no change. Latest Ref Rng 09/17/2023 Glucose 74 - 99 mg/dL 148 (H) BUN 9 - 24 mg/dL 12 Creatinine 0.73 - 1.22 mg/dL 0.81 Sodium 136 - 144 mmol/L 138 Potassium 3.7 - 5.1 mmol/L 4.5 Chloride 97 - 105 mmol/L 100 CO2 22 - 30 mmol/L 24 Anion Gap 9 - 18 mmol/L 14 Calcium 8.5 - 10.2 mg/dL 9.2 eGFR >=60 mL/min/1.73m 98 Creatinine, Ur Random (UCRR) 20.0 - 300.0 mg/dL 123.4 Albumin, Urine Random mg/L <12.0 Albumin/Creat Ratio <30 mg/g <10 Hemoglobin A1C 4.3 - 5.6 % 8.1 (H) Estimated Average Glucose mg/dL 186 Legend: (H) High ASSESSMENT/PLAN: 1. Welcome to Medicare preventive visit - ICD9: V70.0, ICD10: Z00.00 (primary diagnosis) - ECG COMPLETE 2. Type 2 diabetes mellitus with diabetic neuropathy, without long-term current use of insulin (HCC) - ICD9: 250.60, 357.2, ICD10: E11.40 - Worsening control - Per [facility]. - DULAGLUTIDE 4.5 MG/0.5 ML SUBCUTANEOUS PEN INJECTOR - EMPAGLIFLOZIN 25 MG TABLET - HEMOGLOBIN A1C 3. Essential hypertension - ICD9: 401.9, ICD10: I10 - Controlled, no dizziness. - Continue current medications - COMPLETE BLOOD COUNT 4. Hyperlipidemia with target LDL less than 100 - ICD9: 272.4, ICD10: E78.5 - Controlled - Continue current medications - COMPREHENSIVE METABOLIC PANEL - LIPID PANEL BASIC Les Viramontes MD documented in this encounterK[facility]11-[facility]23 Miscellaneous Notes* Telephone Encounter - Jenna Pinon LPN - 03/21/2023 12:07 PM EST Patient has been identified by name and date of : Yes Patient phones for refill(s): Requested Prescriptions Pending Prescriptions Disp Refills lisinopril (ZESTRIL) 5 mg tablet 90 tablet 3 Sig: Take 1 tablet by mouth once daily. glipiZIDE XL (GLUCOTROL XL) 5 mg 24 hr tablet Sig: Take 1 tablet by mouth two times a day. tamsulosin (FLOMAX) 0.4 mg 90 capsule 3 Sig: Take 1 capsule by mouth daily at bedtime. Date of last office visit in primary care: 09/15/2022 Date of next office visit in primary care: 03/23/2023 Last 2 Encounter Wt Readings: Date: Wt: 10/16/2022 105.2 kg (232 lb) 10/08/2022 106.7 kg (235 lb 3.2 oz) Previous labs/tests for medication: Diabetes: Hemoglobin A1C (%) Date Value 03/20/2023 7.3 09/11/2022 8.5 01/01/2021 7.3 04/27/2020 8.1 Hemoglobin A1C (POCT) (%) Date Value 10/01/2020 9.5 Blood Pressure: BUN (mg/dL) Date Value 03/20/2023 11 01/01/2021 12 Sodium (mmol/L) Date Value 03/20/2023 137 01/01/2021 139 Last 1 Encounter BP Readings: Date: BP: 10/16/2022 118/66 Please advise. Thank you. Jenna Pinon LPN. * Telephone Encounter - Val Burroughs - 03/21/2023 10:22 AM EST Avinash is calling to ask that his scripts be sent to [facility]. He is no longer using [facility]. * Telephone Encounter - Val Burroughs - 03/21/2023 10:21 AM EST Pharmacy verified in [facility] Patient has been identified by name and date of : Yes Patient aware RX will be sent to pharmacy. No need to notify patient. Patient phones for refill(s): Requested Prescriptions Pending Prescriptions Disp Refills lisinopril (ZESTRIL) 5 mg tablet 90 tablet 3 Sig: Take 1 tablet by mouth once daily. glipiZIDE XL (GLUCOTROL XL) 5 mg 24 hr tablet Sig: Take 1 tablet by mouth two times a day. tamsulosin (FLOMAX) 0.4 mg 90 capsule 3 Sig: Take 1 capsule by mouth daily at bedtime. Date of last office visit : 09/15/2022 Date of next office visit : 03/23/2023 Last 2 Encounter Wt Readings: Date: Wt: 10/16/2022 105.2 kg (232 lb) 10/08/2022 106.7 kg (235 lb 3.2 oz) Not applicable Please advise. Val Mills documented in this encounterK[facility]07-15-2023 Procedure [facility]06-12-2023 History of Present illness Narrative* Brittany Jennings RT(R) - 10/16/2022 12:50 PM EDT Radiology Service Progress Note PATIENT NAME: Lele Pastrana DATE OF SERVICE: October 16, 2022 TIME: 12:41 PM PATIENT IDENTITY VERIFICATION COMPLETED USING TWO (2) IDENTIFIERS: Name and Date of confirmedby patient verbally. FALL SCREENING: Has the patient had 2 falls in the last year or 1 fall with injury or currently using an Ambulatory Assistive Device (Walker, Cane, Wheelchair, Crutches, etc.)? No PATIENT GENDER DATA: Male PATIENT RELEVANT IMPLANT DATA REVIEWED: Not Applicable RADIOLOGY DEPARTMENT: General X-ray: Exam(s) Completed: Chest X-Ray PERIPHERAL IV DATA: Not applicable SIGNED BY: RT Vidal(R) October 16, 2022 12:41 PM documented in this encounterKettering [facility]06-04-2023 History of Present illness Narrative* Mary Amanda APRN.BUILDING INSPECTION ENGINEER - 10/08/2022 10:42 AM EDT This note was created using [employer]. Subjective Lele Pastrana is a 62 year old male. 62 year old male with PMH DM, HTN, hyperlipidemia, GERD presents for illness. Acute onset one week ago Started with scratchy throat Progressively has worsened +congestion, nasal +sinus pressure +cough Utilized Airborne. Has used Tylenol Attempted decongestant with mild relief Denies tobacco usage. Has progressively worsened. The history is provided by the patient. No mainframe systems engineer was used. Sinus Problem This is a new problem. The current episode started 1 to 4 weeks ago. The problem occurs constantly.The problem has been gradually worsening. Associated symptoms include congestion, coughing and headaches. Pertinent negatives include no abdominal pain, anorexia, arthralgias, change in bowel habit, chest pain, chills, diaphoresis, fatigue, fever, joint swelling, myalgias, nausea, neck pain, numbness, rash, sore throat, swollen glands, urinary symptoms, vertigo, visual change, vomiting or weakness. Nothing aggravates the symptoms. Treatments tried: see HPI. The treatment provided mild relief. PAST MEDICAL HISTORY Diagnosis Date Asthma ASTHMA UNSPECIFIED 06/12/2005 likely GERD related. 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 12/25/2017 Tubular adenoma of colon 11/19/2014 Type 2 diabetes mellitus without complication (HCC) 06/27/2011 PAST SURGICAL HISTORY Procedure Laterality Date COLONOSCOPY FLX DX W/COLLJ SPEC WHEN PFRMD 11/19/2014 Colonoscopy COLONOSCOPY FLX DX W/COLLJ SPEC WHEN PFRMD 02/23/2021 EXCISION PILONIDAL CYST/SINUS SIMPLE 04/1980 HERNIA REPAIR HX 1966 RPR 1ST INGUN HRNA AGE 3 YRS/> REDUCIBLE 1965 Hernia repair, inguinal ALLERGIES Patient has no known allergies. MEDICATIONS dulaglutide (TRULICITY) 3 mg/0.5 mL pen injector Inject 3 mg subcutaneously one time a week. glipiZIDE (GLUCOTROL XL) 5 mg 24 hr tablet Take 1 tablet by mouth twice daily. Omeprazole Magnesium (PRILOSEC OTC) 20 mg tablet Take 1 tablet by mouth daily before breakfast. 1/2hr before meal. atorvastatin (LIPITOR) 10 mg tablet Take 1 tablet by mouth daily at bedtime. lisinopril (ZESTRIL, PRINIVIL) 5 mg tablet Take 1 tablet by mouth once daily. metFORMIN (GLUCOPHAGE) 500 mg tablet Take 2 tablets by mouth twice daily with meals. tamsulosin (FLOMAX) 0.4 mg Take 1 capsule by mouth daily at bedtime. blood sugar diagnostic (ONE TOUCH ULTRA TEST) test strip Test blood sugar(s) one time daily. Dx: 250.00. Insulin: No Lancets (ONE TOUCH DELICA) lancets Test blood sugar(s) once daily. Dx: 250.00. Insulin: No MULTIVITAMIN TAB Take one(1) tablet daily. amoxicillin-clavulanic acid (AUGMENTIN) 875-125 mg per tablet Take 1 tablet by mouth twice daily for 5 days. FAMILY HISTORY Problem Relation Age of Onset Heart Mother pacemaker Cancer Mother Bill cell carcinoma Liver Cancer Mother Hip Fracture Mother Diabetes Father Coronary Artery Disease Father onset age 65, CABG Pneumonia Father Heart Brother arrhythmia, ablated other (benign prostate hypertrophy) Brother Hypertension Brother Diabetes Brother None Brother Social History Tobacco Use Smoking status: Never Smokeless tobacco: Never Vaping Use Vaping Use: Never used Substance Use Topics Alcohol use: No Drug use: No Review of Systems Constitutional: Negative for chills, diaphoresis, fatigue and fever. HENT: Positive for congestion, postnasal drip, sinus pressure and sinus pain. Negative for ear discharge, ear pain, rhinorrhea and sore throat. Eyes: Negative for pain, discharge, redness and itching. Respiratory: Positive for cough. Negative for apnea, choking and chest tightness. Cardiovascular: Negative for chest pain, palpitations and leg swelling. Gastrointestinal: Negative for abdominal pain, anorexia, change in bowel habit, diarrhea, nausea and vomiting. Musculoskeletal: Negative for arthralgias, joint swelling, myalgias and neck pain. Skin: Negative for rash. Allergic/Immunologic: Positive for environmental allergies. Negative for food allergies and immunocompromised state. Neurological: Positive for headaches. Negative for dizziness, vertigo, facial asymmetry, weakness and numbness. Hematological: Negative for adenopathy. Does not bruise/bleed easily. Psychiatric/Behavioral: Negative for agitation and behavioral problems. Objective BP 120/78 Pulse 94 Temp 36.4 C (97.5 F) Resp 21 Wt 106.7 kg (235 lb 3.2 oz) SpO2 97% BMI (P) 34.73 kg/m Physical Exam Vitals and nursing note reviewed. Constitutional: General: He is not in acute distress. Appearance: Normal appearance. He is not ill-appearing, toxic-appearing or diaphoretic. HENT: Head: Normocephalic and atraumatic. Comments: +frontal sinus pressure Right Ear: External ear normal. Left Ear: External ear normal. Ears: Comments: Right TM erythematous Nose: Congestion present. No rhinorrhea. Mouth/Throat: Mouth: Mucous membranes are moist. Pharynx: Oropharynx is clear. Posterior oropharyngeal erythema present. No oropharyngeal exudate. Eyes: General: Right eye: No discharge. Left eye: No discharge. Extraocular Movements: Extraocular movements intact. Conjunctiva/sclera: Conjunctivae normal. Pupils: Pupils are equal, round, and reactive to light. Cardiovascular: Rate and Rhythm: Normal rate and regular rhythm. Pulses: Normal pulses. Heart sounds: Normal heart sounds. No murmur heard. No friction rub. No gallop. Pulmonary: Effort: Pulmonary effort is normal. No respiratory distress. Breath sounds: Normal breath sounds. No stridor. No wheezing, rhonchi or rales. Chest: Chest wall: No tenderness. Abdominal: General: Abdomen is flat. There is no distension. Palpations: Abdomen is soft. There is no mass. Tenderness: There is no abdominal tenderness. There is no guarding or rebound. Hernia: No hernia is present. Musculoskeletal: General: No swelling, tenderness, deformity or signs of injury. Normal range of motion. Cervical back: Normal range of motion and neck supple. No rigidity or tenderness. Right lower leg: No edema. Left lower leg: No edema. Lymphadenopathy: Cervical: No cervical adenopathy. Skin: General: Skin is warm and dry. Capillary Refill: Capillary refill takes less than 2 seconds. Coloration: Skin is not jaundiced or pale. Findings: No bruising, lesion or rash. Neurological: General: No focal deficit present. Mental Status: He is alert and oriented to person, place, and time. Cranial Nerves: No cranial nerve deficit. Sensory: No sensory deficit. Motor: No weakness. Coordination: Coordination normal. Gait: Gait normal. Deep Tendon Reflexes: Reflexes normal. Psychiatric: Mood and Affect: Mood normal. Behavior: Behavior normal. Thought Content: Thought content normal. Assessment and Plan ASSESSMENT/PLAN: 1. Rhinosinusitis - ICD9: 473.9, ICD10: J31.0, J32.9 - Will begin treatment with as per antibiotic as written, see orders - The patient should also be given OTC cough and cold meds as needed, warm salt water gargles, throat lozenges and/or OTC throat spray as needed, and nasal saline gtts and suction prn for the first 5-7 days of treatment. - Supportive care with plenty of fluids, rest, and analgesia prn. - Follow up in 3-5 days if symptoms persist or worsen. Mary Amanda APRN.BUILDING INSPECTION ENGINEER documented in this encounter[facility] History of Present illness Narrative* Les Viramontes MD - 09/15/2022 3:41 PM EDT This note was created using [employer]. Subjective Lele Pastrana is a 62 year old male, here with his spouse. Diabetes was elevating so Dr. Haynes increased Glipizide ER 5 mg to BID, and increased Trulicity to 3 mg weekly. He was tolerating these changes so far. He had symptomatic GERD and had been shuffling over the counter generic PPI. He [facility], or [facility]. He was now on Prilosec OTC with improvement. If he had issues, he will message for a prescription. Review of Systems Constitutional: Negative for fatigue and unexpected weight change. HENT: Negative for trouble swallowing. Respiratory: Negative for shortness of breath. Cardiovascular: Negative for chest pain, palpitations and leg swelling. Gastrointestinal: Negative for blood in stool, nausea and vomiting. Neurological: Positive for numbness. Psychiatric/Behavioral: Negative. ACTIVE PROBLEM LIST Esophageal Reflux Type 2 Diabetes Mellitus With Diabetic Neuropathy, Without Long-Term Current Use of Insulin (Hcc) Hyperlipidemia With Target Ldl Less Than 100 Bph With Obstruction/Lower Urinary Tract Symptoms Essential Hypertension LONI (obstructive sleep apnea) mild. Obesity, Class I, Bmi 30-34.9 Tubular Adenoma of Colon Obesity, Class II, Bmi 35-39.9 Erythema Intertrigo Social History Tobacco Use Smoking status: Never Smokeless tobacco: Never Vaping Use Vaping Use: Never used Substance Use Topics Alcohol use: No Drug use: No Current Outpatient Medications Medication Sig atorvastatin (LIPITOR) 10 mg tablet Take 1 tablet by mouth daily at bedtime. lisinopril (ZESTRIL, PRINIVIL) 5 mg tablet Take 1 tablet by mouth once daily. metFORMIN (GLUCOPHAGE) 500 mg tablet Take 2 tablets by mouth twice daily with meals. tamsulosin (FLOMAX) 0.4 mg Take 1 capsule by mouth daily at bedtime. blood sugar diagnostic (ONE TOUCH ULTRA TEST) test strip Test blood sugar(s) one time daily. Dx: 250.00. Insulin: No Lancets (ONE TOUCH DELICA) lancets Test blood sugar(s) once daily. Dx: 250.00. Insulin: No MULTIVITAMIN TAB Take one(1) tablet daily. dulaglutide (TRULICITY) 3 mg/0.5 mL pen injector Inject 3 mg subcutaneously one time a week. glipiZIDE (GLUCOTROL XL) 5 mg 24 hr tablet Take 1 tablet by mouth twice daily. Omeprazole Magnesium (PRILOSEC OTC) 20 mg tablet Take 1 tablet by mouth daily before breakfast. 1/2hr before meal. No current facility-administered medications for this visit. Objective BP 118/60 Pulse 96 Resp 16 Wt 108.9 kg (240 lb) SpO2 93% BMI (P) 35.44 kg/m Physical Exam Constitutional: Appearance: He is not ill-appearing. Cardiovascular: Rate and Rhythm: Normal rate and regular rhythm. Heart sounds: No murmur heard. No gallop. Pulmonary: Breath sounds: Normal breath sounds. Abdominal: Tenderness: There is no abdominal tenderness. Musculoskeletal: Right lower leg: No edema. Left lower leg: No edema. Neurological: Mental Status: He is alert. Component Latest Ref Rng & Units 09/11/2022 Glucose 74 - 99 mg/dL 108 (H) BUN 9 - 24 mg/dL 14 Creatinine 0.73 - 1.22 mg/dL 0.86 Sodium 136 - 144 mmol/L 138 Potassium 3.7 - 5.1 mmol/L 4.9 Chloride 97 - 105 mmol/L 101 CO2 22 - 30 mmol/L 26 Anion Gap 9 - 18 mmol/L 11 Calcium 8.5 - 10.2 mg/dL 9.4 eGFR >=60 mL/min/1.73m 97 Cholesterol, Total <200 mg/dL 106 Triglyceride <150 mg/dL 127 HDL Cholesterol >39 mg/dL 38 (L) Non HDL Cholesterol <130 mg/dL 68 Fasting Time hrs 13 VLDL Cholesterol <30 mg/dL 25 TC:HDL Ratio <5.10 2.79 LDL Cholesterol <100 mg/dL 43 LDL:HDL Ratio <2.54 1.13 Creatinine, Ur Random (UCRR) 20.0 - 300.0 mg/dL 164.5 Albumin, Urine Random mg/L <12.0 Albumin/Creat Ratio <30 mg/g <7 Hemoglobin A1C 4.3 - 5.6 % 8.5 (H) Estimated Average Glucose mg/dL 197 Depression Screening 09/29/2020 03/10/2022 09/15/2022 09/15/2022 PHQ-2 Score 2 0 0 0 GIAN-2 Total Score - - - - Depression screening tool completed and reviewed. Based on score and interview, patient is not at risk for depression. Screening tool discussed with patient, and I recommended no further interventionat this time. Assessment and Plan 1. Essential hypertension - ICD9: 401.9, ICD10: I10 (primary diagnosis) - good control 2. Type 2 diabetes mellitus with diabetic neuropathy, without long-term current use of insulin (HCC) - ICD9: 250.60, 357.2, ICD10: E11.40 - Worsening control Per [facility]. - DULAGLUTIDE 3 MG/0.5 ML SUBCUTANEOUS PEN INJECTOR - HGB A1C - GLIPIZIDE ER 5 MG TABLET, EXTENDED RELEASE 24 HR 3. Hyperlipidemia with target LDL less than 100 - ICD9: 272.4, ICD10: E78.5 - good control - Continue current medication. - Discussed the benefits of regular aerobic exercise and weight loss. - Encouraged following a low carbohydrate, healthy oil intake diet. - COMP METABOLIC PANEL - LIPID PANEL BASIC 4. Gastroesophageal reflux disease, unspecified whether esophagitis present - ICD9: 530.81, ICD10: K21.9 - OMEPRAZOLE MAGNESIUM 20 MG TABLET,DELAYED RELEASE. Message for prescription if needed. Les Viramontes MD documented in this encounter[facility]11[facility] History of Present illness Narrative* Les Viramontes MD - 03/10/2022 12:02 PM EDT This note was created using [employer]. Subjective Patient presents with: Yearly Exam Lele Pastrana is a 61 year old male. He was doing well. Only concern was a chronic red, itchy rash of his left axilla noted for the past year. Desitin, neosporin creams helped some but not completely. He went on mission trips to [place] every 1-2 years. He followed with Dr. Aldair Haynes for endocrinology, Dr. Leon for ophthalmology; Dr. Talib Gage, dermatology. PAST MEDICAL HISTORY Diagnosis Date Asthma ASTHMA UNSPECIFIED 06/12/2005 likely GERD related. 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 12/25/2017 Tubular adenoma of colon 11/19/2014 Type 2 diabetes mellitus without complication (HCC) 06/27/2011 PAST SURGICAL HISTORY Procedure Laterality Date COLONOSCOPY FLX DX W/COLLJ SPEC WHEN PFRMD 11/19/2014 Colonoscopy COLONOSCOPY FLX DX W/COLLJ SPEC WHEN PFRMD 02/23/2021 EXCISION PILONIDAL CYST/SINUS SIMPLE 04/1980 HERNIA REPAIR HX 1966 RPR 1ST INGUN HRNA AGE 5 YRS/> REDUCIBLE 1965 Hernia repair, inguinal FAMILY HISTORY Problem Relation Age of Onset Heart Mother pacemaker Cancer Mother Bill cell carcinoma Liver Cancer Mother Hip Fracture Mother Diabetes Father Coronary Artery Disease Father onset age 65, CABG Pneumonia Father Heart Brother arrhythmia, ablated other (benign prostate hypertrophy) Brother Hypertension Brother Diabetes Brother None Brother Social History Tobacco Use Smoking status: Never Smokeless tobacco: Never Vaping Use Vaping Use: Never used Substance Use Topics Alcohol use: No Drug use: No Immunization History Administered Date(s) Administered COVID-19 original vaccine, age 12+ yr, monovalent ([employer]-Applika - PURPLE TOP) 08/26/2020 09/16/2020 06/07/2021 DT(PEDIATRIC) 07/18/1984 09/17/1984 03/10/1985 04/04/1986 HIB - 3 Dose Schedule 03/15/1987 Hepatitis A vaccine 08/19/1998 06/11/2003 Influenza Seasonal Inj Age 3+ 02/18/2014 03/28/2017 05/29/2019 03/04/2020 Influenza Seasonal Inj Quad Age 6 Mo - 64 Yrs 04/25/2016 03/10/2022 Influenza Seasonal Inj Quad Age 6 Mo-64 Yrs Pres Free 07/01/2018 Influenza Vaccine, Split-Non Spec 03/14/2005 05/14/2006 04/23/2012 02/04/2013 Meningococcal Conjugate MCV4P Vaccine, IM 06/15/2006 OPV 05/08/1984 07/18/1984 04/04/1986 Pneumovax 10/19/2011 Tdap (Age 7+) 05/23/2010 06/02/2021 Typhoid Oral 10/11/2018 Yellow Fever, Live 07/08/2010 ALLERGIES No Known Allergies Current Outpatient Medications Medication Sig dulaglutide (TRULICITY) 1.5 mg/0.5 mL pen injector Inject 1.5 mg subcutaneously one time a week. Inject once per week. Discard Pen After atorvastatin (LIPITOR) 10 mg tablet Take 1 tablet by mouth daily at bedtime. lisinopril (ZESTRIL, PRINIVIL) 5 mg tablet Take 1 tablet by mouth once daily. metFORMIN (GLUCOPHAGE) 500 mg tablet Take 2 tablets by mouth twice daily with meals. tamsulosin (FLOMAX) 0.4 mg Take 1 capsule by mouth daily at bedtime. glipiZIDE (GLUCOTROL XL) 5 mg 24 hr tablet Take 1 tablet by mouth once daily. ciclopirox (LOPROX) 0.77 % cream Apply to affected area twice daily. Left axillary rash esomeprazole (NEXIUM) 20 mg capsule Take 1 capsule by mouth daily before breakfast. 1/2 hr before meal. blood sugar diagnostic (ONE TOUCH ULTRA TEST) test strip Test blood sugar(s) one time daily. Dx: 250.00. Insulin: No Lancets (ONE TOUCH DELICA) lancets Test blood sugar(s) once daily. Dx: 250.00. Insulin: No MULTIVITAMIN TAB Take one(1) tablet daily. No current facility-administered medications for this visit. Review of Systems Constitutional: Negative. HENT: Negative. Eyes: Negative. Respiratory: Negative. Cardiovascular: Negative. Gastrointestinal: Negative. Genitourinary: Negative. Musculoskeletal: Negative. Skin: Positive for rash. Neurological: Negative. Objective BP (P) 124/72 (BP Site: Left Arm, BP Position: Sitting, BP Cuff Size: Large Adult) Pulse (P) 78 Ht (P) 175.3 cm (5' 9) Wt (P) 108.9 kg (240 lb) BMI (P) 35.44 kg/m Physical Exam Constitutional: General: He is not in acute distress. HENT: Head: Normocephalic. Eyes: General: No scleral icterus. Conjunctiva/sclera: Conjunctivae normal. Cardiovascular: Rate and Rhythm: Normal rate and regular rhythm. Heart sounds: No murmur heard. No gallop. Pulmonary: Breath sounds: Normal breath sounds. Abdominal: Palpations: Abdomen is soft. Tenderness: There is no abdominal tenderness. Musculoskeletal: General: No tenderness. Normal range of motion. Cervical back: Neck supple. Right lower leg: No edema. Left lower leg: No edema. Skin: Comments: 5 x 3 cm erythematous intertriginous patch, left anterior axillar fold. Neurological: General: No focal deficit present. Mental Status: He is alert. Psychiatric: Mood and Affect: Mood normal. Feet:Shoes and socks removed, No deformities, ulcers, calluses, normal distal pulses, and not sensitive to monofilament in most toes. Component Latest Ref Rng & Units 03/06/2022 Protein, Total 6.3 - 8.0 g/dL 6.7 Albumin 3.9 - 4.9 g/dL 4.3 Calcium 8.5 - 10.2 mg/dL 9.3 Bilirubin, Total 0.2 - 1.3 mg/dL 0.5 Alkaline Phosphatase 38 - 113 U/L 93 AST 14 - 40 U/L 26 ALT 10 - 54 U/L 35 Glucose 74 - 99 mg/dL 116 (H) BUN 9 - 24 mg/dL 12 Creatinine 0.73 - 1.22 mg/dL 0.91 Sodium 136 - 144 mmol/L 138 Potassium 3.7 - 5.1 mmol/L 4.4 Chloride 97 - 105 mmol/L 100 CO2 22 - 30 mmol/L 28 Anion Gap 9 - 18 mmol/L 10 eGFR >=60 mL/min/1.73m 95 WBC 3.70 - 11.00 k/uL 8.42 RBC 4.20 - 6.00 m/uL 5.03 Hemoglobin 13.0 - 17.0 g/dL 15.6 Hematocrit 39.0 - 51.0 % 46.3 MCV 80.0 - 100.0 fL 92.0 MCH 26.0 - 34.0 pg 31.0 MCHC 30.5 - 36.0 g/dL 33.7 RDW-CV 11.5 - 15.0 % 12.2 Platelet Count 150 - 400 k/uL 325 MPV 9.0 - 12.7 fL 10.6 Absolute nRBC <0.01 k/uL <0.01 Hemoglobin A1C 4.3 - 5.6 % 7.0 (H) Estimated Average Glucose mg/dL 154 PSA Screening <2.60 ng/mL 0.86 Assessment and Plan 1. Routine medical exam - ICD9: V70.0, ICD10: Z00.00 (primary diagnosis) - Counseled on healthy diet and regular exercise - Discussed need for and benefit of weight loss. No weight on file for this encounter. - Depression screening tool completed and reviewed with patient. Based on score and interview, patient is not at risk for depression and recommended no further intervention at this time. - Vaccines: Covid 19, influenza. - DEPRESSION SCREENING/ASSESSMENT 2. Hyperlipidemia with target LDL less than 100 - ICD9: 272.4, ICD10: E78.5 - good control - Continue current medication. - ATORVASTATIN 10 MG TABLET - LIPID PANEL BASIC 3. Essential hypertension - ICD9: 401.9, ICD10: I10 - good control - Continue current medication(s) - Goal of BP <130/80 - LISINOPRIL 5 MG TABLET 4. BPH with obstruction/lower urinary tract symptoms - ICD9: 600.01, 599.69, ICD10: N40.1, N13.8 Controlled. - TAMSULOSIN 0.4 MG CAPSULE 5. Obesity, Class II, BMI 35-39.9 - ICD9: 278.00, ICD10: E66.9 Weight decreasing - Behavioral intervention 6. Type 2 diabetes mellitus with diabetic neuropathy, without long-term current use of insulin (HCC) - ICD9: 250.60, 357.2, ICD10: E11.40 Controlled. - Continue current medications - TRULICITY 1.5 MG/0.5 ML SUBCUTANEOUS PEN INJECTOR - METFORMIN 500 MG TABLET - GLIPIZIDE ER 5 MG TABLET, EXTENDED RELEASE 24 HR - BASIC METABOLIC PNL - HGB A1C - ALBUMIN/CREAT RATIO RND UR 7. Erythema intertrigo - ICD9: 695.89, ICD10: L30.4 Left axilla. - CICLOPIROX 0.77 % TOPICAL CREAM Discussed medication dosage, usage, goals of therapy, and side effects. 8. Need for influenza vaccination - ICD9: V04.81, ICD10: Z23 - INFLUENZA VACCINE QUADRIVALENT 6 MO - 64 YRS IM 9. Need for COVID-19 vaccine - ICD9: V04.89, ICD10: Z23 - PFIZER-BIONTECH COVID-19 BIVALENT BOOSTER VACCINE, AGE 12+ YR Les Viramontes MD documented in this encounterK[facility]10[facility]24-[facility] Miscellaneous Notes* Telephone Encounter - Margarita Bajwa RN - 02/27/2022 12:00 PM EDT [facility] called and reports that she needs to have Pts most recent labs faxed over to Dr Haynes's office. Faxed labs to # [phone]. documented in this encounterK[facility]06-24-2022 History of Present illness Narrative* Les Viramontes MD - 10/28/2021 9:58 AM EDT This note was created using [employer]. Subjective Lele Pastrana is a 61 year old male. He has been following up with [facility] mostthe past year. He was unable to get Trulicity. He was now on double glipizide and Lantus.. He hopedto resume Trulicity soon. His A1C was up. He otherwise felt well. Review of Systems Constitutional: Negative. Respiratory: Negative. Cardiovascular: Negative. Gastrointestinal: Negative. Neurological: Negative. ACTIVE PROBLEM LIST Esophageal Reflux Type 2 Diabetes Mellitus With Diabetic Neuropathy, Without Long-Term Current Use of Insulin ([facility]) Hyperlipidemia With Target Ldl Less Than 100 Bph With Obstruction/Lower Urinary Tract Symptoms Essential Hypertension LONI (obstructive sleep apnea) mild. Obesity, Class I, Bmi 30-34.9 Tubular Adenoma of Colon Current Outpatient Medications Medication Sig glipiZIDE (GLUCOTROL XL) 5 mg 24 hr tablet Take 1 tablet by mouth twice daily with meals. atorvastatin (LIPITOR) 10 mg tablet Take 1 tablet by mouth daily at bedtime. lisinopril (ZESTRIL, PRINIVIL) 5 mg tablet Take 1 tablet by mouth once daily. metFORMIN (GLUCOPHAGE) 500 mg tablet Take 2 tablets by mouth twice daily with meals. tamsulosin (FLOMAX) 0.4 mg Take 1 capsule by mouth daily at bedtime. esomeprazole (NEXIUM) 20 mg capsule Take 1 capsule by mouth daily before breakfast. 1/2 hr before meal. melatonin 5 mg tablet Take 5 mg by mouth at bedtime as needed. blood sugar diagnostic (ONE TOUCH ULTRA TEST) test strip Test blood sugar(s) one time daily. Dx: 250.00. Insulin: No Lancets (ONE TOUCH DELICA) lancets Test blood sugar(s) once daily. Dx: 250.00. Insulin: No MULTIVITAMIN TAB Take one(1) tablet daily. insulin glargine (LANTUS SOLOSTAR U-100 INSULIN) 100 unit/mL (3 mL) Inject 10 Units subcutaneously once daily. No current facility-administered medications for this visit. Objective BP (P) 122/68 (BP Site: Left Arm, BP Position: Sitting, BP Cuff Size: Large Adult) Pulse (P) 84 Temp (P) 36.1 C (97 F) (Temporal) Resp (P) 16 Wt (P) 107 kg (236 lb) BMI (P) 34.85 kg/m Physical Exam Constitutional: Appearance: Normal appearance. Cardiovascular: Rate and Rhythm: Normal rate and regular rhythm. Heart sounds: No murmur heard. No gallop. Pulmonary: Breath sounds: Normal breath sounds. Musculoskeletal: Right lower leg: No edema. Left lower leg: No edema. Neurological: Mental Status: He is alert. Component Latest Ref Rng & Units 10/25/2021 Cholesterol, Total <200 mg/dL 141 Triglyceride <150 mg/dL 176 (H) HDL Cholesterol >39 mg/dL 41 Non HDL Cholesterol <130 mg/dL 100 Fasting Time hrs 12 VLDL Cholesterol <30 mg/dL 35 (H) TC:HDL Ratio <5.10 3.44 LDL Cholesterol <100 mg/dL 65 LDL:HDL Ratio <2.54 1.59 Hemoglobin A1C 4.3 - 5.6 % 9.5 (H) Estimated Average Glucose mg/dL 226 Assessment and Plan 1. Type 2 diabetes mellitus with diabetic neuropathy, without long-term current use of insulin (HCC) - ICD9: 250.60, 357.2, ICD10: E11.40 (primary diagnosis) worsening control - Continue current medications per [facility]. - ALBUMIN/CREAT RATIO RND UR - COMP METABOLIC PANEL - HGB A1C - LANTUS SOLOSTAR U-100 INSULIN 100 UNIT/ML (3 ML) SUBCUTANEOUS PEN - GLIPIZIDE ER 5 MG TABLET, EXTENDED RELEASE 24 HR 2. Essential hypertension - ICD9: 401.9, ICD10: I10 - good control - Continue current medication(s) - Goal of BP <130/80 - CBC 3. Hyperlipidemia with target LDL less than 100 - ICD9: 272.4, ICD10: E78.5 - good control - Continue current medication. 4. Screening for prostate cancer - ICD9: V76.44, ICD10: Z12.5 - Risks/benefits of prostate cancer screening discussed. screening PSA ordered - PSA/PROSTSPECAG SCRN Les Viramontes MD documented in this encounterK[facility]08-21-[facility] History of Past illness Narrative* Problem Noted Date Resolved Date Obesity, Class II, BMI 35-39.9 12/25/2017 0 10/01/2020 Dysmetabolic syndrome 11/12/2009 10/19/2011 Diarrhea 01/07/2008 07/26/2009 Overview: Completed doxycycline 200 mg qd for malaria prophylaxis as of 08: 1 week prior and 3 wks after Used a course of Vermox as of 8-08 Obesity, unspecified 01/07/2008 12/25/2017 Depressive disorder, not elsewhere classified 10/30/2014 documented as of this encounter (statuses as of 10/28/2021) [facility] of [facility] illness Narrative* Problem Noted Date Resolved Date Obesity, Class II, BMI 35-39.9 12/25/2017 0 10/01/2020 Dysmetabolic syndrome 11/12/2009 10/19/2011 Diarrhea 01/07/2008 07/26/2009 Overview: Completed doxycycline 200 mg qd for malaria prophylaxis as of 12-12: 1 week prior and 3 wks after Used a course of Vermox as of 8 Obesity, unspecified 01/07/2008 12/25/2017 Depressive disorder, not elsewhere classified 10/30/2014 documented as of this encounter (statuses as of 02/27/2022) [facility] of [facility] illness Narrative* Problem Noted Date Resolved Date Obesity, Class II, BMI 35-39.9 12/25/2017 0 10/01/2020 Dysmetabolic syndrome 11/12/2009 10/19/2011 Diarrhea 01/07/2008 07/26/2009 Overview: Completed doxycycline 200 mg qd for malaria prophylaxis as of 12-12: 1 week prior and 3 wks after Used a course of Vermox as of 12-12 Obesity, unspecified 01/07/2008 12/25/2017 Depressive disorder, not elsewhere classified 10/30/2014 documented as of this encounter (statuses as of 03/10/2022) [facility] illness Narrative* Problem Noted Date Resolved Date Obesity, Class II, BMI 35-39.9 12/25/2017 0 10/01/2020 Dysmetabolic syndrome 11/12/2009 10/19/2011 Diarrhea 01/07/2008 07/26/2009 Overview: Completed doxycycline 200 mg qd for malaria prophylaxis as of 08: 1 week prior and 3 wks after Used a course of Vermox as of 8 Obesity, unspecified 01/07/2008 12/25/2017 Depressive disorder, not elsewhere classified 10/30/2014 documented as of this encounter (statuses as of 05/11/2022) [facility] illness Narrative* Problem Noted Date Resolved Date Obesity, Class II, BMI 35-39.9 12/25/2017 0 10/01/2020 Dysmetabolic syndrome 11/12/2009 10/19/2011 Diarrhea 01/07/2008 07/26/2009 Overview: Completed doxycycline 200 mg qd for malaria prophylaxis as of 12-12: 1 week prior and 3 wks after Used a course of Vermox as of 8 Obesity, unspecified 01/07/2008 12/25/2017 Depressive disorder, not elsewhere classified 10/30/2014 documented as of this encounter (statuses as of 09/16/2022) [facility] illness Narrative* Problem Noted Date Resolved Date Obesity, Class II, BMI 35-39.9 12/25/2017 0 10/01/2020 Dysmetabolic syndrome 11/12/2009 10/19/2011 Diarrhea 01/07/2008 07/26/2009 Overview: Completed doxycycline 200 mg qd for malaria prophylaxis as of 12-12: 1 week prior and 3 wks after Used a course of Vermox as of 8 Obesity, unspecified 01/07/2008 12/25/2017 Depressive disorder, not elsewhere classified 10/30/2014 documented as of this encounter (statuses as of 10/08/2022) [facility] illness Narrative* Problem Noted Date Diagnosed Date Resolved Date Obesity, Class II, BMI 35-39.9 12/25/2017 10/01/2020 Dysmetabolic syndrome 11/12/20092011 Diarrhea 01/07/2008 07/26/2009 Overview: Completed doxycycline 200 mg qd for malaria prophylaxis as of 12-12: 1 week prior and 3 wks after Used a course of Vermox as of 12-12 Obesity, unspecified 01/07/2008 018 Depressive disorder, not elsewhere classified 07/12/19 06 10/30/2014 documented as of this encounter (statuses as of 03/21/2023) [facility]* Diagnosis Type 2 diabetes mellitus with diabetic neuropathy, without long-term current use of insulin (HCC)- Primary Essential hypertension Unspecified essential hypertension Hyperlipidemia with target LDL less than 100 Other and unspecified hyperlipidemia Screening for prostate cancer Special screening for malignant neoplasm of prostate documented in this encounter [facility]* Diagnosis Routine medical exam- Primary Routine general medical examination at a health care facility Hyperlipidemia with target LDL less than 100 Other and unspecified hyperlipidemia Essential hypertension Unspecified essential hypertension BPH with obstruction/lower urinary tract symptoms Hypertrophy of prostate with urinary obstruction and other lower urinary tract symptoms (LUTS) Obesity, Class II, BMI 35-39.9 Obesity, unspecified Type 2 diabetes mellitus with diabetic neuropathy, without long-term current use of insulin (HCC) Erythema intertrigo Other specified erythematous condition Need for influenza vaccination Need for prophylactic vaccination and inoculation against influenza Need for COVID-19 vaccine [facility] Erythema intertrigo- Primary Other specified erythematous condition [facility] Diagnosis Essential hypertension- Primary Unspecified essential hypertension Type 2 diabetes mellitus with diabetic neuropathy, without long-term current use of insulin (HCC) Hyperlipidemia with target LDL less than 100 Other and unspecified hyperlipidemia Gastroesophageal reflux disease, unspecified whether esophagitis present [facility] Diagnosis Rhinosinusitis- Primary Unspecified sinusitis (chronic) [facility] Diagnosis Onset Date Resolution Status Diabetes chronic Obesity chronic 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 Asthma acute Type 2 diabetes mellitus chr onic Sinusitis noneactive Diabetes chronic Obesity [facility] Work Phone: Evaluation note* Diagnosis Essential hypertension Unspecified essential hypertension Type 2 diabetes mellitus with diabetic neuropathy, without long-term current use of insulin (HCC) BPH with obstruction/lower urinary tract symptoms Hypertrophy of prostate with urinary obstruction and other lower urinary tract symptoms (LUTS) [facility]* Diagnosis Welcome to Medicare preventive visit- Primary Routine general medical examination at a health care facility Type 2 diabetes mellitus with diabetic neuropathy, without long-term current use of insulin (HCC) Essential hypertension Unspecified essential hypertension Hyperlipidemia with target LDL less than 100 Other and unspecified hyperlipidemia [facility]* Diagnosis BPH with obstruction/lower urinary tract symptoms Hypertrophy of prostate with urinary obstruction and other lower urinary tract symptoms (LUTS) Type 2 diabetes mellitus with diabetic neuropathy, without long-term current use of insulin (HCC) Essential hypertension Unspecified essential hypertension Hyperlipidemia with target LDL less than 100 Other and unspecified hyperlipidemia [facility] Diagnosis Acute cough [facility]* Diagnosis Laceration of left thumb without foreign body without damage to nail, initial encounter- Primary [facility]* Diagnosis Visit for suture removal- Primary Encounter for removal of sutures documented in this encounter [facility] note* Diagnosis Type 2 diabetes mellitus with diabetic neuropathy, without long-term current use of insulin (HCC)- Primary Essential hypertension Unspecified essential hypertension Hyperlipidemia with target LDL less than 100 Other and unspecified hyperlipidemia [facility] Diagnosis Hyperlipidemia with target LDL less than 100 Other and unspecified hyperlipidemia BPH with obstruction/lower urinary tract symptoms Hypertrophy of prostate with urinary obstruction and other lower urinary tract symptoms (LUTS) Essential hypertension Unspecified essential hypertension Type 2 diabetes mellitus with diabetic neuropathy, without long-term current use of insulin (HCC) documented in this encounter [facility] for referral (narrative)* Outpatient Procedure (Routine) - Pending Review Specialty Diagnoses / Procedures Referred By Selvin t Referred [facility] Diagnoses Welcome to Medicare preventive visit Procedures ECG COMPLETE ECG ROUTINE ECG W/LEAST 12 LDS W/I&R Les Viramontes MD [address] [place] [address] [facility] [address] [place] [id number] Referral ID Status Reason Start Date Expiration Date Visits Requested Visits Authorized [id number] Pending Review Auto-Generat ed Referral 09/21/2023 09/20/2024 1 [facility]No reason for referral information availableWParkview Health Work Phone: Advance Directives No Advanced Directives Records FoundDocuments on File Type Date Recorded Patient Screen Cleaner Expl anation Advance Directive(s) 02/23/2021 6:40 AM Advance Directive Response Recorded Date/ Time Living Will No August 23, 2016 3:15pm Power of Human Resources Clerk No August 23 3:15pm Documents on File Type Date Recorded Patient Screen Cleaner Expl anation Advance Directive(s) 10/10/2023 9:06 AM Advance Directive Response Recorded Date/ Time Living Will Yes June 09 6:42pm Do you have a Healthcare Power of Human Resources Clerk? Yes June 09, 2024 6:42pm Name of Medical Power of Human Resources Clerk June 09, 2024 6:42pm Chief Complaint and Reason for Visit Chief Complaint 6 M FU re-establish/Asthma ASTHMA Asthma 3 M FU Reason for Visit Diabetes Obesity Polyneuropathy due to type 2 diabetes mellitus Asthma Type 2 diabetes mellitus Sinusitis Diabetes Obesity Chief Complaint Admit Date daytime hypersomnia May 19, 2024 7 :49pm SOB June 09, 2024 4 :02pm Moderate LONI with hypoxemia June 8:14pm 3 M FU, RS 07/31August 06, 2024 2:46 pm 3 M FU August 15, 2024 1:3 3pm R09.02 - Hypoxemia September 09, 2024 8:09am Reason for Visit Admit Date Diabetes August 06, 2024 2:46 pm Hyperlipidemia August 06, 2024 2:46 pm Hypertension August 06, 2024 2:46 pm Neuropathy August 06, 2024 2:46 pm Obesity August 06, 2024 2:46 pm Hypoxemia August 15, 2024 1:3 3pm Asthma August 15, 2024 1:3 3pm LONI (obstructive sleep apnea) August 1:33pm Chief Complaint Admit Date 3 M FU, RS 07/31August 06, 2024 2:46 pm 3 M FU August 15, 2024 1:3 3pm R09.02 - Hypoxemia September 09, 2024 8:09am R09.02 - Hypoxemia September 09, 2024 8:17am R09.02 - Hypoxemia September 16, 2024 7:58a m R09.02 - Hypoxemia September 19, 2024 11:25 am 3 M FU, RS 07/31November 05, 2024 2:34p m Chief Complaint Admit Date 3 M FU, RS 07/31August 06, 2024 2:46 pm 3 M FU August 15, 2024 1:3 3pm R09.02 - Hypoxemia September 09, 2024 8:09am R09.02 - Hypoxemia September 09, 2024 8:17am R09.02 - Hypoxemia September 16, 2024 7:58a m R09.02 - Hypoxemia September 19, 2024 11:25 am 3 M FU, RS 07/31November 05, 2024 2:34p m 3 M FU November 28, 2024 2:38 pm Reason for Visit Admit Date Diabetes August 06, 2024 2:46 pm Hyperlipidemia August 06, 2024 2:46 pm Hypertension August 06, 2024 2:46 pm Neuropathy August 06, 2024 2:46 pm Obesity August 06, 2024 2:46 pm Hypoxemia August 15, 2024 1:3 3pm Asthma August 15, 2024 1:3 3pm LONI (obstructive sleep apnea) August 1:33pm Hyperlipidemia November 05, 2024 2:34p m Hypertension November 05, 2024 2:34p m Obesity November 05, 2024 2:34p m Polyneuropathy due to type 2 diabetes me llitus November 05, 2024 2:34pm Type 2 diabetes mellitus November 05, 2024 2:34pm Hypoxemia November 28, 2024 2:38 pm Asthma November 28, 2024 2:38 pm LONI (obstructive sleep apnea) November 28, 2024 2:38pm Family History No Family History Records Found Relationship Condition Age at Onset Recorded Date/T sanjeev Not Specified Malignant neoplasm of skin Unknown High blood cholesterol Unknown Hypertension Unknown father Cerebrovascular accident (CVA) Unknown Diabetes mellitus Unknown Cardiac disease Unknown Myocardial infarction 64 mother Diabetes mellitus Unknown grandfather Diabetes mellitus Unknown Summary Purpose Additional Source Comments Source Comments (unrecognize d section and content) In the event this informatio n is protected by the Federal Confidentiality of Alcohol and Drug Abuse Patient Records regulations: The Federal rules restrict any use of the information to criminally investigate or prosecute any alcohol or drug abuse patient.[facility] the event this information is protected by the Federal Confidentiality of Alcohol and Drug Abuse Patient Records regulations: The Federal rules restrict any use of the information to criminally investigate or prosecute any alcohol or drug abuse patient.[facility] the event this information is protected by the Federal Confidentiality of Alcohol and Drug Abuse Patient Records regulations: The Federal rules restrict any use of the information to criminally investigate or prosecute any alcohol or drug abuse patient.[facility] the event this information is protected by the Federal Confidentiality of Alcohol and Drug Abuse Patient Records regulations: The Federal rules restrict any use of the information to criminally investigate or prosecute any alcohol or drug abuse patient.[facility] the event this information is protected by the Federal Confidentiality of Alcohol and Drug Abuse Patient Records regulations: The Federal rules restrict any use of the information to criminally investigate or prosecute any alcohol or drug abuse patient.[facility] CenterIn the event this information is protected by the Federal Confidentiality of Alcohol and Drug Abuse Patient Records regulations: The Federal rules restrict any use of the information to criminally investigate or prosecute any alcohol or drug abuse patient.[facility] Center[facility] the event this information is protected by the Federal Confidentiality of Alcohol and Drug Abuse Patient Records regulations: The Federal rules restrict any use of the information to criminally investigate or prosecute any alcohol or drug abuse patient.[facility] the event this information is protected by the Federal Confidentiality of Alcohol and Drug Abuse Patient Records regulations: The Federal rules restrict any use of the information to criminally investigate or prosecute any alcohol or drug abuse patient.[facility] the event this information is protected by the Federal Confidentiality of Alcohol and Drug Abuse Patient Records regulations: The Federal rules restrict any use of the information to criminally investigate or prosecute any alcohol or drug abuse patient.[facility] Center[facility] the event this information is protected by the Federal Confidentiality of Alcohol and Drug Abuse Patient Records regulations: The Federal rules restrict any use of the information to criminally investigate or prosecute any alcohol or drug abuse patient.[facility] Center[facility] the event this information is protected by the Federal Confidentiality of Alcohol and Drug Abuse Patient Records regulations: The Federal rules restrict any use of the information to criminally investigate or prosecute any alcohol or drug abuse patient.[facility] the event this information is protected by the Federal Confidentiality of Alcohol and Drug Abuse Patient Records regulations: The Federal rules restrict any use of the information to criminally investigate or prosecute any alcohol or drug abuse patient.[facility] CenterIn the event this information is protected by the Federal Confidentiality of Alcohol and Drug Abuse Patient Records regulations: The Federal rules restrict any use of the information to criminally investigate or prosecute any alcohol or drug abuse patient.[facility] CenterIn the event this information is protected by the Federal Confidentiality of Alcohol and Drug Abuse Patient Records regulations: The Federal rules restrict any use of the information to criminally investigate or prosecute any alcohol or drug abuse patient.[facility] CenterIn the event this information is protected by the Federal Confidentiality of Alcohol and Drug Abuse Patient Records regulations: The Federal rules restrict any use of the information to criminally investigate or prosecute any alcohol or drug abuse patient.[facility] Reason for Visit (unrecogniz ed section and content) Reason Comments F/U 6 months Reason Comments Results, Lab Reason Onset Date Comments Yearly Exam Immunizations 03/10/2022 Flu vaccination Reason Comments F/U Diabetes 6 Month Reason Comments Sinus Problem Cough x 4 days Reason Onset Date Comments Refill Request 03/21/2023 Reason Comments Medicare Wellness Exam Reason Comments Medication Request Reason Comments Laceration left thumb with band saw x 30 mins Reason Comments Suture Removal Reason Onset Date Comments Refill Request 07/01/2024 Reason Onset Date Comments Refill Request 10/07/2024 Care Teams (unrecognized sec tion and content) Java Web Services Developer Relationship Specialty Start Date End Date Les Viramontes MD [address] [facility] [place] [address] PCP - General 07/26/09 Java Web Services Developer Relationship Specialty Start Date End Date Les Viramontes MD [address] [facility] [place] [address] PCP - General 07/26/09 Java Web Services Developer Relationship Specialty Start Date End Date Les Viramontes MD [address] [place] [address] PCP - General 07/26/09 Java Web Services Developer Relationship Specialty Start Date End Date Les Viramontes MD [address] [place] [place] [address] PCP - General 07/26/09 Java Web Services Developer Relationship Specialty Start Date End Date Les Viramontes MD [address] [place] [address] PCP - General 07/26/09 Java Web Services Developer Relationship Specialty Start Date End Date Les Viramontes MD [address] [facility] [place] [address] PCP - General 07/26/09 Team Status: Active Member Role Status Dates Dr. Les Viramontes MD Family Provider Active Dr. Les Viramontes MD Primary Care Provider Active Team Status: Inactive Member Role Status Dates Dr. Les Viramontes MD Primary Care Provider, Refer ring Provider Active Gladys Wick NP-C Attending Provider Active Team Status: Inactive Member Role Status Dates Dr. Les Viramontes MD Primary Care Provider, Refer ring Provider Active Dr. Surjit Barrera MD Attending Provider Active Team Status: Active Member Role Status Dates Dr. Les Viramontes MD Primary Care Provider Active Dr. Surjit Barrera MD Referring Provider, Other Provid er Active Dr. Lex Dial DO Attending Provider Active Team Status: Inactive Member Role Status Dates Dr. Les Viramontes MD Primary Care Provider Active Dr. Surjit Barrera MD Attending Provider, Referring Pr ovider Active Java Web Services Developer Relationship Specialty Start Date End Date Les Viramontes MD [address] [facility] [place] [address] PCP - General 07/26/09 Java Web Services Developer Relationship Specialty Start Date End Date Les Viramontes MD [address] [facility] [place] [address] PCP - General 07/26/09 Java Web Services Developer Relationship Specialty Start Date End Date Les Viramontes MD [address] [facility] [place] [address] PCP - General 07/26/09 Java Web Services Developer Relationship Specialty Start Date End Date Les Viramontes MD [address] [facility] [place] [address] PCP - General 07/26/09 Java Web Services Developer Relationship Specialty Start Date End Date Les Viramontes MD [address] [facility] [place] [address] PCP - General 07/26/09 Java Web Services Developer Relationship Specialty Start Date End Date Les Viramontes MD [address] [facility] [place] [address] PCP - General 07/26/09 Java Web Services Developer Relationship Specialty Start Date End Date Les Viramontes MD [address] [facility] [place] [address] PCP - General 07/26/09 Marisa Arias, CRITICAL CARE EDUCATOR.BUILDING INSPECTION ENGINEER [address] [facility] [place] [address] Histologist Technologist Internal Medicine 04/14/24 Java Web Services Developer Relationship Specialty Start Date End Date Les Viramontes MD [address] [place] [address] PCP - General 07/26/09 Marisa Arias, CRITICAL CARE EDUCATOR.BUILDING INSPECTION ENGINEER [address] [place] [address] Histologist Technologist Internal Medicine 04/14/24 Team Status: Active Member Role Status Dates Dr. Les Viramontes MD Primary Care Provider Active Team Status: Inactive Member Role Status Dates Dr. Les Viramontes MD Primary Care Provider Active Start: May 19, 2024 End: May 19, 2024 BEN Price Attending Provider Active Start: May 19, 2024 End: May 19, 2024 BEN Price Referring Provider Active Start: May 19, 2024 End: May 19, 2024 Team Status: Inactive Member Role Status Dates Dr. Les Viramontes MD Primary Care Provider Active Start: June 09, 2024 End: June 09, 2024 Dr. Ed Montoya DO Attending Provider Active Start : June 09, 2024 End: June 09, 2024 Dr. Ed Montoya DO Emergency Provider Active Start : June 09, 2024 End: June 09, 2024 Team Status: Inactive Member Role Status Dates Dr. Les Viramontes MD Primary Care Provider Active Start: June 13, 2024 End: June 13, 2024 BEN Price Attending Provider Active Start: June 13, 2024 End: June 13, 2024 BEN Price Referring Provider Active Start: June 13, 2024 End: June 13, 2024 Team Status: Inactive Member Role Status Dates Dr. Les Viramontes MD Primary Care Provider Active Start: August 06, 2024 End: August 06, 2024 Dr. Les Viramontes MD Referring Provider Active Start: August 06, 2024 End: August 06, 2024 BEN Garrido Attending Provider Active Start: August 06, 2024 End: August 06, 2024 Team Status: Inactive Member Role Status Dates Dr. Les Viramontes MD Primary Care Provider Active Start: August 15, 2024 End: August 15, 2024 Dr. Les Viramontes MD Referring Provider Active Start: August 15, 2024 End: August 15, 2024 BEN Price Attending Provider Active Start: August 15, 2024 End: August 15, 2024 Team Status: Inactive Member Role Status Dates Dr. Les Viramontes MD Primary Care Provider Active Start: September 09, 2024 End: September 09, 2024 BEN Price Attending Provider Active Start: September 09, 2024 End: September 09, 2024 BEN Price Referring Provider Active Start: September 09, 2024 End: September 09, 2024 Java Web Services Developer Relationship Specialty Start Date End Date Les Viramontes MD [address] [place] [address] PCP - General 07/26/09 Marisa Arias, SWETA.BUILDING INSPECTION ENGINEER [address] [place] [address] Histologist Technologist Internal Medicine 04/14/24 Team Status: Active Member Role/Relationship Status Dates Dr. Les Viramontes MD Primary Care Provider Active Team Status: Inactive Member Role/Relationship Status Dates Dr. Les Viramontes MD Primary Care Provider Active Start: August 06, 2024 End: August 06, 2024 Dr. Les Viramontes MD Referring Provider Active Start: August 06, 2024 End: August 06, 2024 BEN Garrido Attending Provider Active Start: August 06, 2024 End: August 06, 2024 Team Status: Inactive Member Role/Relationship Status Dates Dr. Les Viarmontes MD Primary Care Provider Active Start: August 15, 2024 End: August 15, 2024 Dr. Les Viramontes MD Referring Provider Active Start: August 15, 2024 End: August 15, 2024 Luanne Bar NP-C Attending Provider Active Start: August 15, 2024 End: August 15, 2024 Team Status: Inactive Member Role/Relationship Status Dates Dr. Les Viramontes MD Primary Care Provider Active Start: September 09, 2024 End: September 09, 2024 Luanne Bar NURSING UNIT CLERK-C Attending Provider Active Start: September 09, 2024 End: September 09, 2024 Luanne Bar NURSING UNIT CLERK-C Referring Provider Active Start: September 09, 2024 End: September 09, 2024 Team Status: Active Member Role/Relationship Status Dates Dr. Les Viramontes MD Primary Care Provider Active Start: September 09, 2024 Dr. Lex Dial , Attending Provider Active S tart: September 09, 2024 Luanne Bar NURSING UNIT CLERK-C Referring Provider Active Start: September 09, 2024 Team Status: Inactive Member Role/Relationship Status Dates Dr. Les Viramontes MD Primary Care Provider Active Start: September 16, 2024 End: September 16, 2024 Luanne Bar NURSING UNIT CLERK-C Attending Provider Active Start: September 16, 2024 End: September 16, 2024 Luanne Bar NP-C Referring Provider Active Start: September 16, 2024 End: September 16, 2024 Team Status: Active Member Role/Relationship Status Dates Dr. Les Viramontes MD Primary Care Provider Active Start: September 19, 2024 Luanne Bar NURSING UNIT CLERK-C Referring Provider Active Start: September 19, 2024 Luanne Bar NP-C Other Provider Active St art: September 19, 2024 Dr. Lex Dial , Attending Provider Active S tart: September 19, 2024 Team Status: Inactive Member Role/Relationship Status Dates Dr. Les Viramontes MD Primary Care Provider Active Start: November 05, 2024 End: November 05, 2024 Dr. Les Viramontes MD Referring Provider Active Start: November 05, 2024 End: November 05, 2024 Gladys Wick NURSING UNIT CLERK-C Attending Provider Active Start: November 05, 2024 End: November 05, 2024 Team Status: Inactive Member Role/Relationship Status Dates Dr. Les Viramontes MD Primary Care Provider Active Start: November 28, 2024 End: November 28, 2024 Dr. Les Viramontes MD Referring Provider Active Start: November 28, 2024 End: November 28, 2024 Luanne Bar NP-C Attending Provider Active Start: November 28, 2024 End: November 28, 2024 Goals (unrecognized section and content) Goals may be documented in a n alternate sectionGoals may be documented in an alternate sectionGoals may be documented in an alternate sectionGoals may be documented in an alternate section (unrecognized sect ion and content) No Status Records FoundNo Status Records Found INFORMATION SOURCE (unrecogn ized section and content) DATE CREATED AUTHOR 10/02/2024 [facility] DATE CREATED AUTHOR 'S ORGANIZ ATION 12/10/2024 [facility] FOR RECORDS PERTAINING TO PATIENTS WHO ARE OR HAVE BEEN ENROLLED IN A CHEMICAL DEPENDENCY/SUBSTANCEABUSE PROGRAM, SOME INFORMATION MAY BE OMITTED. This clinical summary was aggregated from multiple sources. Caution should be exercised in using it in the provision of clinical care. This summary normalizes information from multiple sources, and as a consequence, information in this document may materially change the coding, format and clinical context of patient data. In addition, data may be omitted in some cases. CLINICAL DECISIONS SHOULD BE BASED ON THE PRIMARY CLINICAL RECORDS. [employer] provides no warranty or guarantee of the accuracy or completeness of information in this document.
== END | disposition home or self-care (01) ==
LOC: SL 09:01
PROVIDERS: PCP Internal Medicine; Referring Provider Nurse Practitioner Family; Visit Provider Nurse Practitioner Family
DX: G47.33 Obstructive sleep apnea (adult) (pediatric) (principal)
CPT/HCPCS: 94762

== ENCOUNTER → 2025-03-10 | Outpatient (CLI) | payer MEDICARE, BC, SELFPAY | END | disposition home or self-care (01) | LOC: SL 09:15 | PROVIDERS: PCP Internal Medicine; Referring Provider Nurse Practitioner Family; Visit Provider Nurse Practitioner Family | DX: G47.33 Obstructive sleep apnea (adult) (pediatric) (principal) | CPT/HCPCS: 94762 ==